=== PATIENT | female | born 1995 | race African-American/Black ===

== ENCOUNTER 2024-12-29 19:12 | Emergency (ER) | payer OTHER, SELFPAY ==
--- OUTSIDE RECORDS SUMMARY | 2024-12-29 19:20 | XMS_ITS ---
[place] ANESTHESIA PRE/POST-OP CONSULT [facility] Encounter Summary Created on: December 29, 2024 SYLVESTER DAVID : 1995 Sex: Female Author Name [facility] [place] Organization [facility] [place] Address [address] [place] [address] Care Team Providers Care Warp Spooler Name Role Phone ADELAIDE CERDA Primary Care Provider Unavailabl NAIMA Schaefer Primary Care Provider Unavailab SUKHJINDER Blas Primary Care Provider Unavailab mike Insurance Providers: All historical and current Section Date Range: From patient's date of to the date document was created. This section includes the names of all active insurance providers for the patient. Insurance Provider Type of Coverage Plan Name Start of Policy Coverage End of Policy Coverage Group Number Member ID Insurance Provider's Telephone Number Policy Sorenson's Name Patient's Relationship to Policy Sorenson [facility] Oct 20, 2020 [employer] [id number] DIONNA PHAN SPOUSE Selected Encounter This section includes the information on record at [place] for the Encounter. Date/Time Encounter Type Encounter Description Reason Provider Source Nov 06, 2024 12:06 PM Outpatient Encounter ANESTHESIA PRE/POST-OP CONSULT ICD-10-CM Z01.818 Encounter for other preprocedural examination BETY SAHU E Encounter Template Text not used by [place] Assessments - Encounter Diagnoses This section includes the primary and secondary diagnoses documented for the Encounter. 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 MAGDA SAHU [facility] Nov 06, 2024 12:18 PM SECONDARY Embolism and thrombosis of renal vein MAGDA SAHU [facility] Nov 06, 2024 12:18 PM SECONDARY Generalized anxiety disorder MAGDA SAHU [facility] Nov 06, 2024 12:18 PM SECONDARY Low back pain, unspecified MAGDA SAHU [facility] Nov 06, 2024 12:18 PM SECONDARY Unspecified hydronephrosis MAGDA SAHU [facility] Plan of Treatment: Future Appointments (+ 6 months) and Future Tests (+/- 45 days) The Plan of Treatment section includes future care activities for the patient from all [place] [facility] This section includes future appointments and future orders which are active, pending or scheduled. Future Appointments This section includes appointments that were scheduled to occur 6 months from the date of the Encounter, up to a maximum of 20 appointments. The data comes from all [place] treatment facilities. Appointment Date/Time Appointment Type Appointme nt Facility Name Nov 15, 2024 06:00 AM AMBULATORY - NONE [facility] Nov 22, 2024 01:30 PM AMBULATORY - NONE [facility] Nov 28, 2024 02:00 PM AMBULATORY - SURGERY [facility] Jan 10, 2025 09:20 AM AMBULATORY - SURGERY [facility] January 31, 2025 11:00 AM AMBULATORY - MEDICINE [facility] Active, Pending, and Scheduled Orders This section includes a listing of several types of active, pending, and scheduled orders, including clinic medications orders, diagnostic test orders, procedure orders and consult orders; where the start date of the order is 45 days before the date of the Encounter or 45 days after the date of theEncounter. The data comes from all [facility]. Test Date/Time Test Type Test Details Facility Name Nov 15, 2024 06:00 AM Laboratory - Chemi stry Order TEST URINE (MA-STL) URINE YELLOW STAT [facility] Nov 18, 2024 12:00 AM Laboratory - Chemi stry Order URINALYSIS (STL-PB) URINE [facility] Nov 18, 2024 12:00 AM Laboratory - Microbiology Order C&S URINE URINE,CLEAN CATCH [facility] Nov 18, 2024 12:00 AM Laboratory - Chemi stry Order TEST URINE (MA-STL) URINE YELLOW [facility] Lab Results: +/- 30 days of the encounter This section includes the Chemistry and Hematology Lab Results on record with [place] for the patient. Radiology Reports and Pathology Reports are provided separately, in subsequent sections. Lab Results This section contains the Chemistry/Hematology Results that were resulted 30 days before or 30 daysafter the date of the Encounter. Date/Time Source Result Type Result - Unit Interpretation Reference Range Specimen Type Comment Nov 22, 2024 01:16 PM [facility] I-STAT, CREAT (STL-MA) BLOOD Specimen Type: BLOOD Comment: Test Performed by: [id number] Meter #: [id number] Ordering Provider: SUKHJINDER GLEZ Report Released Date/Time: Nov 22, 2024 03:22 PM Reporting Lab: [facility] [address] [facility] [address] Performing Lab: [facility] [address] [facility] [id number] I-STAT, CREAT (STL-MA) 0.8 mg/dL 0.7-1.3 Nov 15, 2024 06:20 AM [facility] POC CLINITEST HCG URINE Specimen Type: URINE Comment: Test Performed by: [id number] Meter #: [id number] Ordering Provider: KWESI GONZALES Report Released Date/Time: Nov 15, 2024 06:26 AM Reporting Lab: [facility] [address] [facility] [id number] Performing Lab: [place] [address] [facility] [address] POC CLINITEST HCG Negative Negative Social History: Smoking Status (Most current) and Tobacco Use (All prior to encounter date) This section includes the most current, and the historical, smoking and tobacco- related health factors from the [place] facility where the Encounter took place. Current Smoking Status This section includes the most current smoking, or tobacco-related health factor, from the [place] facility where the Encounter took place. Date/Time Current Smoking Status Comment Facil ity Jul 31, 2023 02:36 AM ORYX ADMIT TOBACCO SCREEN YES [facility] Tobacco Use History This section includes a history of the smoking, or tobacco-related health factors, that were collected on or before the date of the Encounter. The data comes from the [place] facility where the Encounter took place. 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 For cases when an order for radiology services may have been completed after the date of the Encounter, the report list also includes the Radiology Reports that were completed up to30 days after date of the Encounter. The data comes from all [place] treatment facilities. Date/Time Radiology Report Provider Source Nov 22, 2024 01:[address] ABD PEL W/CONT & 3D: SYLVESTERDAVID [id number] -1995 F Exm Date: NOV 22, 2024@13:04 Req Phys: POLLY TAMAYO Loc: [facility]ASC[facility]G II (Req'g Loc Img Loc: [facility] Service: Unknown Screen: Patient answered no [facility], [facility] [address] [place] [address] (Case [id number] COMPLETE) CT ABDOMEN AND PELVIS W/CONTRAST (CT Detailed) CPT:35397 Contrast Media : Non-ionic Iodinated Reason for Study: please perform CT venogram Clinical History: Responsible Attending: Kwesi gonzales Attending Contact Number: vascular surgery II 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 CREATININE 0.59 mg/dL L (10/04/24 12:48) Wt: 162.1 lb [73.53 kg] (10/31/2024 15:16) History of: Renal failure, chronic or acute renal disease: NO Report Status: Verified Date Reported: NOV 25, 2024 Date Verified: NOV 25, 2024 Log Feeder E-Sig:/ES/SHEELA NOBLE MD Report: Spiral axial imaging through the abdomen and pelvis was performed with IV contrast in the venous phase Comparison: 07/30/2023 Liver: normal The spleen: normal Pancreas: normal Adrenal glands: No significant abnormality Kidneys: Left hydronephrosis again noted with dilated left renal pelvis, but no dilated ureter, possibly indicating UPJ obstruction . Left renal vein crosses anterior to the aorta Aorta and retroperitoneum: Calcified plaque, caliber does not exceed 3 cm. No retroperitoneal adenopathy. Peritoneal cavity: No ascites. Skeleton: Unremarkable. The term unremarkable may include mild to moderate arthritic changes that would not be considered unusual for the patient's age Pelvis: Enlarged myomatous uterus Impression: Left hydronephrosis. Normal left renal vein Primary Interpreting Staff: SHEELA NOBLE MD, Radiologist (Log Feeder) /SHEELA DOSHI [facility] Nov 15, 2024 06:38 AM FLUOROS(SEPARATE PROCEDURE),UP TO 1 HOUR: DAVID PHAN [id number] -1995 F Exm Date: NOV 15, 2024@06:38 Req Phys: KWESI GONZALES Pat Loc: OP Unknown/11-18-2024@12:32 Img Loc: [facility]Y SUITE Service: Unknown Screen: Patient answered no [facility], [facility] [address] [place] [address] (Case [id number] COMPLETE) FLUOROS(SEPARATE PROCEDURE),UP TO(RAD Detailed) CPT:28440 CPT Modifiers : TC TECHNICAL COMPONENT Reason for Study: venogram Clinical History: Report Status: Verified Date Reported: NOV 18, 2024 Date Verified: NOV 18, 2024 Log Feeder E-Sig: Report: Fluoroscopy was provided to another service. For detailed report on procedure, please see note entered in CPRS by performing physician. Impression: 1. Technical service only. 2. For detailed report of procedure, please see note in CPRS entered by the by physician who performed the procedure. 3. This is a non-medical report and was therefore completed administratively. Primary Interpreting Staff: SHERLYN TAYLOR, RADIOLOGIST Verified by human resources leader for SHERLYN TAYLOR /SHERLYN MORFIN [facility] Encounter Notes: All associated encounter notes This section contains the clinical notes associated to the Encounter. Date/Time Encounter Note(s) Provider Source Nov 06, 2024 12:06 PM CONSULT: LOCAL TITLE: E-CONSULT ANESTHESIA ST STANDARD TITLE: CONSULT DATE OF NOTE: NOV 06, 2024@12:06 ENTRY DATE: NOV 06, 2024@12:06:13 AUTHOR: KRISTINA SAHU COSIGNER: URGENCY: STATUS: COMPLETED DAVID PHAN is a 29 year old FEMALE The reason for eConsult: Pre-operative evaluation I have reviewed pertinent documentation in the electronic medical record for this patient. The recommendations/findings offered are the result of information from the requesting provider and a CHART REVIEW ONLY. The 's chart was reviewed. The patient is scheduled for left renal venogram 11/15/24. VITALS Age: 29 Weight: 162.1 lb [73.53 kg] (10/31/2024 15:16) Height: 66 in [167.6 cm] (10/31/2024 15:16) BMI: 26.2 Blood pressure: 121/82 (10/31/2024 15:16) Pulse: 78 (10/31/2024 15:16) Temperature: 98.2 F [36.8 C] (10/31/2024 15:16) Respiration: 16 (10/31/2024 15:16) SpO2: 99% (10/31/2024 15:16) Pain: 6 (10/31/2024 15:16) ALLERGIES CEPHALOSPORIN 1ST GENERATION MEDICATIONS RXAE - Active/Exp Opt Meds 1) DICLOFENAC NA 75MG EC TAB ACTIVE TAKE ONE TABLET BY MOUTH EVERY MORNING AND EVENING FOR PAIN - TAKE WITH FOOD 2) EE 0.035MG/NORGESTIMATE TRIPHASIC TAB,28 ACTIVE TAKE 1 TABLET BY MOUTH ONCE A DAY FOR CONTROL 3) LIDOCAINE 5% PATCH ACTIVE APPLY 1 PATCH TO SKIN SITE ONCE A DAY APPLY PATCH AND PRESS FIRMLY FOR 10-15 SECONDS. KEEP ON FOR 12 HOURS THEN REMOVE PATCH FOR 12 HOURS. 4) METHOCARBAMOL 500MG TAB ACTIVE TAKE 1 TABLET BY MOUTH FOUR TIMES A DAY NEEDED FOR MUSCLE SPASM 5) SERTRALINE HCL 50MG TAB ACTIVE TAKE ONE TABLET BY MOUTH EVERY MORNING FOR 30 DAYS, THEN TAKE ONE AND ONE-HALF TABLETS EVERY MORNING FOR 60 DAYS 6) ALPRAZOLAM 0.25MG TAB TAKE ONE TABLET BY MOUTH THREE TIMES A DAY NEEDED N O N - V A M E D I C A T I O N S O N F I L E 1) BENZONATATE 100MG CAP ACTIVE 100MG BY MOUTH THREE TIMES A DAY NEEDED 2) BENZONATATE 100MG CAP ACTIVE 100MG BY MOUTH THREE TIMES A DAY NEEDED 3) DOXYCYCLINE HYCLATE 100MG TAB ACTIVE 100MG BY MOUTH TWICE A DAY 4) DOXYCYCLINE HYCLATE 100MG TAB ACTIVE 100MG BY MOUTH TWICE A DAY 5) FLUCONAZOLE 150MG TAB ACTIVE 150MG BY MOUTH EVERY 72 HOURS NEEDED 6) MOMETASONE FUROATE 220MCG ORAL INHL 60 ACTIVE 1 PUFF BY ORAL INHALATION EVERY EVENING LABS WBC 8.4 10*3/uL 10/04/2024 12:48 RBC 4.41 10*6/uL 10/04/2024 12:48 HGB 12.8 g/dL 10/04/2024 12:48 HCT 38.7 % 10/04/2024 12:48 MCV 87.8 fL 10/04/2024 12:48 MCH 29.0 pg 10/04/2024 12:48 MCHC 33.1 g/dL 10/04/2024 12:48 RDW 13.0 % 10/04/2024 12:48 PLT 291 10*3/uL 10/04/2024 12:48 MPV 10.2 fL 10/04/2024 12:48 NEUTROPHILS, AUTO % 62 % 10/04/2024 12:48 LYMPHOCYTES, AUTO % 31 % 10/04/2024 12:48 MONOCYTES, AUTO % 5 % 10/04/2024 12:48 EOSINOPHILS, AUTO % 2 % 10/04/2024 12:48 BASOPHILS, AUTO % 1 % 10/04/2024 12:48 NEUTROPHILS, ABSOLUTE 5.16 10*3/uL 10/04/2024 12:48 LYMPHOCYTES, ABSOLUTE 2.57 10*3/uL 10/04/2024 12:48 MONOCYTES, ABSOLUTE 0.44 10*3/uL 10/04/2024 12:48 EOSINOPHILS, ABSOLUTE 0.14 10*3/uL 10/04/2024 12:48 BASOPHILS, ABSOLUTE 0.05 10*3/uL 10/04/2024 12:48 No INR EO data found No PTT EO data found SODIUM 137 mEq/L 10/04/2024 12:48 POTASSIUM 4.1 mEq/L 10/04/2024 12:48 CHLORIDE 105 mEq/L 10/04/2024 12:48 UREA NITROGEN 7.5 L mg/dL 10/04/2024 12:48 CREATININE 0.59 L mg/dL 10/04/2024 12:48 CALCIUM 9.0 mg/dL 10/04/2024 12:48 PROTEIN 7.6 g/dL 10/04/2024 12:48 ALBUMIN 3.9 g/dL 10/04/2024 12:48 ALKALINE PHOSPHATASE 73 U/L 10/04/2024 12:48 ALT/SGPT 9 U/L 10/04/2024 12:48 AST/SGOT 38 H U/L 10/04/2024 12:48 TOTAL BILIRUBIN 0.6 mg/dL 10/04/2024 12:48 CARBON DIOXIDE 23 mEq/L 10/04/2024 12:48 GLUCOSE 94 mg/dL 10/04/2024 12:48 EGFR (CKD-EPI 2020) 124.3 10/04/2024 12:48 HGA1C 5.4 % 10/04/2024 12:48 Collection time: Oct 04, 2024@12:48 Test Name Result Units Range --------- ------ ----- ----- TOTAL T3 (STL-PB) 118.11 ng/dL 58 - 159 TSH 0.351 L uIU/mL 0.47 - 5 FREE T4 (STL) 1.02 ng/mL 0.7 - 1.48 No URINE DRUG SCREEN EO data found No HIV SCREENING EO data found [facility] Hep C tests in last five years. HEP C Ab HCV Ab (STL) Nonreactive S/CO (12/22/22 14:00) DIAGNOSTICS EKG: none CXR: No Impressions found PROBLEM LIST 1) Tobacco use comment: 1/2 ppd 2) Liver enzymes level above reference range 3) LBP - Low back pain 4) Cervical pain 5) Thyroid goiter 6) Vitamin D Deficiency ([facility] [id number]) 7) UPJ - Ureteropelvic obstruction comment: hydronephrosis left side with re construction 8) Anxiety ([facility] [id number]) 9) Overweight 10) Hydronephrosis comment: left ureter w pyelonephritis. 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, left renal vein impingement REVIEW OF SYSTEMS/PAST MEDICAL HISTORY RESPIRATORY for: - Sleep apnea - Asthma - COPD CARDIAC for: - Hypertension - Hyperlipidemia - Myocardial infarction - Coronary artery disease - Heart failure - Valvular disease - Atrial fibrillation/flutter PSYCH/CENTRAL NERVOUS for: + Depression + Anxiety - Post-traumatic stress disorder - Cerebral vascular accident - Seizures ENDOCRINE for: - Diabetes - Hypothyroid + subclinical hyperthyroid (per PCP) RENAL for: - Chronic kidney disease - Nephrolithiasis + renal vein thrombosis + hx left hydronephrosis and UPJ obestucion, s/p pyeloplasty GI for: - GERD - Liver disease - GI bleed VASCULAR/HEMATOLOGY/ONCOLOG Y for: - Anemia - Thrombocytopenia - Bleeding disorders MUSCULOSKELETAL/SKIN/PERIPH ERAL NERVOUS for: - Obesity - Arthritis/Degenerative joint disease - Rheumatoid arthritis - Neuropathy + sciatica /REPRODUCTIVE for: - Prostate hypertrophy BETA BLOCKERS: NONE RECOMMENDATIONS/PLAN: 1. Additional labs/imaging/consults needed for anesthesia team: test AM of surgery 2. The patient may proceed as planned and will be reassessed by Anesthesia AM of surgery. 3. NPO after midnight except for small sips of water with meds. 4. Unless directed by procedural team, take morning medications with a sip of water. 5. If patient uses CPAP, they should bring machine with them. 16 minutes to 30 minutes spent reviewing patient's medical records. /astrid/ KRISTINA SAHU PA-C Physician [employer] Specialist, Anesthesiology Signed: 11/06/2024 12:18 Receipt Acknowledged By: 11/06/2024 15:08 /astrid/ TAYLA BRINK PA-C Physician [employer] Specialist, Surgery KRISTINA SAHU [facility]
--- OUTSIDE RECORDS SUMMARY | 2024-12-29 19:20 | XMS_ITS | Encounter Summary ---
Author Name [facility] [place] [facility] [place] Address [address] [place] [address] Care Team Providers Care Pegger Dobby Looms Name Role Phone PRASHANT ADELAIDE Primary Care Provider Unavailabl NAIMA Schaefer Primary [...] Sorenson's Name Patient's Relationship to Policy Sorenson [address] Oct 20, 2020 ACTIVE DUTY [phone] DIONNA PHAN SPOUSE Selected Encounter This section includes the information on record at [place] for the Encounter. Date/Time Encounter Type Encounter Description Reason Provider Source Nov 01, 2024 11:00 AM PSYTX W PT 30 MINUTES PCMHI INDIV ICD-10-CM F41.9 Anxiety disorder, unspecified LIDIA LEYVA IHDeepthi Encounter Template Text not used by [facility] Assessments - Encounter Diagnoses This section includes the primary and secondary diagnoses documented for the Encounter. Date/Time Primary/Secondary Diagnosis Diagnosis Name Provider Source Nov 07, 2024 04:37 PM PRIMARY Anxiety disorder, unspecified LIDIA LEYVA [facility] Plan of Treatment: Future Appointments (+ 6 months) and Future Tests (+/- 45 days) The Plan of Treatment section includes future care activities for the patient from all [place] [facility] This section includes future appointments and future orders which are active, pending or scheduled. Future Appointments This section includes appointments that were scheduled to occur 6 months from the date of the Encounter, up to a maximum of 20 appointments. The data comes from all [facility]. Appointment Date/Time Appointment Type Appointme nt Facility Name Nov 15, 2024 06:00 AM AMBULATORY - NONE [facility] Nov 22, 2024 01:30 PM AMBULATORY - NONE [facility] Nov 28, 2024 02:00 PM AMBULATORY - SURGERY . [facility] Jan 10, 2025 09:20 AM AMBULATORY - SURGERY [facility] January 31, 2025 11:00 AM AMBULATORY - MEDICINE [facility] Active, Pending, and Scheduled Orders This section includes a listing of several types of active, pending, and scheduled orders, including clinic medications orders, diagnostic test orders, procedure orders and consult orders; where the start date of the order is 45 days before the date of the Encounter or 45 days after the date of theEncounter. The data comes from all [facility]. Test Date/Time Test Type Test Details Facility Name Nov 15, 2024 06:00 AM Laboratory - Chemi stry Order TEST URINE (MA-STL) URINE YELLOW STAT [facility] Nov 18, 2024 12:00 AM Laboratory - Chemi stry Order URINALYSIS (STL-PB) URINE [facility] Nov 18, 2024 12:00 AM Laboratory - Microbiology Order C&S URINE URINE,CLEAN CATCH [facility] Nov 18, 2024 12:00 AM Laboratory - Chemi stry Order TEST URINE (MA-STL) URINE YELLOW [facility] Lab Results: +/- 30 days of the encounter This section includes the Chemistry and Hematology Lab Results on record with [facility] for the patient. Radiology Reports and Pathology Reports are provided separately, in subsequent sections. Lab Results This section contains the Chemistry/Hematology Results that were resulted 30 days before or 30 daysafter the date of the Encounter. Date/Time Source Result Type Result - Unit Interpretation Reference Range Specimen Type Comment Nov 22, 2024 01:16 PM [facility] I-STAT, CREAT (STL-MA) BLOOD Specimen Type: BLOOD Comment: Test Performed by: [id number] Meter #: [id number] Ordering Provider: SUKHJINDER GLEZ Report Released Date/Time: Nov 22, 2024 03:22 PM Reporting Lab: [address] [address] Performing Lab: [address] [address] I-STAT, CREAT (STL-MA) 0.8 mg/dL 0.7-1.3 Nov 15, 2024 06:20 AM [facility] POC CLINITEST HCG URINE Specimen Type: URINE Comment: Test Performed by: [id number] Meter #: [id number] Ordering Provider: KWESI GONZALES Report Released Date/Time: Nov 15, 2024 06:26 AM Reporting Lab: [address] [phone] Performing Lab: [address] [address] POC CLINITEST HCG Negative Negative Oct 04, 2024 12:48 PM [facility] LIPID PANEL (STL) PLASMA Specimen Ty pe: PLASMA Comment: No hemolysis noted. Ordering Provider: SUKHJINDER GLEZ Report Released Date/Time: Oct 04, 2024 10:09 AM Reporting Lab: [address] [address] Performing Lab: [address] [address] CHOLESTEROL 181 mg/dL 0-200 TRIGLYCERIDE 85 mg/dL 0-150 CALCULATED LDL 114 mg/dL HDL(New) 50 mg/dL >40 Oct 04, 2024 12:48 PM [facility] URINALYSIS (STL-PB) URINE Specimen Type: URIN E No comment entered. Ordering Provider: SUKHJINDER GLEZ Report Released Date/Time: Oct 04, 2024 10:09 AM Reporting Lab: [address] [address] Performing Lab: [address] [address] URINE COLOR Light-Yellow Yellow U.BILIRUBIN Negative mg/dL Negative U.PH 6.5 5.0-8.0 APPEARANCE Clear Clear U.NITRITE Negative mg/dL Negative URN.GLUCOSE Normal mg/dL Negative URN.PROTEIN Negative mg/dL URN.UROBILINOGEN Normal mg/dL Normal URN.BLOOD Negative mg/dL Negative-Trace URN.KETONES Negative mg/dL Negative-Trac e URN.LEUK.EST. Negative mg/dL Negative-Tr bernie URN.SPECIFIC GRAVITY 1.014 Oct 04, 2024 12:48 PM [facility] CBC BLOOD Specimen Type: BLOOD No comment entered. Ordering Provider: SUKHJINDER GLEZ Report Released Date/Time: Oct 04, 2024 10:09 AM Reporting Lab: [address] [address] Performing Lab: [address] [address] WBC 8.4 10*3/uL 3.6-11.2 RBC 4.41 10*6/uL 3.60-5.00 HGB 12.8 g/dL 11.0-14.9 HCT 38.7 32.6-43.4 MCV 87.8 fL 80.0-100.0 MCH 29.0 pg 27.0-34.0 MCHC 33.1 g/dL 33.0-36.0 PLT 291 10*3/uL 150-400 MPV 10.2 fL 7.5-11.2 RDW 13.0 11.8-15.1 LYMPHOCYTES, AUTO % 31 MONOCYTES, AUTO % 5 NEUTROPHILS, AUTO % 62 EOSINOPHILS, AUTO % 2 BASOPHILS, AUTO % 1 LYMPHOCYTES, ABSOLUTE 2.57 10*3/uL 0.77- 4.50 MONOCYTES, ABSOLUTE 0.44 10*3/uL 0.19-0. 80 NEUTROPHILS, ABSOLUTE 5.16 10*3/uL 2.10- 8.00 EOSINOPHILS, ABSOLUTE 0.14 10*3/uL 0.00- 0.60 BASOPHILS, ABSOLUTE 0.05 10*3/uL 0.00-0. 20 Oct 04, 2024 12:48 PM [facility] HGA1C BLOOD Specimen Type: BLOOD No comment entered. Ordering Provider: SUKHJINDER GLEZ Report Released Date/Time: Oct 04, 2024 10:09 AM Reporting Lab: [place] [id number] Performing Lab: [address] [address] HGA1C 5.4 4.0-6.0 Oct 04, 2024 12:48 PM [facility] TSH W/ REFLEX FT4 (STL) PLASMA Speci men Type: PLASMA No comment entered. Ordering Provider: SUKHJINDER GLEZ Report Released Date/Time: Oct 04, 2024 10:09 AM Reporting Lab: [facility] [address] [place] [phone] Performing Lab: [address] [address] TSH 0.351 u[IU]/mL L 0.47-5 Oct 04, 2024 12:48 PM [facility] FREE T4 (STL) PLASMA Specimen Type: PLASMA No comment entered. Ordering Provider: SUKHJINDER GLEZ Report Released Date/Time: Oct 04, 2024 10:09 AM Reporting Lab: [address] [address] Performing Lab: [address] [address] FREE T4 (STL) 1.02 ng/mL 0.7-1.48 Oct 04, 2024 12:48 PM [facility] TOTAL T3 (STL) PLASMA Specimen Type: PLASMA No comment entered. Ordering Provider: SUKHJINDER GLEZ Report Released Date/Time: Oct 04, 2024 10:09 AM Reporting Lab: [facility] [address] [facility] [address] Performing Lab: [facility] [address] [place] [phone] TOTAL T3 (STL) 118.11 ng/dL 58-159 Oct 04, 2024 12:48 PM [facility] VITAMIN D, 25-HYDROXY SERUM Specimen Type: SE RUM Comment: The listed sex of this patient may not be a typical indication for this test. Therefore, reference ranges or interpretive criteria listed may not be valid. Clinical correlation suggested. Ordering Provider: SUKHJINDER GLEZ Report Released Date/Time: Oct 04, 2024 10:09 AM Reporting Lab: [facility] [address] [place] [phone] Performing Lab: [address] [address] VITAMIN D, 25-HYDROXY 40.1 ng/mL 30-96 Oct 04, 2024 12:48 PM [facility] TEST URINE (MA-STL) URINE Specimen Type: URINE No comment entered. Ordering Provider: SUKHJINDER GLEZ Report Released Date/Time: Oct 04, 2024 10:11 AM Reporting Lab: [facility] [address] [facility] [address] Performing Lab: [address] [address] Qualitative Test NEG NEGAT BRIANNE Oct 04, 2024 12:48 PM [facility] HCG QUANT SERUM Specimen Type: SERUM Comment: The listed sex of this patient may not be a typical indication for this test. Therefore, reference ranges or interpretive criteria listed may not be valid. Clinical correlation suggested. Ordering Provider: SUKHJINDER GLEZ Report Released Date/Time: Oct 04, 2024 10:11 AM Reporting Lab: [facility] [address] [place] [phone] Performing Lab: [facility] [address] [place] [phone] HCG QUANT <1.20 m[IU]/mL 0-5 Oct 04, 2024 12:48 PM [facility] COMPREHENSIVE METABOLIC PANEL PLASMA Specimen Type: PLASMA Comment: No hemolysis noted. Ordering Provider: SUKHJINDER GLEZ Report Released Date/Time: Oct 04, 2024 10:09 AM Reporting Lab: [facility] [address] [facility] [address] Performing Lab: [facility] [address] [facility] [address] CREATININE 0.59 mg/dL L 0.6-1.1 UREA NITROGEN 7.5 mg/dL L 9.0-25.0 GLUCOSE 94 mg/dL 72-99 SODIUM 137 meq/L 136-145 POTASSIUM 4.1 meq/L 3.5-5 CHLORIDE 105 meq/L 98-107 CARBON DIOXIDE 23 meq/L 22-31 CALCIUM 9.0 mg/dL 8.4-10.4 PROTEIN 7.6 g/dL 6-8.6 ALBUMIN 3.9 g/dL 3.4-5 TOTAL BILIRUBIN 0.6 mg/dL 0.2-1.2 ALKALINE PHOSPHATASE 73 U/L 40-150 AST/SGOT 38 U/L H 5-34 ALT/SGPT 9 U/L 8-40 EGFR (CKD-EPI 2020) 124.3 >60 Social History: Smoking Status (Most current) and Tobacco Use (All prior to encounter date) This section includes the most current, and the historical, smoking and tobacco- related health factors from the [place] facility where the Encounter took place. Current Smoking Status This section includes the most current smoking, or tobacco-related health factor, from the [place] facility where the Encounter took place. Date/Time Current Smoking Status Comment Sophia pollock Oct 04, 2024 10:30 AM VA-TOBACCO NEVER USED OTHER TYPE [facility] Tobacco Use History This section includes a history of the smoking, or tobacco-related health factors, that were collected on or before the date of the Encounter. The data comes from the [place] facility where the Encounter took place. Date/Time Smoking Status/Tobacco Use Comment Pranay taylor Oct 04, 2024 10:30 AM VA-TOBACCO NEVER USED OTHER TYPE [facility] Dec 22, 2022 01:00 PM VA-TOBACCO DOESNT USE WI 30 MIN WAKEUP [facility] Dec 22, 2022 01:00 PM VA-TOBACCO USE 5 TO 15 YEARS [facility] Dec 22, 2022 01:00 PM VA-TOBACCO USE ADVICE [facility] Dec 22, 2022 01:00 PM VA-TOBACCO USE OUTDOOR ADVENTURE GUIDES NO [facility] Dec 22, 2022 01:00 PM VA-TOBACCO USE MED NO [facility] Dec 22, 2022 01:00 PM VA-TOBACCO USER EVERY DAY [facility] Radiology Reports: +/- 30 days of the [...] the Encounter. The data comes from all [place] treatment facilities. Date/Time Radiology Report Provider Source Nov 22, 2024 01:[address] ABD PEL W/CONT & 3D: DAVID PHAN [id number] -1995 F Exm Date: NOV 22, 2024@13:04 Req Phys: POLLY TAMAYO Pat Loc: [facility]-VASCULAR SURG II (Req'g Loc Img Loc: [place]-CT IMAGING [facility] Service: Unknown Screen: Patient answered no [facility] [address] [place] [address] (Case [id number] COMPLETE) CT ABDOMEN AND PELVIS W/CONTRAST (CT Detailed) CPT:34309 Contrast Media : Non-ionic Iodinated Reason for [...] 25, 2024 Date Verified: NOV 25, 2024 Animal Care Technician E-Sig:/ES/SHEELA NOBLE MD Report: Spiral axial imaging [...] Primary Interpreting Staff: SHEELA NOBLE MD, Radiologist (Animal Care Technician) /[facility] SHEELA NOBLE [facility] Nov 15, 2024 06:38 AM FLUOROS(SEPARATE PROCEDURE),UP TO 1 HOUR: SYLVESTERDAVID [id number] -1995 F Exm Date: NOV 15, 2024@06:38 Req Phys: KWESI GONZALES Pat Loc: OP Unknown/11-18-2024@12:32 Img Loc: -MAIN RADIOLOGY SUITE Service: Unknown Screen: Patient answered no [facility], [facility] [address] [place] [address] (Case [id number] COMPLETE) FLUOROS(SEPARATE PROCEDURE),UP TO(RAD Detailed) CPT:74408 CPT Modifiers : TC TECHNICAL COMPONENT Reason for Study: venogram Clinical History: Report Status: Verified Date Reported: NOV 18, 2024 Date Verified: NOV 18, 2024 Animal Care Technician E-Sig: Report: Fluoroscopy was provided to another [...] Interpreting Staff: SHERLYN TAYLOR, RADIOLOGIST Verified by grain oilseed or pasture farm manager for SHERLYN TAYLOR /ANDREW TAYLOR,SHERLYN [facility] Pathology Reports: +/- 30 days of the encounter Pathology Reports For cases when an order for pathology services may have been completed prior to the date of the Encounter, the report list includes the Pathology Reports that were completed up to 30 days before dateof the Encounter. For cases when an order for pathology services may have been completed after the date of the Encounter, the report list also includes the Pathology Reports that were completed up to30 days after date of the Encounter. The data comes from all [place] treatment facilities. Date/Time Pathology Report Provider Source Oct 04, 2024 12:48 PM LR MICROBIOLOGY RE PORT: Accession [UID]: [id number] [[id number]] Received: Oct 04, 2024@17:34 Collection sample: URINE,CLEAN CATCH Collection date: Oct 04, 2024 12:48 Site/Specimen: URINE Provider: SUKHJINDER GLEZ Test(s) ordered: C&S URINE..................... completed: Oct 06, 2024 13:33 * BACTERIOLOGY FINAL REPORT => Oct 06, 2024 14:23 TECH CODE: [id number] Bacteriology Remark(s): 10/06/24 CULTURE SHOWS NO GROWTH IN 1 DAY. =--=--=--=--=--=--=--=--=--=--=-- =--=--=--=--=--=--=--=--=--=--=-- =--=--=--=-- Performing Laboratory: Bacteriology Report Performed By: [facility] [address] [place] [address] CLIA# [id number] [address] [facility] [address] [place] [address] PAMELA HICKS [facility] Encounter Notes: All associated encounter notes This section contains the clinical notes associated to the Encounter. Date/Time Encounter Note(s) Provider Source Nov 01, 2024 12:16 PM PSYCHOLOGY OUTPATI ENT NOTE: LOCAL TITLE: PRIMARY CARE PSYCHOLOGY NOTE [facility] STANDARD TITLE: PSYCHOLOGY OUTPATIENT NOTE DATE OF NOTE: NOV 01, 2024@12:16 ENTRY DATE: NOV 01, 2024@12:16:35 AUTHOR: LIDIA LEYVA COSIGNER: URGENCY: STATUS: COMPLETED Follow-up Template NAME: DAVID PHAN DATE OF : Mar TIME SPENT WITH PATIENT: 30 minutes DIAGNOSIS BEING TREATED: AGAPITO CPT Code: 41356 NATURE OF ENCOUNTER: follow up visit SESSION FORMAT: [X] [id number] [ ] Video Telehealth [ ]Phone Confirmed [place]'s location and phone number for virtual appointment. [ ]Yes [X]N/A NOTE: Use separate CVT template, if appropriate SESSION NUMBER: 3 INTERVENTION/TREATMENT PROVIDED [X] Rapport Building [X] Shared decision-making regarding goals of care [X] Supportive Psychotherapy [X] Solution-Focused Psychotherapy [ ] Insight Oriented Psychotherapy [ ] Cognitive Behavioral Therapy Skills [ ] Acceptance and Commitment Therapy Skills [ ] Interpersonal Therapy Skills [ ] Motivational Interviewing [ ] Culture-based Interventions [ ] Health Psychology Interventions [ ] Evidence Based Psychotherapy: [ ] Psychosocial Interventions [ ] Other: Description of Interventions Provided by Therapist: RELEVANT HISTORICAL DEVELOPMENTS SINCE LAST CONTACT: NOTE: Describe relevant historical developments below reported undergoing a disturbing workplace event. Discussed ways of addressing trauma and additional coping skills which she can use in addition to PMR and DB. Worked with vet on grounding techniques. Vet receptive to psychoeducation and was able to practice in-vivo without complications. ASSESSMENT MEASURES USED: [ ] Measure in Mental Health Sewing Machine Mechanic. See accompanying Mental Health Diagnostic Study for details. [ x] Measure(s) sent via [facility], electronically following visit. [place] agrees to asynchronous electronic administration; when returned, measure results will be included in a note or addendum in CPRS [ ] Other Measures: Measure: Score: Measure: Score: [ ] N/A: Not administered this session Date/Score of last administration: [ ]Functional/Symptom Assessment: Symptom(s)/Function(s) tracked by Changes in frequency, intensity or duration since last visit: Collaboratively discussed outcomes related to assessment and treatment progress and measures will continue to be monitored. MEASURABLE TREATMENT GOALS FOR THIS EPISODE OF CARE: 1. GOAL/OBJECTIVES: Improve mood by decreasing anxiety and increasing use of coping skills. PROGRESS TOWARDS GOAL: progress noted today, in the context of recent traumatic experience. 2. GOAL/OBJECTIVES: PROGRESS TOWARDS GOAL: 3. GOAL/OBJECTIVES: PROGRESS TOWARDS GOAL: RESPONSE TO INTERVENTIONS: Veterans participation/engagement: [ x ]The participated actively in the current interventions. [ ]Other: The continues to consent to the current plan of care: Yes Comments: RISK ASSESSMENT: [x ] NO CHANGE IN RISK FACTORS Related to Suicide or Homicide. [place] did not report any current suicidal/homicidal ideation, plan, or intent. did not appear to be at imminent risk for suicide or homicide at this time and is considered sustainable at the current level of care. [ ] NEW/UPDATED RISK ASSESSMENT: -RELEVANT RISK AND PROTECTIVE FACTORS: -IDEATION: [ ] denied current suicidal or homicidal ideation, plan, or intent. [ ] Suicidal or homicidal ideation/behavior WAS identified: -CLINICAL JUDGMENT AND DISPOSITION: [ ] In consideration of relevant risk and protective factors, the [place] did NOT appear to be at imminent risk for suicide or homicide at this time and IS sustainable at the current level of care. [ ] IS considered to be at INCREASED RISK for suicide or homicide based upon: -Actions/interventions taken to address risk and prevent harm include: -Emergency protocols initiated were: ASSIGNED WORK: RTC submitted for follow-up appointment. to practice grounding homework. Notations taken to consider 's request for additional privacy. COLLABORATIVE RECOMMENDATIONS/PLAN: Collaboratively discussed outcomes related to assessment and treatment progress. Based on this discussion: [ x] No changes to plan of care. expressed agreement with therapy tasks and [id number] plan. [ ] Using shared decision making, [place] and provider agreed to the following change in plan: Educated [place] on the risks, benefits, and possible complications related to changes to treatment plan. [place] agreed to proceed with the change. [ ]YES [ ]NO It should be noted, this note was typed using a dictation software and there may be misspellings by mistake, as a result. /astrid/ iLdia Leyva Psy.D. Staff Psychologist Signed: 11/07/2024 16:[address] [facility]
--- OUTSIDE RECORDS SUMMARY | 2024-12-29 19:20 | XMS_ITS ---
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 Date/Time Encounter Type Encounter Description Reason Provider Source Oct 18, 2024 09:20 AM OFFICE O/P EST LOW 20 MIN UROLOGY CLINIC ICD-10-CM N13.30 Unspecified hydronephrosis CAIO NARAYANAN IHDeepthi Encounter Template Text not used by [facility] Assessments - Encounter Diagnoses This section includes the primary and secondary diagnoses documented for the Encounter. Date/Time Primary/Secondary Diagnosis Diagnosis Name Provider Source Oct 18, 2024 10:11 AM PRIMARY Unspecified hydronephrosis EDEN SANCHEZ [facility] Plan of Treatment: Future Appointments (+ 6 months) and Future Tests (+/- 45 days) The Plan of Treatment section includes future care activities for the patient from all [place] [facility]. This section includes future appointments and future orders which are active, pending or scheduled. Future Appointments This section includes appointments that were scheduled to occur 6 months from the date of the Encounter, up to a maximum of 20 appointments. The data comes from all [place] treatment [facility]. Appointment Date/Time Appointment Type Appointme nt Facility Name Oct 24, 2024 09:00 AM AMBULATORY - NONE . [facility] Oct 31, 2024 03:00 PM AMBULATORY - SURGERY . [facility] Nov 01, 2024 11:00 AM AMBULATORY - MEDICINE [facility] Nov 15, 2024 06:00 AM AMBULATORY - NONE [facility] Nov 22, 2024 01:30 PM AMBULATORY - NONE [facility] Nov 28, 2024 02:00 PM AMBULATORY - SURGERY [facility] Jan 10, 2025 09:20 AM AMBULATORY - SURGERY [facility] January 31, 2025 11:00 AM AMBULATORY - MEDICINE [facility] Active, Pending, and Scheduled Orders This section includes a listing of several types of active, pending, and scheduled orders, including clinic medications orders, diagnostic test orders, procedure orders and consult orders; where the start date of the order is 45 days before the date of the Encounter or 45 days after the date of theEncounter. The data comes from all [facility]. Test Date/Time Test Type Test Details Facility Name Nov 15, 2024 06:00 AM Laboratory - Chemi stry Order TEST URINE (MA-STL) URINE YELLOW STAT [facility] Nov 18, 2024 12:00 AM Laboratory - Microbiology Order C&S URINE URINE,CLEAN CATCH [facility] Nov 18, 2024 12:00 AM Laboratory - Chemi stry Order URINALYSIS (STL-PB) URINE [facility] Nov 18, 2024 12:00 AM Laboratory - Chemi stry Order TEST URINE (MA-STL) URINE YELLOW [facility] Lab Results: +/- 30 days of the encounter This section includes the Chemistry and Hematology Lab Results on record with [place] for the patient. Radiology Reports and Pathology Reports are provided separately, in subsequent sections. Lab Results This section contains the Chemistry/Hematology Results that were resulted 30 days before or 30 daysafter the date of the Encounter. Date/Time Source Result Type Result - Unit Interpretation Reference Range Specimen Type Comment Nov 15, 2024 06:20 AM [facility] POC CLINITEST HCG URINE Specimen Type: URINE Comment: Test Performed by: [id number] Meter #: [id number] Ordering Provider: CHARITY ARDON Report Released Date/Time: Nov 15, 2024 06:26 AM Reporting Lab: [facility] [address] [facility] [phone] Performing Lab: [place] [address] [facility] [address] POC CLINITEST HCG Negative Negative Oct 04, 2024 12:48 PM [facility] LIPID PANEL (STL) PLASMA Specimen Ty pe: PLASMA Comment: No hemolysis noted. Ordering Provider: SUKHJINDER GLEZ Report Released Date/Time: Oct 04, 2024 10:09 AM Reporting Lab: [facility] [address] [facility] [phone] Performing Lab: [place] [address] [facility] [phone] CHOLESTEROL 181 mg/dL 0-200 TRIGLYCERIDE 85 mg/dL 0-150 CALCULATED LDL 114 mg/dL HDL(New) 50 mg/dL >40 Oct 04, 2024 12:48 PM [facility] URINALYSIS (L-PB) URINE Specimen Type: URIN E No comment entered. Ordering Provider: SUKHJINDER GLEZ Report Released Date/Time: Oct 04, 2024 10:09 AM Reporting Lab: [address] [phone] Performing Lab: [address] [phone] URINE COLOR Light-Yellow Yellow U.BILIRUBIN Negative mg/dL Negative U.PH 6.5 5.0-8.0 APPEARANCE Clear Clear U.NITRITE Negative mg/dL Negative URN.GLUCOSE Normal mg/dL Negative URN.PROTEIN Negative mg/dL URN.UROBILINOGEN Normal mg/dL Normal URN.BLOOD Negative mg/dL Negative-Trace URN.KETONES Negative mg/dL Negative-Trac e URN.LEUK.EST. Negative mg/dL Negative-Tr bernie URN.SPECIFIC GRAVITY 1.014 Oct 04, 2024 12:48 PM [facility] CBC BLOOD Specimen Type: BLOOD No comment entered. Ordering Provider: SUKHJINDER GLEZ Report Released Date/Time: Oct 04, 2024 10:09 AM Reporting Lab: [place] [phone] Performing Lab: [address] [address] WBC 8.4 10*3/uL 3.6-11.2 RBC 4.41 10*6/uL [...] 0.00-0. 20 Oct 04, 2024 12:48 PM [facility] HGA1C BLOOD Specimen Type: BLOOD No comment entered. Ordering Provider: SUKHJINDER GLEZ Report Released Date/Time: Oct 04, 2024 10:09 AM Reporting Lab: [address] [phone] Performing Lab: [address] [address] HGA1C 5.4 4.0-6.0 Oct 04, 2024 12:48 PM [facility] TSH W/ REFLEX FT4 (STL) PLASMA Speci men Type: PLASMA No comment entered. Ordering Provider: SUKHJINDER GLEZ Report Released Date/Time: Oct 04, 2024 10:09 AM Reporting Lab: [address] [phone] Performing Lab: [address] [address] TSH 0.351 u[IU]/mL L 0.47-5 Oct 04, 2024 12:48 PM [facility] FREE T4 (STL) PLASMA Specimen Type: PLASMA No comment entered. Ordering Provider: SUKHJINDER GLEZ Report Released Date/Time: Oct 04, 2024 10:09 AM Reporting Lab: [address] [phone] Performing Lab: [address] [address] FREE T4 (STL) 1.02 ng/mL 0.7-1.48 Oct 04, 2024 12:48 PM [facility] TOTAL T3 (STL) PLASMA Specimen Type: PLASMA No comment entered. Ordering Provider: SUKHJINDER GLEZ Report Released Date/Time: Oct 04, 2024 10:09 AM Reporting Lab: [address] [address] Performing Lab: [address] [address] TOTAL T3 (STL) 118.11 ng/dL 58-159 Oct 04, 2024 12:48 PM [facility] VITAMIN D, 25-HYDROXY SERUM Specimen Type: SE RUM Comment: The listed sex of this patient may not be a typical indication for this test. Therefore, reference ranges or interpretive criteria listed may not be valid. Clinical correlation suggested. Ordering Provider: SUKHJINDER GLEZ Report Released Date/Time: Oct 04, 2024 10:09 AM Reporting Lab: [facility] [address] [facility] [phone] Performing Lab: [facility] [address] [facility] [phone] VITAMIN D, 25-HYDROXY 40.1 ng/mL 30-96 Oct 04, 2024 12:48 PM [facility] TEST URINE (MA-STL) URINE Specimen Type: URINE No comment entered. Ordering Provider: SUKHJINDER GLEZ Report Released Date/Time: Oct 04, 2024 10:11 AM Reporting Lab: [facility] [address] [facility] [phone] Performing Lab: [facility] [address] [facility] [phone] Qualitative Test NEG NEGAT BRIANNE Oct 04, 2024 12:48 PM [facility] HCG QUANT SERUM Specimen Type: SERUM Comment: The listed sex of this patient may not be a typical indication for this test. Therefore, reference ranges or interpretive criteria listed may not be valid. Clinical correlation suggested. Ordering Provider: SUKHJINDER GLEZ Report Released Date/Time: Oct 04, 2024 10:11 AM Reporting Lab: [facility] [address] [facility] [facility] [address] Performing Lab: [facility] [address] [facility] [phone] HCG QUANT <1.20 m[IU]/mL 0-5 Oct 04, 2024 12:48 PM [facility] COMPREHENSIVE METABOLIC PANEL PLASMA Specimen Type: PLASMA Comment: No hemolysis noted. Ordering Provider: SUKHJINDER GLEZ Report Released Date/Time: Oct 04, 2024 10:09 AM Reporting Lab: [facility] [address] [facility] [address] Performing Lab: [facility] [address] [facility] [facility] [phone] CREATININE 0.59 mg/dL L 0.6-1.1 UREA NITROGEN [...] U/L 8-40 EGFR (CKD-EPI 2020) 124.3 >60 Vital Signs: All taken on the encounter date This section contains inpatient and outpatient Vital Signs collected on the date of the Encounter. Date/Time Temperature Pulse Blood Pressure Respiratory Rate SP02 Pain Height Weight Body Mass Index Source Oct 18, 2024 09:03 AM 97.5 83 121/85 18 98 0 66 158.8 26 [facility] Social History: Smoking Status (Most current) and Tobacco Use (All prior to encounter date) This section includes the most current, and the historical, smoking and tobacco- related health factors from the [place] facility where the Encounter took place. Current Smoking Status This section includes the most current smoking, or tobacco-related health factor, from the [place] facility where the Encounter took place. Date/Time Current Smoking Status Comment Facil ity Jul 31, 2023 02:36 AM ORYX ADMIT TOBACCO SCREEN YES [facility] Tobacco Use History This section includes a history of the smoking, or tobacco-related health factors, that were collected on or before the date of the Encounter. The data comes from the [place] facility where the Encounter took place. Date/Time Smoking Status/Tobacco Use Comment F acility Jul 31, 2023 02:36 AM ORYX ADMIT TOBACCO USE CIGS GR 5D [facility] Jul 31, 2023 02:36 AM ORYX DAILY TOBACCO [facility] CONSULTANT REFUSED [facility] Jul 31, 2023 02:36 AM ORYX DAILY TOBACCO MEDS REFUSED [facility] Radiology Reports: +/- 30 days of the [...] the Encounter. The data comes from all [place] treatment facilities. Date/Time Radiology Report Provider Source Nov 15, 2024 06:38 AM FLUOROS(SEPARATE PROCEDURE),UP TO 1 HOUR: DAVID PHAN [id number] -[id number] F Exm Date: NOV 15, 2024@06:38 Req Phys: CHARITY ARDON Pat Loc: OP Unknown/11-18-2024@12:32 Img Loc: -MAIN RADIOLOGY SUITE Service: Unknown Screen: Patient answered no [facility] [address] [place] [address] (Case [id number] COMPLETE) FLUOROS(SEPARATE PROCEDURE),UP TO(RAD Detailed) CPT:08039 CPT Modifiers : TC TECHNICAL COMPONENT Reason for Study: venogram Clinical History: Report Status: Verified Date Reported: NOV 18, 2024 Date Verified: NOV 18, 2024 Gas [employer] Checker E-Sig: Report: Fluoroscopy was provided to another [...] Interpreting Staff: SHERLYN TAYLOR, RADIOLOGIST Verified by cable installation manager for SHERLYN TAYLOR /SHERLYN MORFIN [facility] Pathology Reports: +/- 30 days of the [...] the Encounter. The data comes from all [place] treatment facilities. Date/Time Pathology Report Provider Source Oct 04, 2024 12:48 PM LR MICROBIOLOGY RE PORT: Accession [UID]: [id number] [[id number]] Received: Oct 04, 2024@17:34 Collection sample: URINE,CLEAN CATCH Collection date: Oct 04, 2024 12:48 Site/Specimen: URINE Provider: SUKHJINDER GLEZ Test(s) ordered: C&S URINE..................... completed: Oct 06, 2024 13:33 * BACTERIOLOGY FINAL REPORT => Oct 06, 2024 14:23 TECH CODE: [id number] Bacteriology Remark(s): 10/06/24 CULTURE SHOWS NO GROWTH IN 1 DAY. =--=--=--=--=--=--=--=--=--=--=-- =--=--=--=--=--=--=--=--=--=--=-- =--=--=--=-- Performing Laboratory: Bacteriology Report Performed By: [facility] [address] CLIA# [id number] [address] [place] [phone] PAMELA HICKS [facility] Encounter Notes: All associated encounter notes This section contains the clinical notes associated to the Encounter. 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 2020 Per [facility], in 2020, CT scan showed severe dilation of the left renal calyce and pelvis to UPJ. 04/2021 [place] renal lasix scan with no obstruction, L kidney 54%, R 46%. She presented to ED in Jul 2024 with flank pain, nausea, decreased UOP.CT showed moderate left hydro with mild left renal atrophy. Subsequent [place] lasix scan without obstruction and split 50/50 function. Oct 04 UA and UCx negative. 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 Cr 0.6 most recently (from 0.8 at ED visit). She reports that she has continued to have intermittent pain that sometimes is 7/10 and prevents her from going about her day. ROS/PMH Denies F/C/N/V/CP/SOB Remainder of PMH listed below and reviewed? Yes TARGETED PHYSICAL EXAM: Gen: NAD HEENT: NC/AT Resp: NLB Abd: s/nt/nd, no rebound or guarding Back: mild left CVA tenderness Ext: WWP MSK: BIANKA Neuro: non-focal Skin: warm and dry PVR (by scan): deferred CREATININE:CREATININE 0.59 L mg/dL 10/04/2024 12:48 PSA: No PSA EO data found IMAGING: as per above ASSESS MENT AND PLAN ---- 29 yo M with hx of L UPJO s/p pyeloplasty with continued flank pain. Lasix renal scan shows split 50/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 Discussed that given reassuring lasix renal scan, urinary obstruction does not seem to be causing pain. Given CT findings, will further assess nutcracker syndrom with renal doppler for renal vv assessment and referral to vascular surgery. FOLLOW-UP: - Doppler renal US - vascular surgery referral - RTC 3 month for safety visit (MORE INFORMATION) --- * LABS----- PSA Trend: No PSA (LAST 10 5Y) EO data found BMP: SODIUM 137 mEq/L 10/04/2024 12:48 POTASSIUM 4.1 mEq/L 10/04/2024 12:48 CHLORIDE 105 mEq/L 10/04/2024 12:48 UREA NITROGEN 7.5 L mg/dL 10/04/2024 12:48 CREATININE 0.59 L mg/dL 10/04/2024 12:48 CALCIUM 9.0 mg/dL 10/04/2024 12:48 CARBON DIOXIDE 23 mEq/L 10/04/2024 12:48 GLUCOSE 94 mg/dL 10/04/2024 12:48 EGFR (CKD-EPI 2020) 124.3 10/04/2024 12:48 CBC: WBC 8.4 10*3/uL 10/04/2024 12:48 RBC 4.41 [...] 12:48 BASOPHILS, ABSOLUTE 0.05 10*3/uL 10/04/2024 12:48 UA: URINE COLOR Light-Yellow 10/04/2024 12:48 APPEARANCE Clear 10/04/2024 12:48 U.PH 6.5 10/04/2024 12:48 U.BILIRUBIN Negative mg/dL 10/04/2024 12:48 U.NITRITE Negative mg/dL 10/04/2024 12:48 URINE RBC/HPF 1 /HPF 12/11/2023 10:30 URINE WBC/HPF 1 /HPF 12/11/2023 10:30 BACTERIA RARE /HPF 07/30/2023 17:45 SQUAMOUS EPITH. 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 KEEP ON FOR 12 HOURS THEN REMOVE PATCH FOR 12 HOURS. Indication: FOR LOCAL ANESTHESIA 4) METHOCARBAMOL 500MG TAB TAKE 1 TABLET BY MOUTH FOUR TIMES A ACTIVE DAY NEEDED Indication: FOR MUSCLE SPASM 5) SERTRALINE HCL 50MG TAB TAKE ONE TABLET BY MOUTH EVERY ACTIVE MORNING FOR 30 DAYS, THEN TAKE ONE AND ONE-HALF TABLETS EVERY MORNING FOR 60 DAYS Indication: FOR PANIC DISORDER Active Non-VA Medications Status 1) Non-VA BENZONATATE 100MG CAP 100MG BY MOUTH THREE TIMES A ACTIVE DAY NEEDED Indication: FOR COUGH 2) Non-VA DOXYCYCLINE HYCLATE 100MG TAB 100MG BY MOUTH TWICE A ACTIVE DAY Indication: FOR BRONCHITIS 3) Non-VA MOMETASONE FUROATE 220MCG ORAL INHL 60 1 PUFF BY ORAL ACTIVE INHALATION EVERY EVENING Indication: FOR ASTHMA 8 Total Medications Allergies: CEPHALOSPORIN 1ST GENERATION /es/ AMINATA SANCHEZ MD UROLOGY RESIDENT Signed: 10/18/2024 10:12 /es/ CAIO NARAYANAN MD Staff Physician, Urology Cosigned: 10/18/2024 16:09 11/18/2024 ADDENDUM STATUS: COMPLETED Has subsequently had left renal venogram and cavogram by 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 Called PCP reporting new onset incontience over last several days. They are appropriately ordering UA to check for UTI. They asked her to call our team. Attempted to return patient call several times and unable to get through. We have follow up with her in late December. Vasc surg has follow up appt on November 28. /astrid/ AMINATA SANCHEZ MD UROLOGY RESIDENT Signed: 11/18/2024 17:08 /astrid/ CAIO NARAYANAN MD Staff Physician, Urology Cosigned: 11/20/2024 17:04 AMINATA SANCHEZ [facility]
--- OUTSIDE RECORDS SUMMARY | 2024-12-29 19:20 | XMS_ITS | Encounter Summary ---
Author Name [facility] [place] [facility] [place] [facility] [place] Address [address] [place] [address] Care Team Providers Care Mold Swabber Name Role Phone ADELAIDE CERDA Primary Care [...] Sorenson's Name Patient's Relationship to Policy Sorenson [address] Oct 20, 2020 ACTIVE DUTY [id number] [phone] DIONNA PHAN SPOUSE Selected Encounter This section includes the information on record at [place] for the Encounter. Date/Time Encounter Type Encounter Description Reason Provider Source Oct 04, 2024 10:30 AM OFFICE O/P EST HI 40 MIN PRIMARY CARE/MEDICINE ICD-10-CM Z72.0 Tobacco use SHEY GLEZ IHDeepthi Encounter Template Text not used by [facility] Assessments - Encounter Diagnoses This section includes the primary and secondary diagnoses documented for the Encounter. 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[facility]onephrosis [facility] Oct 04, 2024 10:24 AM SECONDARY Embolism and thrombosis of renal vein SHEY GLEZ [facility] Oct 04, 2024 10:24 AM SECONDARY Low back pain, unspecified [facility] Oct 04, 2024 10:24 AM SECONDARY Overweight SHEY GLEZ [facility] Oct 04, 2024 10:24 AM SECONDARY Unspecified [facility]onephrosis [facility] Oct 04, 2024 10:24 AM SECONDARY Vitamin D deficiency, unspecified SHEY GLEZ [facility] Plan of Treatment: Future Appointments (+ 6 months) and Future Tests (+/- 45 days) The Plan of Treatment section includes future care activities for the patient from all [place] treatmentfacilities. This section includes future appointments and future orders which are active, pending or scheduled. Future Appointments This section includes appointments that were scheduled to occur 6 months from the date of the Encounter, up to a maximum of 20 appointments. The data comes from all [place] treatment facilities. Appointment Date/Time Appointment Type Appointme nt Facility Name Oct 18, 2024 09:20 AM AMBULATORY - SURGERY . [facility] Oct 24, 2024 09:00 AM AMBULATORY - NONE [facility] Oct 31, 2024 03:00 PM AMBULATORY - SURGERY [facility] Nov 01, 2024 11:00 AM AMBULATORY - MEDICINE [facility] Nov 15, 2024 06:00 AM AMBULATORY - NONE [facility] Nov 22, 2024 01:30 PM AMBULATORY - NONE . SAAD Neely [facility] Nov 28, 2024 02:00 PM AMBULATORY - SURGERY . Jeanne STRICKLAND [facility] Jan 10, 2025 09:20 AM AMBULATORY - SURGERY . Jeanne STRICKLAND [facility] January 31, 2025 11:00 AM AMBULATORY - MEDICINE [facility] Active, Pending, and Scheduled Orders This section includes a listing of several types of active, pending, and scheduled orders, including clinic medications orders, diagnostic test orders, procedure orders and consult orders; where the start date of the order is 45 days before the date of the Encounter or 45 days after the date of theEncounter. The data comes from all [facility] facilities. Test Date/Time Test Type Test Details Facility Name Nov 15, 2024 06:00 AM Laboratory - Chemi stry Order TEST URINE (MA-STL) URINE YELLOW STAT [facility] Nov 18, 2024 12:00 AM Laboratory - Microbiology Order C&S URINE URINE,CLEAN CATCH [facility] Nov 18, 2024 12:00 AM Laboratory - Chemi stry Order URINALYSIS (STL-PB) URINE [facility] Nov 18, 2024 12:00 AM Laboratory - Chemi stry Order TEST URINE (MA-STL) URINE YELLOW [facility] Lab Results: +/- 30 days of the encounter This section includes the Chemistry and Hematology Lab Results on record with [place] for the patient. Radiology Reports and Pathology Reports are provided separately, in subsequent sections. Lab Results This section contains the Chemistry/Hematology Results that were resulted 30 days before or 30 daysafter the date of the Encounter. Date/Time Source Result Type Result - Unit Interpretation Reference Range Specimen Type Comment Oct 04, 2024 12:48 PM [facility] LIPID PANEL (STL) PLASMA Specimen Type: PLASMA Comment: No hemolysis noted. Ordering Provider: SUKHJINDER GLEZ Report Released Date/Time: Oct 04, 2024 10:09 AM Reporting Lab: [facility] [address] [facility] [phone] Performing Lab: [facility] [address] [address] CHOLESTEROL 181 mg/dL 0-200 TRIGLYCERIDE 85 mg/dL 0-150 CALCULATED LDL 114 mg/dL HDL(New) 50 mg/dL >40 Oct 04, 2024 12:48 PM [facility] URINALYSIS (STL-PB) URINE Specimen Type: URIN E No comment entered. Ordering Provider: SUKHJINDER GLEZ Report Released Date/Time: Oct 04, 2024 10:09 AM Reporting Lab: [place] [phone] Performing Lab: [address] [phone] URINE COLOR Light-Yellow Yellow U.BILIRUBIN Negative mg/dL Negative U.PH 6.5 5.0-8.0 APPEARANCE Clear Clear U.NITRITE Negative mg/dL Negative URN.GLUCOSE Normal mg/dL Negative URN.PROTEIN Negative mg/dL URN.UROBILINOGEN Normal mg/dL Normal URN.BLOOD Negative mg/dL Negative-Trace URN.KETONES Negative mg/dL Negative-Trac e URN.LEUK.EST. Negative mg/dL Negative-Tr bernie URN.SPECIFIC GRAVITY 1.014 Oct 04, 2024 12:48 PM [facility] CBC BLOOD Specimen Type: BLOOD No comment entered. Ordering Provider: SUKHJINDER GLEZ Report Released Date/Time: Oct 04, 2024 10:09 AM Reporting Lab: [address] [address] Performing Lab: [place] [phone] WBC 8.4 10*3/uL 3.6-11.2 RBC 4.41 10*6/uL [...] 0.00-0. 20 Oct 04, 2024 12:48 PM [facility] HGA1C BLOOD Specimen Type: BLOOD No comment entered. Ordering Provider: SUKHJINDER GLEZ Report Released Date/Time: Oct 04, 2024 10:09 AM Reporting Lab: [address] [phone] Performing Lab: [address] [phone] HGA1C 5.4 4.0-6.0 Oct 04, 2024 12:48 PM [facility] TSH W/ REFLEX FT4 (STL) PLASMA Speci men Type: PLASMA No comment entered. Ordering Provider: SUKHJINDER GLEZ Report Released Date/Time: Oct 04, 2024 10:09 AM Reporting Lab: [address] [address] Performing Lab: [address] [phone] TSH 0.351 u[IU]/mL L 0.47-5 Oct 04, 2024 12:48 PM [facility] FREE T4 (STL) PLASMA Specimen Type: PLASMA No comment entered. Ordering Provider: SUKHJINDER GLEZ Report Released Date/Time: Oct 04, 2024 10:09 AM Reporting Lab: [address] [phone] Performing Lab: [address] [phone] FREE T4 (STL) 1.02 ng/mL 0.7-1.48 Oct 04, 2024 12:48 PM [facility] VITAMIN D, 25-HYDROXY SERUM Specimen Type: SE RUM Comment: The listed sex of this patient may not be a typical indication for this test. Therefore, reference ranges or interpretive criteria listed may not be valid. Clinical correlation suggested. Ordering Provider: SUKHJINDER GLEZ Report Released Date/Time: Oct 04, 2024 10:09 AM Reporting Lab: [address] [phone] Performing Lab: [address] [phone] VITAMIN D, 25-HYDROXY 40.1 ng/mL 30-96 Oct 04, 2024 12:48 PM [facility] TOTAL T3 (STL) PLASMA Specimen Type: PLASMA No comment entered. Ordering Provider: SUKHJINDER GLEZ Report Released Date/Time: Oct 04, 2024 10:09 AM Reporting Lab: [address] [phone] Performing Lab: [address] [address] TOTAL T3 (STL) 118.11 ng/dL 58-159 Oct 04, 2024 12:48 PM [facility] TEST URINE (MA-STL) URINE Specimen Type: URINE No comment entered. Ordering Provider: SUKHJINDER GLEZ Report Released Date/Time: Oct 04, 2024 10:11 AM Reporting Lab: [address] [phone] Performing Lab: [address] [phone] Qualitative Test NEG NEGAT BRIANNE Oct 04, 2024 12:48 PM [facility] HCG QUANT SERUM Specimen Type: SERUM Comment: The listed sex of this patient may not be a typical indication for this test. Therefore, reference ranges or interpretive criteria listed may not be valid. Clinical correlation suggested. Ordering Provider: SUKHJINDER GLEZ Report Released Date/Time: Oct 04, 2024 10:11 AM Reporting Lab: [address] [phone] Performing Lab: [facility] [address] [facility] [phone] HCG QUANT <1.20 m[IU]/mL 0-5 Oct 04, 2024 12:48 PM [facility] COMPREHENSIVE METABOLIC PANEL PLASMA Specimen Type: PLASMA Comment: No hemolysis noted. Ordering Provider: SUKHJINDER GLEZ Report Released Date/Time: Oct 04, 2024 10:09 AM Reporting Lab: [facility] [address] [facility] [phone] Performing Lab: [facility] [address] [facility] [phone] CREATININE 0.59 mg/dL L 0.6-1.1 UREA NITROGEN [...] Height Weight Body Mass Index Source Oct 04, 2024 09:43 AM 98.3 74 137/65 20 99 4 158 26 [facility] Social History: Smoking Status (Most current) and Tobacco Use (All prior to encounter date) This section includes the most current, and the historical, smoking and tobacco- related health factors from the [place] facility where the Encounter took place. Current Smoking Status This section includes the most current smoking, or tobacco-related health factor, from the [place] facility where the Encounter took place. Date/Time Current Smoking Status Comment Sophia pollock Oct 04, 2024 10:30 AM [place]-TOBACCO NEVER USED CIGARETTES [facility] Tobacco Use History This section includes a history of the smoking, or tobacco-related health factors, that were collected on or before the date of the Encounter. The data comes from the [place] facility where the Encounter took place. Date/Time Smoking Status/Tobacco Use Comment F acility Oct 04, 2024 10:30 AM [facility]-TOBACCO NEVER USED OTHER TYPE [facility] Dec 22, 2022 01:00 PM VA-TOBACCO DOESNT USE WI 30 MIN WAKEUP [facility] Dec 22, 2022 01:00 PM VA-TOBACCO USE 5 TO 15 YEARS [facility] Dec 22, 2022 01:00 PM VA-TOBACCO USE ADVICE [facility] Dec 22, 2022 01:00 PM VA-TOBACCO USE POST DOCTORAL RESEARCHER NO [facility] Dec 22, 2022 01:00 PM VA-TOBACCO USE MED NO [facility] Dec 22, 2022 01:00 PM VA-TOBACCO USER EVERY DAY [facility] Pathology Reports: +/- 30 days of [...] the Encounter. The data comes from all [place] treatment facilities. Date/Time Pathology Report Provider Source Oct 04, 2024 12:48 PM LR MICROBIOLOGY RE PORT: Accession [UID]: [id number] [[id number]] Received: Oct 04, 2024@17:34 Collection sample: URINE,CLEAN CATCH Collection date: Oct 04, 2024 12:48 Site/Specimen: URINE Provider: SUKHJINDER GLEZ Test(s) ordered: C&S URINE..................... completed: Oct 06, 2024 13:33 * BACTERIOLOGY FINAL REPORT => Oct 06, 2024 14:23 TECH CODE: [id number] Bacteriology Remark(s): PW 10/06/24 CULTURE SHOWS NO GROWTH IN 1 DAY. =--=--=--=--=--=--=--=--=--=--=-- =--=--=--=--=--=--=--=--=--=--=-- =--=--=--=-- Performing Laboratory: Bacteriology Report Performed By: [facility] [address] [facility] CLIA# [id number] [address] [facility] [address] [place] [address] PAMELA HICKS [facility] Encounter Notes: All associated encounter notes This section contains the clinical notes associated to the Encounter. Date/Time Encounter Note(s) Provider Source Oct 07, 2024 10:45 PM PHYSICIAN LETTERS: LOCAL TITLE: TEST RESULT GENERAL LETTER STL STANDARD TITLE: PHYSICIAN LETTERS DATE OF NOTE: OCT 07, 2024@22:45 ENTRY DATE: OCT 07, 2024@22:45:55 AUTHOR: SUKHJINDER GLEZER: URGENCY: STATUS: COMPLETED [address] [address] OCT 07, 2024 LASHELL PHAN [address] [place] [address] Dear Lashell Phan, I would like to update you on your recent test results. LIPID PROFILE - High cholesterol and triglycerides (lipids) are risk factors for heart disease. Your cholesterol should fall between 140 and 200, and your triglycerides levels should be less than or equal to 150. HDL is the good cholesterol and should ideally be greater than 40. LDL is the bad cholesterol and optimal levels should be less than 100 (near optimal is between 100 and 129). TRIGLYCERIDE 85 mg/dL 10/04/2024 12:48 CHOLESTEROL 181 mg/dL 10/04/2024 12:48 HDL(New) 50 mg/dL 10/04/2024 12:48 CALCULATED LDL 114 mg/dL 10/04/2024 12:48 No DIRECT LDL EO data found These readings are within normal limits. GLUCOSE - Your blood sugar or glucose level result GLUCOSE GLUCOSE 94 mg/dL 10/04/2024 12:48 These readings are within normal limits. HEMOGLOBIN A1C - Gives us information about your diabetes (sugar or glucose) control over the past 3 months. Your target is to keep your A1C below 7 %. HGA1C 5.4 % 10/04/2024 12:48 These readings are within normal limits. CBC - A complete blood count (CBC) gives important information about the kinds and numbers of cells in the blood, especially red blood cells, white blood cells, and platelets. HGB 12.8 g/dL 10/04/2024 12:48 HEMATOCRIT 38.7 % (10/04/24 12:48) PLT 291 10*3/uL 10/04/2024 12:48 WHITE BLOOD COUNT 8.4 10*3/uL (10/04/24 12:48) These readings are within normal limits. CHEM 7 - This is important information about the current status of your kidneys, liver, and electrolyte and acid/base balance as well as of your blood sugar and blood proteins. SODIUM 137 mEq/L 10/04/2024 12:48 POTASSIUM 4.1 mEq/L 10/04/2024 12:48 CHLORIDE 105 mEq/L 10/04/2024 12:48 UREA NITROGEN 7.5 L mg/dL 10/04/2024 12:48 CREATININE 0.59 L mg/dL 10/04/2024 12:48 CALCIUM 9.0 mg/dL 10/04/2024 12:48 CARBON DIOXIDE 23 mEq/L 10/04/2024 12:48 GLUCOSE 94 mg/dL 10/04/2024 12:48 EGFR (CKD-EPI 2020) 124.3 10/04/2024 12:48 The results are similar to previous values and not a clinical concern. LIVER FUNCTION PANEL - These are tests for liver function: PROTEIN 7.6 g/dL 10/04/2024 12:48 ALBUMIN 3.9 g/dL 10/04/2024 12:48 TOTAL BILIRUBIN 0.6 mg/dL 10/04/2024 12:48 ALKALINE PHOSPHATASE 73 U/L 10/04/2024 12:48 AST/SGOT 38 H U/L 10/04/2024 12:48 ALT/SGPT 9 U/L 10/04/2024 12:48 The results are similar to previous values and not a clinical concern. TSH - Thyroid-stimulating hormone (also known as TSH or thyrotropin) is a peptide hormone synthesized and secreted by thyrotrope cells in the anterior pituitary gland, which regulates the endocrine function of the thyroid gland. TSH TSH 0.351 L uIU/mL 10/04/2024 12:48 The results are similar to previous values and not a clinical concern. VITAMIN D - Helps promote the proper utilization of calcium and phosphorus, thereby producing proper bone maintenance. VITAMIN D, 25-HYDROXY 40.1 ng/mL 10/04/2024 12:48 These readings are within normal limits. URINALYSIS - A urinalysis (or UA ) is an array of tests performed on urine and one of the most common methods of medical diagnosis. URINALYSIS URINE COLOR Light-Yellow 10/04/2024 12:48 APPEARANCE Clear [...] CA OXYLATE CRYSTALS OCC /HPF 07/30/2023 17:45 These readings are within normal limits. OTHER TEST RESULTS RADIOLOGY (NON-INVASIVE TEST RESULTS): your test was negative. PLAN Please continue your treatment as we discussed during your visit. If you have any questions please call your case operator. I look forward to seeing you at your next clinic appointment. Thank you for choosing the [facility] for your healthcare. FUTURE APPOINTMENTS: 11/01/2024 11:00 [facility] IND 11/22/2024 11:20 [facility] Sincerely, SUKHJINDER GLEZ MD STAFF PHYSICIAN LASHELL PHAN JAMES [facility] Oct 04, 2024 10:04 AM PRIMARY CARE NOTE: LOCAL TITLE: PRIMARY CARE PROVIDER ESTABLISHED VISIT [facility] STANDARD TITLE: PRIMARY CARE NOTE DATE OF NOTE: OCT 04, 2024@10:04 ENTRY DATE: OCT 04, 2024@10:04:35 AUTHOR: SUKHJINDER GLEZ EXP COSIGNER: URGENCY: STATUS: COMPLETED ESTABLISHED PATIENT [id number]: REASON FOR VISIT/CHIEF COMPLAINT: HPI: pt states issues with urinary incontinence. status post vag delivery x 2. no issues w child . had to be induced due to nephrostmy tube. last pap smear was last year. WHAT IS YOUR GOAL FOR TODAY? SOURCE(S) OF HISTORY: Patient PAST MEDICAL HISTORY: 1) Tobacco use comment: 1/2 ppd 2) Liver enzymes level above reference range 3) LBP - Low back pain 4) Cervical pain 5) Thyroid goiter 6) Vitamin D Deficiency (SCT 5297566) 7) UPJ - Ureteropelvic obstruction comment: hydronephrosis left side with re construction 8) Anxiety (SCT [id number]) 9) Overweight 10) Hydronephrosis comment: left ureter w pyelonephritis. 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 SOCIAL HISTORY: NICOTINE:quit 2022 ILLICIT DRUGS:none ALCOHOL:none ALLERGIES: CEPHALOSPORIN 1ST GENERATION ALLERGY REVIEW: Allergy list reviewed and remains current. MEDICATIONS: Active and Recently Outpatient Medications (excluding Supplies): Active Outpatient Medications Status 1) ALPRAZOLAM 0.25MG TAB TAKE ONE TABLET BY MOUTH THREE TIMES A ACTIVE DAY NEEDED Indication: FOR ANXIETY 2) DICLOFENAC NA 75MG EC TAB TAKE ONE TABLET BY MOUTH EVERY ACTIVE MORNING AND EVENING - TAKE WITH FOOD Indication: FOR PAIN 3) EE 0.035MG/NORGESTIMATE TRIPHASIC TAB,28 TAKE 1 TABLET BY ACTIVE MOUTH ONCE A DAY Indication: FOR CONTROL 4) LIDOCAINE 5% PATCH APPLY 1 PATCH TO SKIN SITE ONCE A DAY ACTIVE APPLY PATCH AND PRESS FIRMLY FOR 10-15 SECONDS. KEEP ON FOR 12 HOURS THEN REMOVE PATCH FOR 12 HOURS. Indication: FOR LOCAL ANESTHESIA 5) METHOCARBAMOL 500MG TAB TAKE 1 TABLET BY MOUTH FOUR TIMES A ACTIVE DAY NEEDED Indication: FOR MUSCLE SPASM 6) SERTRALINE HCL 50MG TAB TAKE ONE TABLET [...] ACTIVE INHALATION EVERY EVENING Indication: FOR ASTHMA 9 Total Medications MEDICATION RECONCILIATION: I have reviewed the patient's medication list with the patient and/or his/her care-miller head. Handwritten corrections, additions and/or deletions were made to the list. Corrected Outpatient Medication List was provided to the patient/caregiver. REVIEW OF SYSTEMS: General: Normal Ears, Nose, Mouth, Throat: Normal Eye: Normal Cardiovascular: Normal Respiratory: Normal ABD/GI: Normal Musculoskeletal/Extremities: Normal /SOFTWARE SECURITY ARCHITECT: Normal Hematology & Lymph: Normal Endocrine: Normal Skin: Normal PHYSICAL EXAMINATION: General appearance:nad. thin VITALS (most recent, as listed in the electronic record): Temperature: 98.3 F [36.8 C] (10/04/2024 09:43) BP: 137/65 (10/04/2024 09:43) Pulse: 74 (10/04/2024 09:43) Resp: 20 (10/04/2024 09:43) PulsOx: 99% (10/04/2024 09:43) Pain: 4 (10/04/2024 09:43) Weight: Measurement DT WEIGHT LB(KG)[BMI] 10/04/2024 09:43 158(71.67)[26] 11/10/2023 13:13 159(72.12)[26] Ears, Nose, Mouth, Throat: Normal. Eye: Normal sclera Normal PERRLA Cardiovascular: S1 S2 Nl. Respiratory: Clear ABD/GI: Normal. Extremities: Normal /SOFTWARE SECURITY ARCHITECT: Deferred Hematology & Lymph: Normal Endocrine: Normal Psych: Normal Neuro: Normal. CN 2-12 WNL. Strength 4/4 all ext Reflexes 2+ x 4. Skin: Normal. DATA REVIEW: HGA1C 5.6 % 12/22/2022 14:00 Lipid Panel: TRIGLYCERIDE 66 mg/dL 12/22/2022 14:00 CHOLESTEROL 117 mg/dL 12/22/2022 14:00 HDL(New) 39 L mg/dL 12/22/2022 14:00 CALCULATED LDL 65 mg/dL 12/22/2022 14:00 CMP: SODIUM 138 mEq/L 07/31/2023 06:00 POTASSIUM 3.9 mEq/L 07/31/2023 06:00 CHLORIDE 105 mEq/L 07/31/2023 06:00 UREA NITROGEN 9.7 mg/dL 07/31/2023 06:00 CREATININE 0.82 mg/dL 07/31/2023 06:00 CALCIUM 9.0 mg/dL 07/31/2023 06:00 PROTEIN 7.8 g/dL 07/30/2023 17:45 ALBUMIN 4.5 g/dL 07/30/2023 17:45 ALKALINE PHOSPHATASE 82 U/L 07/30/2023 17:45 ALT/SGPT 15 U/L 07/30/2023 17:45 AST/SGOT 17 U/L 07/30/2023 17:45 TOTAL BILIRUBIN 0.5 mg/dL 07/30/2023 17:45 CARBON DIOXIDE 25 mEq/L 07/31/2023 06:00 GLUCOSE 95 mg/dL 07/31/2023 06:00 EGFR (CKD-EPI 2020) 99.2 07/31/2023 06:00 CBC: WBC 6.4 10*3/uL 07/31/2023 06:00 RBC 4.34 10*6/uL 07/31/2023 06:00 HGB 12.8 g/dL 07/31/2023 06:00 HCT 38.8 % 07/31/2023 06:00 MCV 89.4 fL 07/31/2023 06:00 MCH 29.5 pg 07/31/2023 06:00 MCHC 33.0 g/dL 07/31/2023 06:00 RDW 12.8 % 07/31/2023 06:00 PLT 238 10*3/uL 07/31/2023 06:00 MPV 10.3 fL 07/31/2023 06:00 NEUTROPHILS, AUTO % 43 % 07/31/2023 06:00 LYMPHOCYTES, AUTO % 48 % 07/31/2023 06:00 MONOCYTES, AUTO % 6 % 07/31/2023 06:00 EOSINOPHILS, AUTO % 3 % 07/31/2023 06:00 BASOPHILS, AUTO % 1 % 07/31/2023 06:00 NEUTROPHILS, ABSOLUTE 2.71 10*3/uL 07/31/2023 06:00 LYMPHOCYTES, ABSOLUTE 3.02 10*3/uL 07/31/2023 06:00 MONOCYTES, ABSOLUTE 0.38 10*3/uL 07/31/2023 06:00 EOSINOPHILS, ABSOLUTE 0.18 10*3/uL 07/31/2023 06:00 BASOPHILS, ABSOLUTE 0.04 10*3/uL 07/31/2023 06:00 No PSA (LAST 10 5Y) EO data found TSH: No TSH (1YR) EO data found VITAMIN D, 25-HYDROXY 18.9 L ng/mL 12/22/2022 14:00 INR: No INR EO data found UA: URINE COLOR Light-Yellow 12/11/2023 10:30 APPEARANCE Clear 12/11/2023 10:30 U.PH 6.5 12/11/2023 10:30 U.BILIRUBIN Negative mg/dL 12/11/2023 10:30 U.NITRITE Negative mg/dL 12/11/2023 10:30 URINE RBC/HPF 1 /HPF 12/11/2023 10:30 URINE WBC/HPF 1 /HPF 12/11/2023 10:30 BACTERIA RARE /HPF 07/30/2023 17:45 SQUAMOUS EPITH. <1 /HPF 12/11/2023 10:30 MUCUS RARE /LPF 12/11/2023 10:30 HYALINE CASTS 1 /LPF 07/30/2023 17:45 CA OXYLATE CRYSTALS OCC /HPF 07/30/2023 17:45 IM - IMMUNIZATIONS ADMINISTERED Immunization Series Date Facility Reaction Info INFLUENZA, UNSPECIFIED FORMULATI* 08/17/2023 Home CONTRAINDICATED No data available REFUSED ======= Immunization Date Facility Info PNEUMOCOCCAL CONJUGATE, UNSPECIF* 11/10/2023 [facility] <I> PNEUMOCOCCAL CONJUGATE, UNSPECIF* 12/22/2022 [facility] <I> TDAP 11/10/2023 [facility]* <I> TDAP 08/17/2023 [facility]* <I> TDAP 12/22/2022 [facility]* <I> <I> See the Detailed Immunizations Health Summary Component[DIM] for Additional Information * Value is truncated; see the Detailed Immunizations Health Summary Component[DIM] for complete text ST - SKIN TESTS No data available Result: Acceptable Follow-up Action: Re check prior to next visit. Data results reviewed with patient and/or caregiver. ASSESSMENT/PLAN: 1. urinary incontinence. refer to urology and gynecology. 2. sciatica reviewed films w pt. 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 pt declines to gain wt. 4. low back pain: etiology of back pain, treatment options and shared decision making were discussed with patient. Continue current therapy. Notify us for any changes, fever, weight loss, saddle anesthesia or loss of bowel or bladder. 5. vit d def re check 6. tobacco use quit congratulated. 7. anxiety cct 8. Depression: patient counseled regarding depression. Patient denies any suicidal or homicical ideations. Medication use, risks, side effects were discussed. Shared decision making occurred. RETURN TO CLINIC: SUMMARY STATEMENT: Plan of care has been discussed with including expected therapeutic benefits and potential side effects of prescribed medication and treatments. verbalizes understanding and is in agreement with the plan of care. Patient was instructed to keep all scheduled appointments and contact stainless steel finisher for any additional problems. PREVENTION & SCREENING: ALCOHOL: Clinical Reminder not due now or within a month COLORECTAL CANCER: Clinical Reminder not due now or within a month BLOOD PRESSURE: Clinical Reminder not due now or within a month HEMOGLOBIN A1C: Clinical Reminder not due now or within a month Sexual Orientation - CP,L,N,P,PH,PS,S,U: The patient thinks of their sexual orientation as: Straight or Heterosexual Screen for Embedded Fragments - L,N,P,S,U: SCREEN FOR EMBEDDED FRAGMENTS The patient reports no embedded fragments. COVID-19 Immunization - L,N,P,PH,U: Refused Moderna Monovalent COVID-19 vaccine Immunization: COVID-19 (MODERNA), MRNA, LNP-S, PF, 50 MCG/0.5 ML (AGES 12+ YEARS) Refusal Reason: PATIENT DECISION Patient refuses all immunization(s) in the COVID-19 group Date Documented: 10/04/24 10:22 Influenza Immunization - L,N,P,PH,U: Deferral / Refusal The patient declines to receive the recommended dose of seasonal influenza vaccine. Immunization: INFLUENZA, UNSPECIFIED FORMULATION Refusal Reason: PATIENT DECISION Patient refuses all immunization(s) in the FLU group Date Documented: 10/04/24 10:22 Tobacco Use Screening - AT,DE,L,M,N,P,PH,PS,RT,S,U: The patient has never smoked cigarettes. The patient has never used other types of tobacco. Pneumococcal Conjugate Vaccine (PCV15/PCV20) - L,N,P,PH,U: Refuses PCV vaccine Immunization: PNEUMOCOCCAL CONJUGATE, UNSPECIFIED FORMULATION Refusal Reason: PATIENT DECISION Patient refuses all immunization(s) in the PneumoPCV group Date Documented: 10/04/24 10:22 /Intentions/Contrac eption - DI,L,N,P,PH,S,U: The patient is medically able to conceive. The patient states that they are not . Action following medication review: Patient's provider notified of medications that are known/potential teratogens. Name of Provider notified: selina The patient does not desire within the next year. The patient is using either a contraceptive pill, ring or patch to prevent . /astrid/ SUKHJINDER GLEZ MD STAFF PHYSICIAN Signed: 10/04/2024 10:24 SUKHJINDER GLEZ [facility] Oct 04, 2024 09:47 AM NURSING NOTE: LOCAL TITLE: V15 PACT FACE TO FACE NOTE STL STANDARD TITLE: NURSING NOTE DATE OF NOTE: OCT 04, 2024@09:47 ENTRY DATE: OCT 04, 2024@09:47:26 AUTHOR: ANABEL NAVARRO COSIGNER: URGENCY: STATUS: COMPLETED Provider Visit: Patient Identifiers : Full Name Date of Reason for visit: Established Follow-Up Mode of Arrival: Ambulatory Allergy Review: CEPHALOSPORIN 1ST GENERATION Allergy list reviewed and remains current. Recent Vital Signs: Temperature: 98.3 F [36.8 C] (10/04/2024 09:43) Pulse: 74 (10/04/2024 09:43) Respiration: 20 (10/04/2024 09:43) B/P: 137/65 (10/04/2024 09:43) Pain: 4 (10/04/2024 09:43) Wt: 158 lb [71.67 kg] (10/04/2024 09:43) Ht: 66 in [167.6 cm] (11/10/2023 13:13) BMI: 25.6 POX: 99% (10/04/2024 09:43) PERSONAL HEALTH INVENTORY Notes: No data available for PHI note titles PERSONAL HEALTH INVENTORY - MAP: 07/11/2023 Personal Health Plan Whitman, Aspiration, Purpose (MAP) family 12/22/2022 Personal Health Plan Whitman, Aspiration, Purpose (MAP) family What matters most to you in your life right now? - 's Response: my family Would you like to discuss any personal problem, family problem, alcohol use, drug use, or a mental or emotional illness? No [facility] ([facility]), please select appointment type: Face to face: Yes- Done Contact provided Primary Care phone number and encouraged to call if any questions or concerns. Review that after hours nurse line [phone] and emergency room are available 10/04 for patient use. Contact verbalized good understanding. No notification required for this note. Alcohol Use Screen (AUDIT-C) - V: Alcohol Screen: SCREEN FOR ALCOHOL (AUDIT-C) An alcohol screening test (AUDIT-C) was negative (score=0). 1. How often did you have a drink containing alcohol in the past year? Consider a drink to be a 12 ounce can or bottle of regular beer, 8 ounces of malt liquor, a 5 ounce glass of table wine, or a 1.5 ounce shot of liquor (like scotch, gin, or vodka). Never 2. How many drinks containing alcohol did you have on a typical day when you were drinking in the past year? Response not required due to responses to other questions. 3. How often did you have 4 or more drinks on one occasion in the past year? Response not required due to responses to other questions. Depression Screening - V: Perform PHQ-2 A PHQ-2 screen was performed. The score was 0 which is a negative screen for depression. Over the past two weeks, how often have you been bothered by the following problems? 1. Little interest or pleasure in doing things Not at all 2. Feeling down, depressed, or hopeless Not at all Homelessness/Food Insecurity Screen - DI,L,N,P,PH,PS,S,U: In the past 2 months, have you been living in stable housing that you own, rent, or stay in as part of a household? Yes - Living in stable housing. Are you worried or concerned that in the next 2 months you may NOT have stable housing that you own, rent, or stay in as part of a household? No - Not worried about housing near future [facility] [place] reports the following: Within the past 12 months, you worried whether your food would run out before you got money to buy more. Never true Within the past 12 months, the food you bought just didn't last and you didn't have money to get more. Never true Learning Assessment: - * This patient's learning ABILITIES, BARRIERS to learning, CULTURAL and MANDAEN beliefs, and learning PREFERENCES were assessed. Following are findings of note: Patient reads well. 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 LANGUAGE Patient reports that Japanese is preferred language for healthcare. Patient has the following vision barrier(s) to consider when teaching: No vision barrier has been identified. Patient reports learning preference is to refer to handouts. Patient reports learning preference is attending one-to-one or group demonstrations. Patient reports learning preference is looking at pictures or viewing videos. /astrid/ ANABEL NAVARRO Licensed Practical Nurse Signed: 10/04/2024 09:50 ANABEL NAVARRO [facility]
--- OUTSIDE RECORDS SUMMARY | 2024-12-29 19:20 | XMS_ITS | Encounter Summary ---
Author Name [facility] [place] [facility] [place] Address [address] [place] [address] Care Team Providers Care Pharmaceutical Service Representative Name Role Phone ADELAIDE CERDA Primary Care [...] Sorenson's Name Patient's Relationship to Policy Sorenson [address] Oct 20, 2020 ACT[employer]UTY [id number] [phone] DIONNA PHAN SPOUSE Selected Encounter This section includes the information on record at [place] for the Encounter. Date/Time Encounter Type Encounter Description Reason Pro vider Source Sep 06, 2024 03:15 PM Outpatient Encounter [facility] Encounter Template Text not used by [facility] Plan of Treatment: Future Appointments (+ 6 months) and Future Tests (+/- 45 days) The Plan of Treatment section includes future care activities for the patient from all [place] [facility]. This section includes future appointments and future orders which are active, pending or scheduled. Future Appointments This section includes appointments that were scheduled to occur 6 months from the date of the Encounter, up to a maximum of 20 appointments. The data comes from all [facility]. Appointment Date/Time Appointment Type Appointme nt Facility Name Sep 25, 2024 05:00 PM AMBULATORY - NONE [facility] Oct 04, 2024 10:30 AM AMBULATORY - MEDICINE [facility] Oct 18, 2024 09:20 AM AMBULATORY - SURGERY [facility] Oct 24, 2024 09:00 AM AMBULATORY - NONE [facility] Oct 31, 2024 03:00 PM AMBULATORY - SURGERY . [facility] Nov 01, 2024 11:00 AM AMBULATORY - MEDICINE [facility] Nov 15, 2024 06:00 AM AMBULATORY - NONE . [facility] Nov 22, 2024 01:30 PM AMBULATORY - NONE [facility] Nov 28, 2024 02:00 PM AMBULATORY - SURGERY [facility] Jan 10, 2025 09:20 AM AMBULATORY - SURGERY [facility] January 31, 2025 11:00 AM AMBULATORY - MEDICINE [facility] Active, Pending, and Scheduled Orders This section includes a listing of several types of active, pending, and scheduled orders, including clinic medications orders, diagnostic test orders, procedure orders and consult orders; where the start date of the order is 45 days before the date of the Encounter or 45 days after the date of theEncounter. The data comes from all [facility]. Test Date/Time Test Type Test Details Facility Name Aug 19, 2024 12:00 AM Laboratory - Chemi stry Order HCG QUANT GOLD/RED SST SERUM [facility] Aug 19, 2024 12:00 AM Laboratory - Chemi stry Order TEST URINE (MA-STL) URINE YELLOW [facility] Lab Results: +/- 30 days of the encounter This section includes the Chemistry and Hematology Lab Results on record with [place] for the patient. Radiology Reports and Pathology Reports are provided separately, in subsequent sections. Lab Results This section contains the Chemistry/Hematology Results that were resulted 30 days before or 30 daysafter the date of the Encounter. Date/Time Source Result Type Result - Unit Interpretation Reference Range Specimen Type Comment Oct 04, 2024 12:48 PM [facility] LIPID PANEL (STL) PLASMA Specimen Type: PLASMA Comment: No hemolysis noted. Ordering Provider: SUKHJINDER ZAMORA Report Released Date/Time: Oct 04, 2024 10:09 AM Reporting Lab: [facility] [address] [place] [phone] Performing Lab: [address] [phone] CHOLESTEROL 181 mg/dL 0-200 TRIGLYCERIDE 85 mg/dL 0-150 CALCULATED LDL 114 mg/dL HDL(New) 50 mg/dL >40 Oct 04, 2024 12:48 PM [facility] URINALYSIS (STL-PB) URINE Specimen Type: URIN E No comment entered. Ordering Provider: SUKHJINDER ZAMORA Report Released Date/Time: Oct 04, 2024 10:09 AM Reporting Lab: [facility] [address] [place] [phone] Performing Lab: [address] [address] URINE COLOR Light-Yellow Yellow U.BILIRUBIN Negative mg/dL Negative U.PH 6.5 5.0-8.0 APPEARANCE Clear Clear U.NITRITE Negative mg/dL Negative URN.GLUCOSE Normal mg/dL Negative URN.PROTEIN Negative mg/dL URN.UROBILINOGEN Normal mg/dL Normal URN.BLOOD Negative mg/dL Negative-Trace URN.KETONES Negative mg/dL Negative-Trac e URN.LEUK.EST. Negative mg/dL Negative-Tr bernie URN.SPECIFIC GRAVITY 1.014 Oct 04, 2024 12:48 PM [facility] CBC BLOOD Specimen Type: BLOOD No comment entered. Ordering Provider: SUKHJINDER ZAMORA Report Released Date/Time: Oct 04, 2024 10:09 AM Reporting Lab: [facility] [address] [place] [phone] Performing Lab: [address] [address] WBC 8.4 10*3/uL 3.6-11.2 RBC 4.41 10*6/uL [...] 0.00-0. 20 Oct 04, 2024 12:48 PM [facility] HGA1C BLOOD Specimen Type: BLOOD No comment entered. Ordering Provider: SUKHJINDER ZAMORA Report Released Date/Time: Oct 04, 2024 10:09 AM Reporting Lab: [address] [phone] Performing Lab: [address] [address] HGA1C 5.4 4.0-6.0 Oct 04, 2024 12:48 PM [facility] FREE T4 (STL) PLASMA Specimen Type: PLASMA No comment entered. Ordering Provider: SUKHJINDER ZAMORA Report Released Date/Time: Oct 04, 2024 10:09 AM Reporting Lab: [address] [phone] Performing Lab: [address] [address] FREE T4 (STL) 1.02 ng/mL 0.7-1.48 Oct 04, 2024 12:48 PM [facility] TSH W/ REFLEX FT4 (STL) PLASMA Speci men Type: PLASMA No comment entered. Ordering Provider: SUKHJINDER ZAMORA Report Released Date/Time: Oct 04, 2024 10:09 AM Reporting Lab: [facility] [address] [place] [address] Performing Lab: [facility] [address] [place] [address] TSH 0.351 u[IU]/mL L 0.47-5 Oct 04, 2024 12:48 PM [facility] TOTAL T3 (STL) PLASMA Specimen Type: PLASMA No comment entered. Ordering Provider: SUKHJINDER ZAMORA Report Released Date/Time: Oct 04, 2024 10:09 AM Reporting Lab: [place] [address] [place] [address] Performing Lab: [place] [address] [address] TOTAL T3 (STL) 118.11 ng/dL 58-159 Oct 04, 2024 12:48 PM [facility] VITAMIN D, 25-HYDROXY SERUM Specimen Type: SE RUM Comment: The listed sex of this patient may not be a typical indication for this test. Therefore, reference ranges or interpretive criteria listed may not be valid. Clinical correlation suggested. Ordering Provider: SUKHJINDER ZAMORA Report Released Date/Time: Oct 04, 2024 10:09 AM Reporting Lab: [facility] [address] [place] [address] Performing Lab: [address] [address] VITAMIN D, 25-HYDROXY 40.1 ng/mL 30-96 Oct 04, 2024 12:48 PM [facility] TEST URINE (MA-STL) URINE Specimen Type: URINE No comment entered. Ordering Provider: SUKHJINDER ZAMORA Report Released Date/Time: Oct 04, 2024 10:11 AM Reporting Lab: [facility] [place] [address] [address] Performing Lab: [address] [address] Qualitative Test NEG NEGAT BRIANNE Oct 04, 2024 12:48 PM [facility] HCG QUANT SERUM Specimen Type: SERUM Comment: The listed sex of this patient may not be a typical indication for this test. Therefore, reference ranges or interpretive criteria listed may not be valid. Clinical correlation suggested. Ordering Provider: SUKHJINDER ZAMORA Report Released Date/Time: Oct 04, 2024 10:11 AM Reporting Lab: [address] [phone] Performing Lab: [address] [address] HCG QUANT <1.20 m[IU]/mL 0-5 Oct 04, 2024 12:48 PM [facility] COMPREHENSIVE METABOLIC PANEL PLASMA Specimen Type: PLASMA Comment: No hemolysis noted. Ordering Provider: SUKHJINDER ZAMORA Report Released Date/Time: Oct 04, 2024 10:09 AM Reporting Lab: [address] [address] Performing Lab: [address] [address] CREATININE 0.59 mg/dL L 0.6-1.1 UREA NITROGEN [...] and tobacco- related health factors from the [place] facility where the Encounter took place. Current Smoking Status This section includes the most current smoking, or tobacco-related health factor, from the [place] facility where the Encounter took place. Date/Time Current Smoking Status Comment Facil ity Dec 22, 2022 01:00 PM VA-TOBACCO USE ADVICE [facility] Tobacco Use History This section includes a history of the smoking, or tobacco-related health factors, that were collected on or before the date of the Encounter. The data comes from the [place] facility where the Encounter took place. Date/Time Smoking Status/Tobacco Use Comment F acility Dec 22, 2022 01:00 PM VA-TOBACCO USE 5 TO 15 YEARS [facility] Dec 22, 2022 01:00 PM VA-TOBACCO USE ADVICE [facility] Dec 22, 2022 01:00 PM VA-TOBACCO USE HEAD OF TRANSPORT LOGISTICS NO [facility] Dec 22, 2022 01:00 PM VA-TOBACCO USE MED NO [facility] Dec 22, 2022 01:00 PM VA-TOBACCO USER EVERY DAY [facility] Pathology Reports: +/- 30 days of the [...] the Encounter. The data comes from all [place] treatment facilities. Date/Time Pathology Report Provider Source Oct 04, 2024 12:48 PM LR MICROBIOLOGY RE PORT: Accession [UID]: [id number] [[id number]] Received: Oct 04, 2024@17:34 Collection sample: URINE,CLEAN CATCH Collection date: Oct 04, 2024 12:48 Site/Specimen: URINE Provider: SUKHJINDER ZAMORA Test(s) ordered: C&S URINE..................... completed: Oct 06, 2024 13:33 * BACTERIOLOGY FINAL REPORT => Oct 06, 2024 14:23 TECH CODE: [id number] Bacteriology Remark(s): PW 10/06/24 CULTURE SHOWS NO GROWTH IN 1 DAY. =--=--=--=--=--=--=--=--=--=--=-- =--=--=--=--=--=--=--=--=--=--=-- =--=--=--=-- Performing Laboratory: Bacteriology Report Performed By: [facility] CLIA# [id number] [facility] [address] [place] [address] PAMELA HICKS [facility] Encounter Notes: All associated encounter notes This section contains the clinical notes associated to the Encounter. Date/Time Encounter Note(s) Provider Source Sep 06, 2024 03:40 PM ACCOUNTING OF DISC LOSURES NOTE: LOCAL TITLE: STATE PRESCRIPTION DRUG MONITORING PROGRAM STANDARD TITLE: ACCOUNTING OF DISCLOSURES NOTE DATE OF NOTE: SEP 06, 2024@15:40:08 ENTRY DATE: SEP 06, 2024@15:40:08 AUTHOR: SUKHJINDER ZAMORA EXP COSIGNER: URGENCY: STATUS: COMPLETED This PDMP query was submitted by Sukhjinder Zamora MD. The clinical justification for this PDMP query is to review controlled substances prescribed outside of the [facility], and any additional information that may become available, as an important component of standard clinical care, and in accordance with [facility] policy. Patient information was shared with the PDMP [employer] [place]. No prescription(s) for controlled substances outside the [facility] were found in the last 90 days. /astrid/ SUKHJINDER ZAMORA MD STAFF PHYSICIAN Signed: 09/06/2024 15:40 SUKHJINDER ZAMORA [facility]
--- OUTSIDE RECORDS SUMMARY | 2024-12-29 19:20 | XMS_ITS | Encounter Summary ---
Author Name [facility] [place] Address [address] [place] [address] Care Team Providers Care Senior Windows Systems Administrator Name Role Phone ADELAIDE CERDA Primary Care Provider Unavailabl NAIMA Schaefer Primary Care Provider Unavailab SUKHJINDER Blas Primary Care Provider Unavailab le Insurance Providers: All historical and current Section Date Range: From patient's date of to the date document was created. This section includes the names of all active insurance providers for the patient. Insurance Provider Type of Coverage Plan Name Start of Policy Coverage End of Policy Coverage Group Number Member ID Insurance Provider's Telephone Number Policy Sorenson's Name Patient's Relationship to Policy Sorenson [facility] 2018 [facility] Oct 20, 2020 ACTIVE DUTY [id number] [phone] DIONNA PHAN SPOUSE Selected Encounter This section includes the information on record at [place] for the Encounter. Date/Time Encounter Type Encounter Description Reason Provider Source Nov 15, 2024 09:37 AM Outpatient Encounter ADMIN PAT ACTIVTIES (MASNONCT) DON ANNE E Encounter Template Text not used by [place] Plan of Treatment: Future Appointments (+ 6 months) and Future Tests (+/- 45 days) The Plan of Treatment section includes future care activities for the patient from [facility] [place] [facility] This section includes future appointments and future orders which are active, pending or scheduled. Future Appointments This section includes appointments that were scheduled to occur 6 months from the date of the Encounter, up to a maximum of 20 appointments. The data comes from all [facility]. Appointment Date/Time Appointment Type Appointme nt Facility Name Nov 22, 2024 01:30 PM AMBULATORY - NONE [facility] Nov 28, 2024 02:00 PM AMBULATORY - SURGERY [facility] Jan 10, 2025 09:20 AM AMBULATORY - SURGERY [facility] January 31, 2025 11:00 AM AMBULATORY - MEDICINE [facility] Active, Pending, and Scheduled Orders This section includes a listing of several types of active, pending, and scheduled orders, including clinic medications orders, diagnostic test orders, procedure orders and consult orders; where the start date of the order is 45 days before the date of the Encounter or 45 days after the date of theEncounter. The data comes from all [facility]. Test Date/Time Test Type Test Details Facility Name Nov 15, 2024 06:00 AM Laboratory - Chemi stry Order TEST URINE (MA-STL) URINE YELLOW STAT [facility] Nov 18, 2024 12:00 AM Laboratory - Microbiology Order C&S URINE URINE,CLEAN CATCH [facility] Nov 18, 2024 12:00 AM Laboratory - Chemi stry Order URINALYSIS (STL-PB) URINE [facility] Nov 18, 2024 12:00 AM Laboratory - Chemi stry Order TEST URINE (MA-STL) URINE YELLOW [facility] Lab Results: +/- 30 days of the encounter This section includes the Chemistry and Hematology Lab Results on record with [place] for the patient. Radiology Reports and Pathology Reports are provided separately, in subsequent sections. Lab Results This section contains the Chemistry/Hematology Results that were resulted 30 days before or 30 daysafter the date of the Encounter. Date/Time Source Result Type Result - Unit Interpretation Reference Range Specimen Type Comment Nov 22, 2024 01:16 PM [facility] I-STAT, CREAT (STL-MA) BLOOD Specimen Type: BLOOD Comment: Test Performed by: [id number] Meter #: [id number] Ordering Provider: SUKHJINDER GLEZ Report Released Date/Time: Nov 22, 2024 03:22 PM Reporting Lab: [facility] [address] [facility] [address] Performing Lab: [facility] [address] [facility] [address] I-STAT, CREAT (STL-MA) 0.8 mg/dL 0.7-1.3 Nov 15, 2024 06:20 AM [facility] POC CLINITEST HCG URINE Specimen Type: URINE Comment: Test Performed by: [id number] Meter #: [id number] Ordering Provider: KWESI GONZALES Report Released Date/Time: Nov 15, 2024 06:26 AM Reporting Lab: [place] [id number] [facility] [address] Performing Lab: [place] [address] [facility] [address] POC CLINITEST HCG Negative Negative Vital Signs: All taken on the encounter date This section contains inpatient and outpatient Vital Signs collected on the date of the Encounter. Date/Time Temperature Pulse Blood Pressure Respiratory Rate SP02 Pain Height Weight Body Mass Index Source Nov 15, 2024 10:00 AM 98 82 114/81 19 100 0 [facility] Nov 15, 2024 07:00 AM 98.1 60 111/74 16 100 6 66 157.2 25 [facility] Social History: Smoking Status (Most current) and Tobacco Use (All prior to encounter date) This section includes the most current, and the historical, smoking and tobacco- related health factors from the [place] facility where the Encounter took place. Current Smoking Status This section includes the most current smoking, or tobacco-related health factor, from the [place] facility where the Encounter took place. Date/Time Current Smoking Status Comment Sophia pollock Jul 31, 2023 02:36 AM ORYX ADMIT TOBACCO SCREEN YES [facility] Tobacco Use History This section includes a history of the smoking, or tobacco-related health factors, that were collected on or before the date of the Encounter. The data comes from the [place] facility where the Encounter took place. Date/Time Smoking Status/Tobacco Use Comment F acility Jul 31, 2023 02:36 AM ORYX ADMIT TOBACCO USE CIGS GR 5D [facility] Jul 31, 2023 02:36 AM ORYX DAILY TOBACCO FURNACE PUNCHER REFUSED [facility] Jul 31, 2023 02:36 AM ORYX DAILY TOBACCO MEDS REFUSED [facility] Radiology Reports: +/- 30 days of the [...] the Encounter. The data comes from all [place] treatment facilities. Date/Time Radiology Report Provider Source Nov 22, 2024 01:[address] ABD PEL W/CONT & 3D: DAVID PHAN [id number] -1995 F Exm Date: NOV 22, 2024@13:04 Req Phys: POLLY TAMAYO Loc: [place]-VASCULAR SURG II (Req'g Loc Img Loc: [place]-CT IMAGING [place] Service: Unknown Screen: Patient answered no [facility] [address] [place] [address] (Case [id number] COMPLETE) CT ABDOMEN AND PELVIS W/CONTRAST (CT Detailed) CPT:68709 Contrast Media : Non-ionic Iodinated Reason for Study: please perform CT venogram Clinical History: Responsible Attending: Kwesi gonzales Attending Contact Number: vascular surgery II 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 CREATININE 0.59 mg/dL L (01/17/25 12:48) Wt: 162.1 lb [73.53 kg] (10/31/2024 15:16) History of: Renal failure, chronic or acute renal disease: NO Report Status: Verified Date Reported: NOV 25, 2024 Date Verified: NOV 25, 2024 Diplomatic Officer E-Sig:/ES/SHEELA NOBLE MD Report: Spiral axial imaging [...] Primary Interpreting Staff: SHEELA NOBLE MD, Radiologist (Diplomatic Officer) /[facility] SHEELA NOBLE [facility] Nov 15, 2024 06:38 AM FLUOROS(SEPARATE PROCEDURE),UP TO 1 HOUR: SYLVESTERDAVID [id number] -[id number] F Exm Date: NOV 15, 2024@06:38 Req Phys: KWESI GONZALES Pat Loc: OP Unknown/11-18-2024@12:32 Img Loc: [place]-MAIN RADIOLOGY SUITE Service: Unknown Screen: Patient answered no [facility] [address] [place] [address] (Case [id number] COMPLETE) FLUOROS(SEPARATE PROCEDURE),UP TO(RAD Detailed) CPT:74841 CPT Modifiers : TC TECHNICAL COMPONENT Reason for Study: venogram Clinical History: Report Status: Verified Date Reported: NOV 18, 2024 Date Verified: NOV 18, 2024 Diplomatic Officer E-Sig: Report: Fluoroscopy was provided to another [...] Interpreting Staff: SHERLYN TAYLOR, RADIOLOGIST Verified by accounts administrator for SHERLYN TAYLOR /ANDREW TAYLOR,[facility]N [facility] Encounter Notes: All associated encounter notes This section contains the clinical notes associated to the Encounter. Date/Time Encounter Note(s) Provider Source Nov 15, 2024 09:37 AM ANESTHESIOLOGY CANDIDA WSHEET: LOCAL TITLE: ANES INTRA-OP FLOWSHEET STL STANDARD TITLE: ANESTHESIOLOGY FLOWSHEET DATE OF NOTE: NOV 15, 2024@09:37 ENTRY DATE: NOV 15, 2024@09:37:15 AUTHOR: DON ANNE COSIGNER: URGENCY: STATUS: COMPLETED Patient: DAVID PHAN SSN: [id number] Date of Operation: 11/15/2024 Surgery Start Time: 11/15/2024 8:01 Surgery End Time: 11/15/2024 9:21 Anesthesia Care Start: 11/15/2024 7:23 Anesthesia Care End: 11/15/2024 9:35 Anesthesia Method: Monitored 11/15/2024 7:49 (Primary), Level Of Consciousness: Sedated, Monitors Applied, Oxygen Therapy: Mask, EtCO2 Verified: Waveform Positioning: Head Neutral, Head And Neck In Alignment With Spine, Pressure Points Padded & Checked, Eyes, Ears And Nose Free Of Pressure ASA Number: 1 Procedure: left renal venogram Diagnosis: left flank pain Holding, Anesthesia, PACU Drugs: -------- Midazolam: 2 mg FentaNYL: 100 mcg Lidocaine: 100 mg Propofol: 90 mg Propofol gtt: 118.449 mg Clindamycin: 900 mg Dexamethasone: 8 mg Ondansetron: 4 mg Glycopyrrolate: 0.3 mg Holding, Anesthesia, PACU Fluids: --------- Ringers Lactated Solution: 500 ml Resources: Aquacel foam placed on adolph prominence to protect skin during surgery Safety Belt Staff: --------- KWESI GONZALES, SURGEON KWESI GONZALES, ATT. SURGEON RINKU SOMMER, Holding Nurse RINKU SOMMER, Holding Nurse SHAZIA MOORE ANES. SUPER. DON ANNE PRIN. ANES. Procedure Date: 11/15/2024 Procedure Start Time: Procedure End Time: /astrid/ Dno Anne CRNA LINE DEPARTMENT SUPERVISOR Signed: 11/15/2024 09:37 DON ANNE [facility]
--- OUTSIDE RECORDS SUMMARY | 2024-12-29 19:21 | XMS_ITS | Encounter Summary ---
Author Name [facility] [place] Organization [facility] [place] Address [address] [place] [id number] Care Team Providers Care Coin Purse Framer Name Role Phone ADELAIDE CERDA Primary Care [...] Sorenson's Name Patient's Relationship to Policy Sorenson [facility] 2017 [facility] Oct 20, 2020 ACTIVE DUTY [id number] [phone] DIONNA PHAN SPOUSE Selected Encounter This section includes the information on record at [place] for the Encounter. Date/Time Encounter Type Encounter Description Reason Provider Source Sep 25, 2024 05:00 PM SYNCH AUDIO-VIDEO EST SF 10 GENERAL INTERNAL MEDICINE ICD-10-CM N39.498 Other specified urinary incontinence VOLODYMYR RITTER IHDeepthi Encounter Template Text not used by [place] Assessments - Encounter Diagnoses This section includes the primary and secondary diagnoses documented for the Encounter. Date/Time Primary/Secondary Diagnosis Diagnosis Name Provider Source Sep 25, 2024 05:31 PM PRIMARY Other specified urinary incontinence VOLODYMYR RITTER [facility] Plan of Treatment: Future Appointments (+ 6 months) and Future Tests (+/- 45 days) The Plan of Treatment section includes future care activities for the patient from all [place] treatmentfacilities. This section includes future appointments and future orders which are active, pending or scheduled. Future Appointments This section includes appointments that were scheduled to occur 6 months from the date of the Encounter, up to a maximum of 20 appointments. The data comes from all [facility]. Appointment Date/Time Appointment Type Appointme nt Facility Name Oct 04, 2024 10:30 AM AMBULATORY - MEDICINE [facility] Oct 18, 2024 09:20 AM AMBULATORY - SURGERY [facility] Oct 24, 2024 09:00 AM AMBULATORY - NONE [facility] Oct 31, 2024 03:00 PM AMBULATORY - SURGERY [facility] Nov 01, 2024 11:00 AM AMBULATORY - MEDICINE [facility] Nov 15, 2024 06:00 AM AMBULATORY - NONE [facility] Nov 22, 2024 01:30 PM AMBULATORY - NONE [facility] Nov 28, 2024 02:00 PM AMBULATORY - SURGERY [facility] Jan 10, 2025 09:20 AM AMBULATORY - SURGERY [facility] January 31, 2025 11:00 AM AMBULATORY - MEDICINE [facility] Active, Pending, and Scheduled Orders This section includes a listing of several types of active, pending, and scheduled orders, including clinic medications orders, diagnostic test orders, procedure orders and consult orders; where the start date of the order is 45 days before the date of the Encounter or 45 days after the date of theEncounter. The data comes from all [facility]. Test Date/Time Test Type Test Details Facility Name Aug 19, 2024 12:00 AM Laboratory - Chemi stry Order HCG QUANT GOLD/RED SST SERUM SP [facility] Aug 19, 2024 12:00 AM Laboratory - Chemi stry Order TEST URINE (MA-STL) URINE YELLOW SP [facility] Lab Results: +/- 30 days of the encounter This section includes the Chemistry and Hematology Lab Results on record with [place] for the patient. Radiology Reports and Pathology Reports are provided separately, in subsequent sections. Lab Results This section contains the Chemistry/Hematology Results that were resulted 30 days before or 30 daysafter the date of the Encounter. Date/Time Source Result Type Result - Unit Interpretation Reference Range Specimen Type Comment Oct 04, 2024 12:48 PM [facility] LIPID PANEL (STL) PLASMA Specimen Type: PLASMA Comment: No hemolysis noted. Ordering Provider: SUKHJINDER GLEZ Report Released Date/Time: Oct 04, 2024 10:09 AM Reporting Lab: [address] [address] Performing Lab: [address] [address] CHOLESTEROL 181 mg/dL 0-200 TRIGLYCERIDE 85 mg/dL 0-150 CALCULATED LDL 114 mg/dL HDL(New) 50 mg/dL >40 Oct 04, 2024 12:48 PM [facility] URINALYSIS (L-PB) URINE Specimen Type: URIN E No comment entered. Ordering Provider: SUKHJINDER GLEZ Report Released Date/Time: Oct 04, 2024 10:09 AM Reporting Lab: [address] [address] Performing Lab: [address] [address] URINE COLOR Light-Yellow Yellow U.BILIRUBIN Negative mg/dL Negative U.PH 6.5 5.0-8.0 APPEARANCE Clear Clear U.NITRITE Negative mg/dL Negative URN.GLUCOSE Normal mg/dL Negative URN.PROTEIN Negative mg/dL URN.UROBILINOGEN Normal mg/dL Normal URN.BLOOD Negative mg/dL Negative-Trace URN.KETONES Negative mg/dL Negative-Trac e URN.LEUK.EST. Negative mg/dL Negative-Tr bernie URN.SPECIFIC GRAVITY 1.014 Oct 04, 2024 12:48 PM [facility] CBC BLOOD Specimen Type: BLOOD No comment entered. Ordering Provider: SUKHJINDER GLEZ Report Released Date/Time: Oct 04, 2024 10:09 AM Reporting Lab: [facility] [address] [address] Performing Lab: [facility] [address] [address] WBC 8.4 10*3/uL 3.6-11.2 RBC 4.41 10*6/uL [...] 20 Oct 04, 2024 12:48 PM [facility] HGA1C BLOOD Specimen Type: BLOOD No comment entered. Ordering Provider: SUKHJINDER GLEZ Report Released Date/Time: Oct 04, 2024 10:09 AM Reporting Lab: [facility] [address] [facility] [facility] [address] Performing Lab: [place] [address] [facility] [address] HGA1C 5.4 4.0-6.0 Oct 04, 2024 12:48 PM [facility] TSH W/ REFLEX FT4 (STL) PLASMA Speci men Type: PLASMA No comment entered. Ordering Provider: SUKHJINDER GLEZ Report Released Date/Time: Oct 04, 2024 10:09 AM Reporting Lab: [facility] [address] [facility] [address] Performing Lab: [address] [address] TSH 0.351 u[IU]/mL L 0.47-5 Oct 04, 2024 12:48 PM [facility] FREE T4 (STL) PLASMA Specimen Type: PLASMA No comment entered. Ordering Provider: SUKHJINDER GLEZ Report Released Date/Time: Oct 04, 2024 10:09 AM Reporting Lab: [address] [address] Performing Lab: [address] [address] FREE T4 (STL) 1.02 ng/mL 0.7-1.48 Oct 04, 2024 12:48 PM [facility] VITAMIN D, 25-HYDROXY SERUM Specimen Type: SE RUM Comment: The listed sex of this patient may not be a typical indication for this test. Therefore, reference ranges or interpretive criteria listed may not be valid. Clinical correlation suggested. Ordering Provider: SUKHJINDER GLEZ Report Released Date/Time: Oct 04, 2024 10:09 AM Reporting Lab: [facility] [address] [place] [phone] Performing Lab: [address] [address] VITAMIN D, 25-HYDROXY 40.1 ng/mL 30-96 Oct 04, 2024 12:48 PM [facility] TOTAL T3 (STL) PLASMA Specimen Type: PLASMA No comment entered. Ordering Provider: SUKHJINDER GLEZ Report Released Date/Time: Oct 04, 2024 10:09 AM Reporting Lab: [facility] [address] [place] [phone] Performing Lab: [address] [address] TOTAL T3 (STL) 118.11 ng/dL 58-159 Oct 04, 2024 12:48 PM [facility] TEST URINE (MA-STL) URINE Specimen Type: URINE No comment entered. Ordering Provider: SUKHJINDER GLEZ Report Released Date/Time: Oct 04, 2024 10:11 AM Reporting Lab: [facility] [address] [facility] [address] Performing Lab: [address] [address] Qualitative Test NEG NEGAT BRIANNE Oct 04, 2024 12:48 PM [facility] HCG QUANT SERUM Specimen Type: SERUM Comment: The listed sex of this patient may not be a typical indication for this test. Therefore, reference ranges or interpretive criteria listed may not be valid. Clinical correlation suggested. Ordering Provider: SUKHJINDER GLEZ Report Released Date/Time: Oct 04, 2024 10:11 AM Reporting Lab: [address] [address] Performing Lab: [address] [address] HCG QUANT <1.20 m[IU]/mL 0-5 Oct 04, 2024 12:48 PM [facility] COMPREHENSIVE METABOLIC PANEL PLASMA Specimen Type: PLASMA Comment: No hemolysis noted. Ordering Provider: SUKHJINDER GLEZ Report Released Date/Time: Oct 04, 2024 10:09 AM Reporting Lab: [address] [address] Performing Lab: [address] [address] CREATININE 0.59 mg/dL L 0.6-1.1 UREA NITROGEN [...] and tobacco- related health factors from the [place] facility where the Encounter took place. Current Smoking Status This section includes the most current smoking, or tobacco-related health factor, from the [place] facility where the Encounter took place. Date/Time Current Smoking Status Comment Facil ity Jul 31, 2023 02:36 AM ORYX ADMIT TOBACCO SCREEN YES [facility] Tobacco Use History This section includes a history of the smoking, or tobacco-related health factors, that were collected on or before the date of the Encounter. The data comes from the [place] facility where the Encounter took place. Date/Time Smoking Status/Tobacco Use Comment F acility Jul 31, 2023 02:36 AM ORYX ADMIT TOBACCO USE CIGS GR 5D [facility] Jul 31, 2023 02:36 AM ORYX DAILY TOBACCO BEZEL CUTTER REFUSED [facility] Jul 31, 2023 02:36 AM ORYX DAILY TOBACCO MEDS REFUSED [facility] Pathology Reports: +/- 30 days of the [...] the Encounter. The data comes from all [place] treatment facilities. Date/Time Pathology Report Provider Source Oct 04, 2024 12:48 PM LR MICROBIOLOGY RE PORT: Accession [UID]: [id number] [[id number]] Received: Oct 04, 2024@17:34 Collection sample: URINE,CLEAN CATCH Collection date: Oct 04, 2024 12:48 Site/Specimen: URINE Provider: SUKHJINDER GLEZ Test(s) ordered: C&S URINE..................... completed: Oct 06, 2024 13:33 * BACTERIOLOGY FINAL REPORT => Oct 06, 2024 14:23 TECH CODE: [id number] Bacteriology Remark(s): PW 10/06/24 CULTURE SHOWS NO GROWTH IN 1 DAY. =--=--=--=--=--=--=--=--=--=--=-- =--=--=--=--=--=--=--=--=--=--=-- =--=--=--=-- Performing Laboratory: Bacteriology Report Performed By: [facility] [address] [place] [address]# [id number] [address] [place] [phone] PAMELA HICKS [facility] Encounter Notes: All associated encounter notes This section contains the clinical notes associated to the Encounter. Date/Time Encounter Note(s) Provider Source Sep 25, 2024 05:01 PM URGENT CARE NOTE: [facility] STANDARD TITLE: URGENT CARE NOTE DATE OF NOTE: SEP 25, 2024@17:01 ENTRY DATE: SEP 25, 2024@17:01:39 AUTHOR: VOLODYMYR RITTER EXP COSIGNER: URGENCY: STATUS: COMPLETED PRIMARY CARE TEMPLATE Patient is a 29 year old (Mar) RACE UNKNOWN FEMALE. Patient's identity was verified with at least 2 personal identifiers. *Appointment type: Type of Visit: Video Visit: Telehealth Disclosure: Visit conducted by synchronous telehealth. Patient verbal consent obtained. Location/emergency number confirmed. Environment surveyed and all participants identified. Virtual conference room locked. Emergency contact information was obtained as follows: Confirmed [facility]'s Non-VA location for this appointment: Alternate Address:car Chief Complaint: urinary leakage reviewed nurses note History of Present Illness: urinary incontience when moves bladder is not full when tries to get out of truck etc has been having leakage and more frequency yesterday could not stop urine from leaking while she was trying to shovel snow this issue has been going on for about a month had pap last year normal she has had 4 pregnancies 2 births has some pain with urination when trying to squeeze and has abn smelling urine went to [facility] couple weeks [facility] but not sure what that lab showed she has hx of hydronephrosis with urogram in 08/10 PMH/Active Problem List 1) Tobacco use 2) Liver enzymes level above reference range 3) LBP - Low back pain 4) Cervical pain 5) Thyroid goiter 6) Vitamin D Deficiency ([facility] [id number]) 7) UPJ - Ureteropelvic obstruction 8) Anxiety ([facility] [id number]) 9) Overweight 10) Hydronephrosis Problem list was reviewed. SOCIAL HISTORY Family History: MEDICATIONS: Active and Recently Outpatient Medications (including Supplies): Active Outpatient Medications Status 1) ALPRAZOLAM [...] EVENING Indication: FOR ASTHMA 9 Total Medications Compared newly ordered medications and medication changes to active medications and non-VA medications, and then reviewed medications with patient and/or caregiver. All discrepancies noted and reconciled. Patient, or caregiver, was provided with reconciled medications list and advised to provide to all non VA providers. Potential adverse reactions of new medications were discussed with the patient. REVIEW OF SYSTEMS As per HPI, otherwise unremarkable. PHYSICAL EXAMINATION General:alert VITALS Most recent vital signs: No data available BMI: 25.7 ASSESSMENT/PLAN 1. urinary incontience will get labs she has issues with yeast with abx so will need diflucan if antibiotics are indicated if labs are normal will ask for urology eval due to hx of hydronephrosis Shared medical decision making occurred during this visit with the [facility]. Questions answered and [facility] is agreeable with treatment plan. DISPOSITION: Issue resolved with Clinical Contact Center appointment FOLLOW UP: Advised to keep all scheduled medical and follow-up appointments. was advised to seek medical treatment if symptoms do not improve and/or worsens. Total time spent on visit: 18 minutes /astrid/ VOLODYMYR RITTER BRASS PLATER-C NURSE PRACTITIONER Signed: 09/25/2024 17:31 Receipt Acknowledged By: 09/26/2024 10:52 /es/ OMARI WOMACK,RN REGISTERED NURSE 09/26/2024 15:51 /astrid/ SUKHJINDER GLEZ MD STAFF PHYSICIAN VOLODYMYR RITTER [facility]
--- OUTSIDE RECORDS SUMMARY | 2024-12-29 19:21 | XMS_ITS | Encounter Summary ---
Author Name [facility] [place] Address [address] [place] [id number] Care Team Providers Care Wire Frame Maker Name Role Phone ADELAIDE CERDA Primary Care [...] Sorenson's Name Patient's Relationship to Policy Sorenson [facility] [address] [facility] Oct 20, 2020 ACTIVE DUTY [id number] [phone] DIONNA PHAN SPOUSE Selected Encounter This section includes the information on record at [place] for the Encounter. 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 Date/Time Primary/Secondary Diagnosis Diagnosis Name Provider Source Nov 15, 2024 09:54 AM PRIMARY Embolism and thrombosis of renal vein TAYLA BRINK [facility] Plan of Treatment: Future Appointments (+ 6 months) and Future Tests (+/- 45 days) The Plan of Treatment section includes future care activities for the patient from all [place] [facility]. This section includes future appointments and future orders which are active, pending or scheduled. Future Appointments This section includes appointments that were scheduled to occur 6 months from the date of the Encounter, up to a maximum of 20 appointments. The data comes from all [facility]. Appointment Date/Time Appointment Type Appointme nt Facility Name Nov 22, 2024 01:30 PM AMBULATORY - NONE [facility] Nov 28, 2024 02:00 PM AMBULATORY - SURGERY [facility] Jan 10, 2025 09:20 AM AMBULATORY - SURGERY [facility] January 31, 2025 11:00 AM AMBULATORY - MEDICINE [facility] Active, Pending, and Scheduled Orders This section includes a listing of several types of active, pending, and scheduled orders, including clinic medications orders, diagnostic test orders, procedure orders and consult orders; where the start date of the order is 45 days before the date of the Encounter or 45 days after the date of theEncounter. The data comes from all [facility]. Test Date/Time Test Type Test Details Facility Name Nov 15, 2024 06:00 AM Laboratory - Chemi stry Order TEST URINE (MA-STL) URINE YELLOW STAT [facility] Nov 18, 2024 12:00 AM Laboratory - Microbiology Order C&S URINE URINE,CLEAN CATCH [facility] Nov 18, 2024 12:00 AM Laboratory - Chemi stry Order URINALYSIS (STL-PB) URINE [facility] Nov 18, 2024 12:00 AM Laboratory - Chemi stry Order TEST URINE (MA-STL) URINE YELLOW [facility] Lab Results: +/- 30 days of the encounter This section includes the Chemistry and Hematology Lab Results on record with [place] for the patient. Radiology Reports and Pathology Reports are provided separately, in subsequent sections. Lab Results This section contains the Chemistry/Hematology Results that were resulted 30 days before or 30 daysafter the date of the Encounter. Date/Time Source Result Type Result - Unit Interpretation Reference Range Specimen Type Comment Nov 22, 2024 01:16 PM [facility] I-STAT, CREAT (STL-MA) BLOOD Specimen Type: BLOOD Comment: Test Performed by: [id number] Meter #: [id number] Ordering Provider: SUKHJINDER GLEZ Report Released Date/Time: Nov 22, 2024 03:22 PM Reporting Lab: [facility] [address] [facility] [address] Performing Lab: [place] [id number] [facility] [id number] I-STAT, CREAT (STL-MA) 0.8 mg/dL 0.7-1.3 Nov 15, 2024 06:20 AM [facility] POC CLINITEST HCG URINE Specimen Type: URINE Comment: Test Performed by: [id number] Meter #: [id number] Ordering Provider: KWESI GONZALES Report Released Date/Time: Nov 15, 2024 06:26 AM Reporting Lab: [facility] [address] [facility] [address] Performing Lab: [place] [address] [facility] [address] POC CLINITEST HCG Negative Negative Vital Signs: All taken on the encounter date This section contains inpatient and outpatient Vital Signs collected on the date of the Encounter. Date/Time Temperature Pulse Blood Pressure Respiratory Rate SP02 Pain Height Weight Body Mass Index Source Nov 15, 2024 10:00 AM 98 82 114/81 19 100 0 [facility] Nov 15, 2024 07:00 AM 98.1 60 111/74 16 100 6 66 157.2 25 [facility] Social History: Smoking Status (Most current) and Tobacco Use (All prior to encounter date) This section includes the most current, and the historical, smoking and tobacco- related health factors from the [place] facility where the Encounter took place. Current Smoking Status This section includes the most current smoking, or tobacco-related health factor, from the [place] facility where the Encounter took place. Date/Time Current Smoking Status Comment Facil ity Jul 31, 2023 02:36 AM ORYX ADMIT TOBACCO SCREEN YES [facility] Tobacco Use History This section includes a history of the smoking, or tobacco-related health factors, that were collected on or before the date of the Encounter. The data comes from the [place] facility where the Encounter took place. 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 The data comes from all [place] treatment facilities. Date/Time Radiology Report Provider Source Nov 22, 2024 01:[address] ABD PEL W/CONT & 3D: SYLVESTERDAVID [id number] -[id number] F Exm Date: NOV 22, 2024@13:04 Req Phys: POLLY TAMAYO Loc: [facility]-VASCULAR SURG II (Req'g Loc Img Loc: [facility]-CT IMAGING [facility] Service: Unknown Screen: Patient answered no [facility], VIS [address] [place] [address] (Case [id number] COMPLETE) CT ABDOMEN AND PELVIS W/CONTRAST (CT Detailed) CPT:89167 Contrast Media : Non-ionic Iodinated Reason for [...] 25, 2024 Date Verified: NOV 25, 2024 Movie Producer E-Sig:/ES/SHEELA NOBLE MD Report: Spiral axial imaging [...] Primary Interpreting Staff: SHEELA NOBLE MD, Radiologist (Movie Producer) /[facility]ELA NOBLE [facility] Nov 15, 2024 06:38 AM FLUOROS(SEPARATE PROCEDURE),UP TO 1 HOUR: DAVID PHAN [id number] -[id number] F Exm Date: NOV 15, 2024@06:38 Req Phys: KWESI GONZALES Pat Loc: OP Unknown/11-18-2024@12:32 Img Loc: -MAIN RADIOLOGY SUITE Service: Unknown Screen: Patient answered no [facility], [facility] [address] [place] [address] (Case [id number] COMPLETE) FLUOROS(SEPARATE PROCEDURE),UP TO(RAD Detailed) CPT:39011 CPT Modifiers : TC TECHNICAL COMPONENT Reason for Study: venogram Clinical History: Report Status: Verified Date Reported: NOV 18, 2024 Date Verified: NOV 18, 2024 Movie Producer E-Sig: Report: Fluoroscopy was provided to another [...] Interpreting Staff: SHERLYN TAYLOR, RADIOLOGIST Verified by strapper for SHERLYN TAYLOR /ANDREW TAYLOR,SHERLYN [facility] Encounter Notes: All associated encounter notes This section contains the clinical notes associated to the Encounter. Date/Time Encounter Note(s) Provider Source Nov 15, 2024 09:41 AM PHYSICIAN EDUCATIO N DISCHARGE NOTE: LOCAL TITLE: DISCHARGE INSTRUCTIONS ST STANDARD TITLE: PHYSICIAN EDUCATION DISCHARGE NOTE DATE OF NOTE: NOV 15, 2024@09:41 ENTRY DATE: NOV 15, 2024@09:42:21 AUTHOR: TAYLA BRINK COSIGNER: KWESI GONZALES URGENCY: STATUS: COMPLETED 1. DIAGNOSES: Other: Left renal venogram 2. FUTURE APPOINTMENT(S): *To reschedule [facility] appointments call and use extension below. date/time clinic phone number 11/22/24 1:30 pm [facility] FL[facility] [phone] 12/20/24 11:00 am [facility] [phone] 01/10/25 9:20 am [facility]-UROLOGY MD RES [phone] *This listing may be incomplete. Please refer to Appointment Mgmt.listing for any additional patient appointments 3. DISCHARGE MEDICATIONS: TO HELP YOU UNDERSTAND YOUR DRUG LIST ACTIVE ...means that you are presently taking these meds. SUSPENDED means that your prescription is active and in the mail order process. PENDING ..means that the medication has just been renewed, or, just ordered. HOLD .....means that the medication is active on your list, but will not be processed until pharmacy receives further instructions from you or your doctor to proceed with filling the prescription for delivery. NON-VA ...means you are getting the medication from somewhere besides the [facility]. Active Outpatient Medications (including Supplies): Active Outpatient [...] DAY NEEDED Indication: FOR COUGH 2) Non-VA BENZONATATE 100MG CAP 100MG BY MOUTH THREE TIMES A ACTIVE DAY NEEDED Indication: FOR COUGH 3) Non-VA DOXYCYCLINE HYCLATE 100MG TAB 100MG BY MOUTH TWICE A ACTIVE DAY Indication: FOR BRONCHITIS 4) Non-VA DOXYCYCLINE HYCLATE 100MG TAB 100MG BY MOUTH TWICE A ACTIVE DAY Indication: sinusitis 5) Non-VA FLUCONAZOLE 150MG TAB 150MG BY MOUTH EVERY 72 HOURS ACTIVE NEEDED Indication: FOR FUNGAL INFECTION 6) Non-VA MOMETASONE FUROATE 220MCG ORAL INHL 60 1 PUFF BY ORAL ACTIVE INHALATION EVERY EVENING Indication: FOR ASTHMA 11 Total Medications NEW MEDICATIONS (and indicatons): None The following changes were made to the medications you were taking prior to this hospitalization: None These medications have been stopped during your hospitalization (and reason why): None At your next appointment, please remember to bring all of your medication bottles with you Medication Reconciliation: I have discussed active and pending medications with the patient and/or childcare worker. I have made changes as appropriate................ .YES 4. DISCHARGE INTRUCTIONAL MATERIALS *To be printed by Nurse and provided to patient Other (specify below) Left renal venogram 5. WOUND MANAGEMENT: Other (specify below) Keep puncture site covered for at least 24 hours You may shower tomorrow, but do not soak in bathtub or go swimming until puncture site is fully healed 6. DISCHARGE DIETARY INSTRUCTIONS: No Dietary Instructions If you have questions, contact the dietitians at [phone]. 7. DISCHARGE PHYSICAL ACTIVITY INSTRUCTIONS: Activity as tolerated 8. OTHER (Include employment status): 9. WORSENING and/or DANGEROUS SYMPTOMS TO REPORT (Phys. entry required): Other (specify below) Fever of 100.4 F ( 38 C) or higher, or as directed by your healthcare provider Chills Signs of infection, such as redness, swelling, or warmth at the incision site Bleeding, bruising, or lots of swelling where the catheter was inserted Blood in your urine Black or tarry stools Any unusual bleeding Having more or less urine than normal (a change in urine output) Specialist Information: Vascular surgery II [id number] Return to clinic on 11/28/2024 Follow-up with your Primary Care Physician or Specialist or call [facility] Helpline: [phone] NOTE: If you are having feelings of Depression or Emotional Distress, or feel you just need to talk with someone, please call 0 PRESS 1. Copy Provided to Patient /es/ TAYLA BIRNK PA-C Physician Service Vehicle Operator, Surgery Signed: 11/15/2024 09:54 /astrid/ KWESI GONZALES Staff Physician, Vascular Surgery Cosigned: 11/15/2024 10:44 TAYLA BRINK [facility]
--- OUTSIDE RECORDS SUMMARY | 2024-12-29 19:21 | XMS_ITS | Encounter Summary ---
Author Name [facility] [place] [facility] [place] Address [address] [place] [address] Care Team Providers Care Rabble Furnace Tender Name Role Phone ADELAIDE CERDA Primary Care [...] Sorenson's Name Patient's Relationship to Policy Sorenson [address] Oct 20, 2020 ACTIVE DUTY [id number] [phone] DIONNA PHAN SPOUSE Selected Encounter This section includes the information on record at [place] for the Encounter. Date/Time Encounter Type Encounter Description Reason Provider Source Jul 12, 2024 11:00 AM Outpatient Encounter [facility] LIDIA ALVARADO Encounter Template Text not used by VA Plan of Treatment: Future Appointments (+ 6 months) and Future Tests (+/- 45 days) The Plan of Treatment section includes future care activities for the patient from all [place] [facility] This section includes future appointments and future orders which are active, pending or scheduled. Future Appointments This section includes appointments that were scheduled to occur 6 months from the date of the Encounter, up to a maximum of 20 appointments. The data comes from all [facility]. Appointment Date/Time Appointment Type Appointme nt Facility Name Aug 16, 2024 11:00 AM AMBULATORY - MEDICINE [facility] Sep 06, 2024 03:00 PM AMBULATORY - MEDICINE [facility] Sep 25, 2024 05:00 PM AMBULATORY - NONE . [facility] Oct 04, 2024 10:30 AM AMBULATORY - MEDICINE [facility] Oct 18, 2024 09:20 AM AMBULATORY - SURGERY [facility] Oct 24, 2024 09:00 AM AMBULATORY - NONE [facility] Oct 31, 2024 03:00 PM AMBULATORY - SURGERY . [facility] Nov 01, 2024 11:00 AM AMBULATORY - MEDICINE [facility] Nov 15, 2024 06:00 AM AMBULATORY - NONE . [facility] Nov 22, 2024 01:30 PM AMBULATORY - NONE [facility] Nov 28, 2024 02:00 PM AMBULATORY - SURGERY [facility] Jan 10, 2025 09:20 AM AMBULATORY - SURGERY [facility] Active, Pending, and Scheduled Orders This section includes a listing of several types of active, pending, and scheduled orders, including clinic medications orders, diagnostic test orders, procedure orders and consult orders; where the start date of the order is 45 days before the date of the Encounter or 45 days after the date of theEncounter. The data comes from all [facility]. Test Date/Time Test Type Test Details Facility Name Aug 19, 2024 12:00 AM Laboratory - Chemi stry Order HCG QUANT GOLD/RED SST SERUM SP [facility] Aug 19, 2024 12:00 AM Laboratory - Chemi stry Order TEST URINE (MA-STL) URINE YELLOW SP [facility] Social History: Smoking Status (Most current) and Tobacco Use (All prior to encounter date) This section includes the most current, and the historical, smoking and tobacco- related health factors from the [place] facility where the Encounter took place. Current Smoking Status This section includes the most current smoking, or tobacco-related health factor, from the [place] facility where the Encounter took place. Date/Time Current Smoking Status Comment Facil ity Dec 22, 2022 01:00 PM VA-TOBACCO USE ADVICE [facility] Tobacco Use History This section includes a history of the smoking, or tobacco-related health factors, that were collected on or before the date of the Encounter. The data comes from the [place] facility where the Encounter took place. Date/Time Smoking Status/Tobacco Use Comment F acility Dec 22, 2022 01:00 PM VA-TOBACCO USE 5 TO 15 YEARS [facility] Dec 22, 2022 01:00 PM VA-TOBACCO USE ADVICE [facility] Dec 22, 2022 01:00 PM VA-TOBACCO USE BUSINESS DEVELOPER NO [facility] Dec 22, 2022 01:00 PM VA-TOBACCO USE MED NO [facility] Dec 22, 2022 01:00 PM VA-TOBACCO USER EVERY DAY [facility] Encounter Notes: All associated encounter notes This section contains the clinical notes associated to the Encounter. Date/Time Encounter Note(s) Provider Source Jul 12, 2024 11:39 AM MENTAL HEALTH ADMI NISTRATIVE NOTE: LOCAL TITLE: [facility] NO SHOW STL STANDARD TITLE: MENTAL HEALTH ADMINISTRATIVE NOTE DATE OF NOTE: JUL 12, 2024@11:39 ENTRY DATE: JUL 12, 2024@11:39:56 AUTHOR: LIDIA CARRILLO EXP COSIGNER: URGENCY: STATUS: COMPLETED did not attend scheduled appointment. [facility] DOES NOT have a high risk flag for suicide assigned to his/her chart. Attempted to contact by phone due to failure to appear for scheduled appointment. missed scheduled appointment. First unsuccessful attempt at phone contact made. Further attempts at contact will be made on separate days. - Superintendent [employer] (added as signer) is hereby requested to send letter with clinic contact information, encouraging the [facility] to call to discuss further services if so desired. Further attempts at phone contact will be made. - Left message for [facility] [place] with direct contact information for clinic. /astrid/ Lidia Carrillo Psy.D. Staff Psychologist Signed: 07/12/2024 11:40 [facility]
--- OUTSIDE RECORDS SUMMARY | 2024-12-29 19:21 | XMS_ITS | Clinical Summary ---
Author Organization [facility] Address [address] [place] [address] Care Team Providers Care Learning Services Coordinator Name Role Phone No, Physician Primary Care Provider [phone] Allergies Active Allergy Reactions Criticality Noted Date Comments Spectro-Sporin Shortness of breath High 09/06/2023 Medications benzonatate (TESSALON) 200 mg capsuleIndicati ons:Viral URI with cough Take 1 capsule (200 mg total) by mouth 3 (three) times a day as needed for cough 42 capsule 3 Active Additional Information Patient not taking.Reported on 10/19/2023 fluconazole (DIFLUCAN) 150 mg tabletIndicatio ns:Antibiotic-i nduced yeast infection Take one tab now. Repeat in 7 days if symptoms persist. 2 tablet 4 Active Active Problems No known active problems Social History Tobacco Use Types Packs/Day Years Used Date Smoking Tobacco: Never Assessed Comments Unknown Sex and Gender Information Value Date Recorded Sex Assigned at Not on file Legal Sex Female 8:49 PM CDT Gender Identity Not on file Sexual Orientation Not on file Obstetrics History Last Filed Vital Signs Vital Sign Reading Time Taken Comments Blood Pressure 100/52 10/19/2023 3:07 PM [facility] Pulse 86 10/19/2023 3:07 PM [facility] Temperature 36.4 C (97.5 F) 10/19/2023 3:07 PM [facility] Respiratory Rate 16 10/19/2023 3:07 PM [facility] Oxygen Saturation 98% 10/19/2023 3:07 PM [facility] Inhaled Oxygen Concentration - - Weight 71.7 kg (158 lb) 10/19/2023 3:07 PM [facility] Height 167.6 cm (5' 6 ) 10/19/2023 3:07 PM [facility] Body Mass Index 25.5 10/19/2023 3:07 PM [facility] Plan of Treatment Health Maintenance Due Date Last Done Comments Cervical Cancer Screening 1994 Depression Screening 1994 Hepatitis C Screening 1994 DTaP/Tdap/Td Vaccine (1 - Tdap) 2005 Varicella Vaccines (1 of 2 - 13+ 2-dose series) 2007 Hepatitis B Screening 2012 Regular Well Visit/Exam 18-64 2012 Influenza Vaccine (#1) 2024 HPV Vaccines Aged Out No longer eligi ble based on patient's age to complete this topic Pneumococcal vaccine <65 Aged Out No longer eligible based on patient's age to complete this topic Insurance [facility] CLAIMS Care Teams Learning Services Coordinator Relationship Specialty Start Date End Date No, Physician PCP - General 09/06/23
--- OUTSIDE RECORDS SUMMARY | 2024-12-29 19:21 | XMS_ITS | Encounter Summary ---
Author Name [place] Address [address] [place] [id number] Care Team Providers Care Certified Histologic Technician Name Role Phone ADELAIDE CERDA Primary Care [...] Sorenson's Name Patient's Relationship to Policy Sorenson [facility] 2017 [facility] Oct 20, 2020 ACTIVE DUTY [id number] [phone] DIONNA PHAN SPOUSE Selected Encounter This section includes the information on record at [place] for the Encounter. Date/Time Encounter Type Encounter Description Reason Provider Source Nov 15, 2024 06:42 AM OFFICE O/P EST MOD 30 MIN ANESTHESIA PRE/POST-OP CONSULT ICD-10-CM Z01.818 Encounter for other preprocedural examination DON STEVEE Encounter Template Text not used by [place] Assessments - Encounter Diagnoses This section includes the primary and secondary diagnoses documented for the Encounter. Date/Time Primary/Secondary Diagnosis Diagnosis Name Provider Source Nov 15, 2024 06:51 AM PRIMARY Encounter for other preprocedural examination SHAZIA MOORE [facility] Nov 15, 2024 06:51 AM SECONDARY Encounter for other specified surgical aftercare SHAZIA MOORE [facility] Plan of Treatment: Future Appointments (+ 6 months) and Future Tests (+/- 45 days) The Plan of Treatment section includes future care activities for the patient from all [place] [facility]. This section includes future appointments and future orders which are active, pending or scheduled. Future Appointments This section includes appointments that were scheduled to occur 6 months from the date of the Encounter, up to a maximum of 20 appointments. The data comes from all [facility]. Appointment Date/Time Appointment Type Appointme nt Facility Name Nov 22, 2024 01:30 PM AMBULATORY - NONE [facility] Nov 28, 2024 02:00 PM AMBULATORY - [facility] Jan 10, 2025 09:20 AM AMBULATORY - SURGERY [facility] January 31, 2025 11:00 AM AMBULATORY - MEDICINE [facility] Active, Pending, and Scheduled Orders This section includes a listing of several types of active, pending, and scheduled orders, including clinic medications orders, diagnostic test orders, procedure orders and consult orders; where the start date of the order is 45 days before the date of the Encounter or 45 days after the date of theEncounter. The data comes from all [facility]. Test Date/Time Test Type Test Details Facility Name Nov 15, 2024 06:00 AM Laboratory - Chemi stry Order TEST URINE (MA-STL) URINE YELLOW STAT [facility] Nov 18, 2024 12:00 AM Laboratory - Chemi stry Order URINALYSIS (STL-PB) URINE [facility] Nov 18, 2024 12:00 AM Laboratory - Microbiology Order C&S URINE URINE,CLEAN CATCH [facility] Nov 18, 2024 12:00 AM Laboratory - Chemi stry Order TEST URINE (MA-STL) URINE YELLOW SP [facility] Lab Results: +/- 30 days of the encounter This section includes the Chemistry and Hematology Lab Results on record with [place] for the patient. Radiology Reports and Pathology Reports are provided separately, in subsequent sections. Lab Results This section contains the Chemistry/Hematology Results that were resulted 30 days before or 30 daysafter the date of the Encounter. Date/Time Source Result Type Result - Unit Interpretation Reference Range Specimen Type Comment Nov 22, 2024 01:16 PM [facility] I-STAT, CREAT (STL-MA) BLOOD Specimen Type: BLOOD Comment: Test Performed by: [id number] Meter #: [id number] Ordering Provider: SUKHJINDER GLEZ Report Released Date/Time: Nov 22, 2024 03:22 PM Reporting Lab: [place] [address] [facility] [address] Performing Lab: [place] [address] [facility] [address] I-STAT, CREAT (STL-MA) 0.8 mg/dL 0.7-1.3 Nov 15, 2024 06:20 AM [facility] POC CLIN[facility] HCG URINE Specimen Type: URINE Comment: Test Performed by: [id number] Meter #: [id number] Ordering Provider: KWESI GONZALES Report Released Date/Time: Nov 15, 2024 06:26 AM Reporting Lab: [place] [address] [facility] [address] Performing Lab: [address] [address] [facility] HCG Negative Negative Vital Signs: All taken on the encounter date This section contains inpatient and outpatient Vital Signs collected on the date of the Encounter. Date/Time Temperature Pulse Blood Pressure Respiratory Rate SP02 Pain Height Weight Body Mass Index Source Nov 15, 2024 10:00 AM 98 82 114/81 19 100 0 [facility] Nov 15, 2024 07:00 AM 98.1 60 111/74 16 100 6 66 157.2 25 [facility] Social History: Smoking Status (Most current) and Tobacco Use (All prior to encounter date) This section includes the most current, and the historical, smoking and tobacco- related health factors from the [place] facility where the Encounter took place. Current Smoking Status This section includes the most current smoking, or tobacco-related health factor, from the [place] facility where the Encounter took place. Date/Time Current Smoking Status Comment Facil ity Jul 31, 2023 02:36 AM ORYX ADMIT TOBACCO SCREEN YES [facility] Tobacco Use History This section includes a history of the smoking, or tobacco-related health factors, that were collected on or before the date of the Encounter. The data comes from the [place] facility where the Encounter took place. 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 The data comes from all [place] treatment facilities. Date/Time Radiology Report Provider Source Nov 22, 2024 01:[address] ABD PEL W/CONT & 3D: DAVID PHAN [id number] -1995 F Exm Date: NOV 22, 2024@13:04 Req Phys: POLLY TAMAYO Loc: [facility]-VASCULAR SURG II (Req'g Loc Img Loc: [facility]-CT IMAGING [place] Service: Unknown Screen: Patient answered no [facility] [address] [place] [address] (Case [id number] COMPLETE) CT ABDOMEN AND PELVIS W/CONTRAST (CT Detailed) CPT:66209 Contrast Media : Non-ionic Iodinated Reason for [...] 25, 2024 Date Verified: NOV 25, 2024 Building Services Coordinator E-Sig:/ES/SHEELA NOBLE MD Report: Spiral axial imaging [...] Primary Interpreting Staff: SHEELA NOBLE MD, Radiologist (Building Services Coordinator) /[facility] SHEELA NOBLE [facility] Nov 15, 2024 06:38 AM FLUOROS(SEPARATE PROCEDURE),UP TO 1 HOUR: DAVID PHAN [id number] -1995 F Exm Date: NOV 15, 2024@06:38 Req Phys: KWESI GONZALES Loc: OP Unknown/11-18-2024@12:32 Img Loc: [facility]-MAIN RADIOLOGY SUITE Service: Unknown Screen: Patient answered no [facility], [facility] [address] [place] [address] (Case [id number] COMPLETE) FLUOROS(SEPARATE PROCEDURE),UP TO(RAD Detailed) CPT:92267 CPT Modifiers : TC TECHNICAL COMPONENT Reason for Study: venogram Clinical History: Report Status: Verified Date Reported: NOV 18, 2024 Date Verified: NOV 18, 2024 Building Services Coordinator E-Sig: Report: Fluoroscopy was provided to another [...] Interpreting Staff: SHERLYN TAYLOR, RADIOLOGIST Verified by family service caseworker for SHERLYN TAYLOR /SHERLYN MORFIN [facility] Encounter Notes: All associated encounter notes This section contains the clinical notes associated to the Encounter. Date/Time Encounter Note(s) Provider Source Nov 18, 2024 07:33 AM ANESTHESIOLOGY POS T OPERATIVE E & M NOTE: LOCAL TITLE: ANESTHESIA POST-OP STL STANDARD TITLE: ANESTHESIOLOGY POST OPERATIVE E & M NOTE DATE OF NOTE: NOV 18, 2024@07:33 ENTRY DATE: NOV 18, 2024@07:33:46 AUTHOR: SHAZIA MOORE EXP COSIGNER: URGENCY: STATUS: COMPLETED No apparent anesthesia related complications noted. /astrid/ SHAZIA MOORE MD Staff Anesthesiolgist Signed: 11/18/2024 07:34 SHAZIA MOORE [facility] Nov 15, 2024 06:43 AM ANESTHESIOLOGY PRE OPERATIVE E & M NOTE: LOCAL TITLE: ANESTHESIA PRE-OP STL STANDARD TITLE: ANESTHESIOLOGY PRE OPERATIVE E & M NOTE DATE OF NOTE: NOV 15, 2024@06:43 ENTRY DATE: NOV 15, 2024@06:43:14 AUTHOR: SHAZIA MOORE EXP COSIGNER: URGENCY: STATUS: COMPLETED Pre-operative diagnosis: Left flank pain Planned procedure: Left renal venogram No significant health chngessince most recent pre-anesthesia evaluation completed on 06 Nov 2024. VITALS Age: 29 Weight: 162.1 lb [73.53 [...] found PROBLEM LIST 1) Tobacco use comment: 09/19 ppd 2) Liver enzymes level above reference range 3) LBP - Low back pain 4) Cervical pain 5) Thyroid goiter 6) Vitamin D Deficiency ([facility] [id number]) 7) UPJ - Ureteropelvic obstruction comment: hydronephrosis left side with re construction 8) Anxiety ([facility] [id number]) 9) Overweight 10) Hydronephrosis comment: left ureter w pyelonephritis. 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 for: - Sleep apnea - Asthma - COPD CARDIAC ? for: - Hypertension - Hyperlipidemia - Myocardial infarction - Coronary artery disease - Heart failure - Valvular disease - Atrial fibrillation/flutter PSYCH/CENTRAL NERVOUS ? for: + Depression + Anxiety - Post-traumatic stress disorder - Cerebral vascular accident - Seizures ENDOCRINE ? for: - Diabetes - Hypothyroid + subclinical hyperthyroid (per PCP) RENAL ? for: - Chronic kidney disease - Nephrolithiasis + renal vein thrombosis + hx left hydronephrosis and UPJ obestucion, s/p pyeloplasty ' GI ? for: - GERD - Liver disease - GI bleed VASCULAR/HEMATOLOGY/ONCOLOGY ? for: - Anemia - Thrombocytopenia - Bleeding disorders MUSCULOSKELETAL/SKIN/PERIPHE RAL NERVOUS ? for: - Obesity - Arthritis/Degenerative joint disease - Rheumatoid arthritis - Neuropathy + sciatica /REPRODUCTIVE ? for: - Negative test this AM HABITS: Alcohol: None Tobacco: Quit 2 yr aago Illiciit drugs: None BETA BLOCKERS: NONE PHYSICAL EXAM: Heart: RRR Lungs: CTA Airway: CClass 1 with normal dentician RECOMMENDATIONS/PLAN: ASA 1 Plan for MAC anesthesia /es/ SHAZIA MOORE MD Staff Anesthesiolgist Signed: 11/15/2024 06:51 Receipt Acknowledged By: 11/15/2024 07:03 /astrid/ SHAZIA Bailey CRNA, CRNA [facility]
--- OUTSIDE RECORDS SUMMARY | 2024-12-29 19:21 | XMS_ITS ---
Author Name [place] Address [address] [place] [address] Care Team Providers Care Wash House Worker Name Role Phone ADELAIDE CERDA Primary Care [...] Sorenson's Name Patient's Relationship to Policy Sorenson [facility] 2018 [facility] Oct 20, 2020 ACTIVE DUTY [id number] [phone] DIONNA PHAN SPOUSE Selected Encounter This section includes the information on record at [place] for the Encounter. Date/Time Encounter Type Encounter Description Reason Provider Source Nov 15, 2024 09:57 AM Outpatient Encounter ADMIN PAT ACTIVTIES (MASNONCT) JORGE FRANKS Deepthi Encounter Template Text not used by [place] Plan of Treatment: Future Appointments (+ 6 months) and Future Tests (+/- 45 days) The Plan of Treatment section includes future care activities for the patient from all [place] [facility] This section includes future appointments and future orders which are active, pending or scheduled. Future Appointments This section includes appointments that were scheduled to occur 6 months from the date of the Encounter, up to a maximum of 20 appointments. The data comes from all [facility]. Appointment Date/Time Appointment Type Appointme nt Facility Name Nov 22, 2024 01:30 PM AMBULATORY - NONE [facility] Nov 28, 2024 02:00 PM AMBULATORY - SURGERY [facility] Jan 10, 2025 09:20 AM AMBULATORY - SURGERY [facility] January 31, 2025 11:00 AM AMBULATORY - MEDICINE [facility] Active, Pending, and Scheduled Orders This section includes a listing of several types of active, pending, and scheduled orders, including clinic medications orders, diagnostic test orders, procedure orders and consult orders; where the start date of the order is 45 days before the date of the Encounter or 45 days after the date of theEncounter. The data comes from all [facility]. Test Date/Time Test Type Test Details Facility Name Nov 15, 2024 06:00 AM Laboratory - Chemi stry Order TEST URINE (MA-STL) URINE YELLOW STAT [facility] Nov 18, 2024 12:00 AM Laboratory - Microbiology Order C&S URINE URINE,CLEAN CATCH [facility] Nov 18, 2024 12:00 AM Laboratory - Chemi stry Order URINALYSIS (STL-PB) URINE [facility] Nov 18, 2024 12:00 AM Laboratory - Chemi stry Order TEST URINE (MA-STL) URINE YELLOW [facility] Lab Results: +/- 30 days of [...] Type Comment Nov 22, 2024 01:16 PM [facility] I-STAT, CREAT (STL-MA) BLOOD Specimen Type: BLOOD Comment: Test Performed by: [id number] Meter #: [id number] Ordering Provider: SUKHJINDER GLEZ Report Released Date/Time: Nov 22, 2024 03:22 PM Reporting Lab: [facility] [address] [facility] [address] Performing Lab: [facility] [address] [address] I-STAT, CREAT (STL-MA) 0.8 mg/dL 0.7-1.3 Nov 15, 2024 06:20 AM [facility] POC CLINITEST HCG URINE Specimen Type: URINE Comment: Test Performed by: [id number] Meter #: [id number] Ordering Provider: KWESI GONZALES Report Released Date/Time: Nov 15, 2024 06:26 AM Reporting Lab: [place] [id number] [facility] [facility] [address] Performing Lab: [place] [address] [address] [facility] [facility] [address] POC CLINITEST HCG Negative Negative Vital Signs: All taken on the encounter date This section contains inpatient and outpatient Vital Signs collected on the date of the Encounter. Date/Time Temperature Pulse Blood Pressure Respiratory Rate SP02 Pain Height Weight Body Mass Index Source Nov 15, 2024 10:00 AM 98 82 114/81 19 100 0 [facility] Nov 15, 2024 07:00 AM 98.1 60 111/74 16 100 6 66 157.2 25 [facility] Social History: Smoking Status (Most [...] 02:36 AM ORYX ADMIT TOBACCO SCREEN YES [facility] Tobacco Use History This section includes a history of the smoking, or tobacco-related health factors, that were collected on or before the date of the Encounter. The data comes from the [place] facility where the Encounter took place. 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 REFUSED [facility] Jul 31, 2023 02:36 AM ORYX DAILY TOBACCO MEDS REFUSED [facility] Radiology Reports: +/- 30 [...] ABD PEL W/CONT & 3D: DAVID PHAN [id number] -1995 F Exm Date: NOV 22, 2024@13:04 Req Phys: POLLY TAMAYO Loc: [facility]-VASCULAR SURG II (Req'g Loc Img Loc: [facility]CT IMAGING [place] Service: Unknown Screen: Patient answered no [facility], [facility] [address] [place] [address] (Case [id number] COMPLETE) CT ABDOMEN AND PELVIS W/CONTRAST (CT Detailed) CPT:47543 Contrast Media : Non-ionic Iodinated Reason for [...] 25, 2024 Date Verified: NOV 25, 2024 Hat Measurer E-Sig:/ES/SHEELA NOBLE MD Report: Spiral axial imaging [...] Primary Interpreting Staff: SHEELA NOBLE MD, Radiologist (Hat Measurer) /[facility] SHEELA NOBLE [facility] Nov 15, 2024 06:38 AM FLUOROS(SEPARATE PROCEDURE),UP TO 1 HOUR: SYLVESTERDAVID [id number] -1995 F Exm Date: NOV 15, 2024@06:38 Req Phys: KWESI GONZALES Pat Loc: OP Unknown/11-18-2024@12:32 Img Loc: [facility] SUITE Service: Unknown Screen: Patient answered no [facility], [facility] [address] [place] [address] (Case [id number] COMPLETE) FLUOROS(SEPARATE PROCEDURE),UP TO(RAD Detailed) CPT:76896 CPT Modifiers : TC TECHNICAL COMPONENT Reason for Study: venogram Clinical History: Report Status: Verified Date Reported: NOV 18, 2024 Date Verified: NOV 18, 2024 Hat Measurer E-Sig: Report: Fluoroscopy was provided to another [...] Interpreting Staff: SHERLYN TAYLOR, RADIOLOGIST Verified by charger operator helper for SHERLYN TAYLOR /ANDREW TAYLOR,SHERLYN [facility] Encounter Notes: All associated encounter notes This section contains the clinical notes associated to the Encounter. Date/Time Encounter Note(s) Provider Source Nov 15, 2024 09:57 AM ANESTHESIOLOGY CANDIDA WSHEET: LOCAL TITLE: PACU POST-OP FLOWSHEET ST STANDARD TITLE: ANESTHESIOLOGY FLOWSHEET DATE OF NOTE: NOV 15, 2024@09:57 ENTRY DATE: NOV 15, 2024@09:57:24 AUTHOR: JORGE FRANKS EXP COSIGNER: URGENCY: STATUS: COMPLETED Patient: DAVID PHAN SSN: [id number] Anesthesia Method: Monitored 11/15/2024 7:49 (Primary), Level Of Consciousness: Sedated, Monitors Applied, Oxygen Therapy: Mask, EtCO2 Verified: Waveform Positioning: Head Neutral, Head And Neck In Alignment With Spine, Pressure Points Padded & Checked, Eyes, Ears And Nose Free Of Pressure ASA Number: 1 Procedure: left renal venogram Diagnosis: left flank pain PACU Drugs: PACU Fluids: Date of Operation: 11/15/2024 Anesthesia Care End: 11/15/2024 9:35 Resources: Aquacel foam placed on adolph prominence to protect skin during surgery Safety Belt Staff: --------- KWESI GONZALES, SURGEON KWESI GONZALES, ATT. SURGEON RINKU SOMMER, Holding Nurse RINKU SOMMER, Holding Nurse SHAZIA MOORE ANES. GENO. DON STEVE PRIN. ANES. YUNGLING, [place], Post-Op Nurse Surgery Start Time: 11/15/2024 8:01 Procedure End Time: Moderate Sedation Care End: /astrid/ OMARI ESQUIVEL, RN Signed: 11/15/2024 09:57 JORGE FRANKS [facility]
--- OUTSIDE RECORDS SUMMARY | 2024-12-29 19:21 | XMS_ITS | Encounter Summary ---
Author Name [facility] [place] [facility] [place] Address [address] [place] [address] Care Team Providers Care Paint Spray Inspector Name Role Phone ADELAIDE CERDA Primary Care [...] Sorenson's Name Patient's Relationship to Policy Sorenson [facility] [address] [facility] Oct 20, 2020 ACTIVE DUTY [id number] [phone] DIONNA KERR SPOUSE Selected Encounter This section includes the information on record at [place] for the Encounter. 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 This section includes future appointments and future orders which are active, pending or scheduled. Future Appointments This section includes appointments that were scheduled to occur 6 months from the date of the Encounter, up to a maximum of 20 appointments. The data comes from all [facility] facilities. Appointment Date/Time Appointment Type Appointme nt Facility Name Nov 01, 2024 11:00 AM AMBULATORY - MEDICINE [facility] Nov 15, 2024 06:00 AM AMBULATORY - NONE [facility] Nov 22, 2024 01:30 PM AMBULATORY - NONE [facility] Nov 28, 2024 02:00 PM AMBULATORY - SURGERY [facility] Jan 10, 2025 09:20 AM AMBULATORY - SURGERY [facility] January 31, 2025 11:00 AM AMBULATORY - MEDICINE [facility] Active, Pending, and Scheduled Orders This section includes a listing of several types of active, pending, and scheduled orders, including clinic medications orders, diagnostic test orders, procedure orders and consult orders; where the start date of the order is 45 days before the date of the Encounter or 45 days after the date of theEncounter. The data comes from all [facility]. Test Date/Time Test Type Test Details Facility Name Nov 15, 2024 06:00 AM Laboratory - Chemi stry Order TEST URINE (MA-STL) URINE YELLOW STAT [facility] Nov 18, 2024 12:00 AM Laboratory - Chemi stry Order URINALYSIS (STL-PB) URINE [facility] Nov 18, 2024 12:00 AM Laboratory - Microbiology Order C&S URINE URINE,CLEAN CATCH [facility] Nov 18, 2024 12:00 AM Laboratory - Chemi stry Order TEST URINE (MA-STL) URINE YELLOW [facility] Lab Results: +/- 30 days of the encounter This section includes the Chemistry and Hematology Lab Results on record with [place] for the patient. Radiology Reports and Pathology Reports are provided separately, in subsequent sections. Lab Results This section contains the Chemistry/Hematology Results that were resulted 30 days before or 30 daysafter the date of the Encounter. Date/Time Source Result Type Result - Unit Interpretation Reference Range Specimen Type Comment Nov 22, 2024 01:16 PM [facility] I-STAT, CREAT (STL-MA) BLOOD Specimen Type: BLOOD Comment: Test Performed by: [id number] Meter #: [id number] Ordering Provider: SUKHJINDER GLEZ Report Released Date/Time: Nov 22, 2024 03:22 PM Reporting Lab: [facility] [address] [facility] [address] Performing Lab: [place] [id number] [facility] [address] I-STAT, CREAT (L-DE) 0.8 mg/dL 0.7-1.3 Nov 15, 2024 06:20 AM [facility] POC CLINITEST HCG URINE Specimen Type: URINE Comment: Test Performed by: [id number] Meter #: [id number] Ordering Provider: KWESI GONZALES Report Released Date/Time: Nov 15, 2024 06:26 AM Reporting Lab: [facility] [address] [address] Performing Lab: [address] [address] POC CLINITEST HCG Negative Negative Oct 04, 2024 12:48 PM [facility] LIPID PANEL (STL) PLASMA Specimen Ty pe: PLASMA Comment: No hemolysis noted. Ordering Provider: SUKHJINDER GLEZ Report Released Date/Time: Oct 04, 2024 10:09 AM Reporting Lab: [address] [address] Performing Lab: [address] [address] CHOLESTEROL 181 mg/dL 0-200 TRIGLYCERIDE 85 mg/dL 0-150 CALCULATED LDL 114 mg/dL HDL(New) 50 mg/dL >40 Oct 04, 2024 12:48 PM [facility] URINALYSIS (L-PB) URINE Specimen Type: URIN E No comment entered. Ordering Provider: SUKHJINDER GLEZ Report Released Date/Time: Oct 04, 2024 10:09 AM Reporting Lab: [address] [address] Performing Lab: [address] [address] URINE COLOR Light-Yellow Yellow U.BILIRUBIN Negative mg/dL Negative U.PH 6.5 5.0-8.0 APPEARANCE Clear Clear U.NITRITE Negative mg/dL Negative URN.GLUCOSE Normal mg/dL Negative URN.PROTEIN Negative mg/dL URN.UROBILINOGEN Normal mg/dL Normal URN.BLOOD Negative mg/dL Negative-Trace URN.KETONES Negative mg/dL Negative-Trac e URN.LEUK.EST. Negative mg/dL Negative-Tr bernie URN.SPECIFIC GRAVITY 1.014 Oct 04, 2024 12:48 PM [facility] CBC BLOOD Specimen Type: BLOOD No comment entered. Ordering Provider: SUKHJINDER GLEZ Report Released Date/Time: Oct 04, 2024 10:09 AM Reporting Lab: [address] [address] Performing Lab: [facility] [address] [address] WBC 8.4 10*3/uL 3.6-11.2 RBC 4.41 10*6/uL [...] 0.00-0. 20 Oct 04, 2024 12:48 PM [facility] HGA1C BLOOD Specimen Type: BLOOD No comment entered. Ordering Provider: SUKHJINDER GLEZ Report Released Date/Time: Oct 04, 2024 10:09 AM Reporting Lab: [address] [address] Performing Lab: [address] [address] HGA1C 5.4 4.0-6.0 Oct 04, 2024 12:48 PM [facility] FREE T4 (STL) PLASMA Specimen Type: PLASMA No comment entered. Ordering Provider: SUKHJINDER GLEZ Report Released Date/Time: Oct 04, 2024 10:09 AM Reporting Lab: [address] [address] Performing Lab: [address] [address] FREE T4 (STL) 1.02 ng/mL 0.7-1.48 Oct 04, 2024 12:48 PM [facility] TSH W/ REFLEX FT4 (STL) PLASMA Speci men Type: PLASMA No comment entered. Ordering Provider: SUKHJINDER GLEZ Report Released Date/Time: Oct 04, 2024 10:09 AM Reporting Lab: [facility] [address] [facility] [address] Performing Lab: [address] [address] TSH 0.351 u[IU]/mL L 0.47-5 Oct 04, 2024 12:48 PM [facility] TOTAL T3 (STL) PLASMA Specimen Type: PLASMA No comment entered. Ordering Provider: SUKHJINDER GLEZ Report Released Date/Time: Oct 04, 2024 10:09 AM Reporting Lab: [address] [address] Performing Lab: [address] [address] TOTAL T3 (STL) 118.11 ng/dL 58-159 Oct 04, 2024 12:48 PM [facility] VITAMIN D, 25-HYDROXY SERUM Specimen Type: SE RUM Comment: The listed sex of this patient may not be a typical indication for this test. Therefore, reference ranges or interpretive criteria listed may not be valid. Clinical correlation suggested. Ordering Provider: SUKHJINDER GLEZ Report Released Date/Time: Oct 04, 2024 10:09 AM Reporting Lab: [address] [address] Performing Lab: [address] [address] VITAMIN D, 25-HYDROXY 40.1 ng/mL 30-96 Oct 04, 2024 12:48 PM [facility] TEST URINE (MA-STL) URINE Specimen Type: URINE No comment entered. Ordering Provider: SUKHJINDER GLEZ Report Released Date/Time: Oct 04, 2024 10:11 AM Reporting Lab: [address] [address] Performing Lab: [facility] [address] [facility] [address] Qualitative Test NEG NEGAT BRIANNE Oct 04, 2024 12:48 PM [facility] HCG QUANT SERUM Specimen Type: SERUM Comment: The listed sex of this patient may not be a typical indication for this test. Therefore, reference ranges or interpretive criteria listed may not be valid. Clinical correlation suggested. Ordering Provider: SUKHJINDER GLEZ Report Released Date/Time: Oct 04, 2024 10:11 AM Reporting Lab: [facility] [address] [facility] [address] Performing Lab: [address] [address] HCG QUANT <1.20 m[IU]/mL 0-5 Oct 04, 2024 12:48 PM [facility] COMPREHENSIVE METABOLIC PANEL PLASMA Specimen Type: PLASMA Comment: No hemolysis noted. Ordering Provider: SUKHJINDER GLEZ Report Released Date/Time: Oct 04, 2024 10:09 AM Reporting Lab: [facility] [address] [facility] [address] Performing Lab: [facility] [address] [facility] [address] CREATININE 0.59 mg/dL L 0.6-1.1 UREA NITROGEN [...] Height Weight Body Mass Index Source Oct 31, 2024 03:16 PM 98.2 78 121/82 16 99 6 66 162.1 26 [facility] Social History: Smoking Status (Most current) and Tobacco Use (All prior to encounter date) This section includes the most current, and the historical, smoking and tobacco- related health factors from the [place] facility where the Encounter took place. Current Smoking Status This section includes the most current smoking, or tobacco-related health factor, from the [place] facility where the Encounter took place. Date/Time Current Smoking Status Comment Facil ity Jul 31, 2023 02:36 AM ORYX ADMIT TOBACCO SCREEN YES [facility] Tobacco Use History This section includes a history of the smoking, or tobacco-related health factors, that were collected on or before the date of the Encounter. The data comes from the [place] facility where the Encounter took place. Date/Time Smoking Status/Tobacco Use Comment F acility Jul 31, 2023 02:36 AM ORYX ADMIT TOBACCO USE CIGS GR 5D [facility] Jul 31, 2023 02:36 AM ORYX DAILY TOBACCO PROFESSOR IN FAMILY STUDIES REFUSED [facility] Jul 31, 2023 02:36 AM ORYX DAILY TOBACCO MEDS REFUSED [facility] Radiology Reports: +/- 30 days [...] the Encounter. The data comes from all [place] treatment facilities. Date/Time Radiology Report Provider Source Nov 22, 2024 01:[address] ABD PEL W/CONT & 3D: LASHELL KERR [id number] -[id number] F Exm Date: NOV 22, 2024@13:04 Req Phys: POLLY TAMAYO Loc: [facility]-VASCULAR SURG II (Req'g Loc Img Loc: [facility]CT IMAGING [facility] Service: Unknown Screen: Patient answered no [facility] [address] [place] [address] (Case [id number] COMPLETE) CT ABDOMEN AND PELVIS W/CONTRAST (CT Detailed) CPT:29381 Contrast Media : Non-ionic Iodinated Reason for [...] 25, 2024 Date Verified: NOV 25, 2024 Service Bar Cashier E-Sig:/ES/SHEELA NOBLE MD Report: Spiral axial imaging [...] Primary Interpreting Staff: SHEELA NOBLE MD, Radiologist (Service Bar Cashier) /SHEELA DOSHI [facility] Nov 15, 2024 06:38 AM FLUOROS(SEPARATE PROCEDURE),UP TO 1 HOUR: LASHELL KERR [id number] -1995 F Exm Date: NOV 15, 2024@06:38 Req Phys: KWESI GONZALES Pat Loc: OP Unknown/11-18-2024@12:32 Img Loc: [facility]-MAIN RADIOLOGY SUITE Service: Unknown Screen: Patient answered no [facility], [facility] [address] [place] [address] (Case [id number] COMPLETE) FLUOROS(SEPARATE PROCEDURE),UP TO(RAD Detailed) CPT:62560 CPT Modifiers : TC TECHNICAL COMPONENT Reason for Study: venogram Clinical History: Report Status: Verified Date Reported: NOV 18, 2024 Date Verified: NOV 18, 2024 Service Bar Cashier E-Sig: Report: Fluoroscopy was provided to another [...] Interpreting Staff: SHERLYN TAYLOR, RADIOLOGIST Verified by inserting machine operator for SHERLYN TAYLOR /ANDREW TAYLORSHERLYN [facility] Pathology Reports: +/- 30 days of [...] the Encounter. The data comes from all [place] treatment facilities. Date/Time Pathology Report Provider Source Oct 04, 2024 12:48 PM LR MICROBIOLOGY RE PORT: Accession [UID]: [id number] [[id number]] Received: Oct 04, 2024@17:34 Collection sample: URINE,CLEAN CATCH Collection date: Oct 04, 2024 12:48 Site/Specimen: URINE Provider: SUKHJINDER GLEZ Test(s) ordered: C&S URINE..................... completed: Oct 06, 2024 13:33 * BACTERIOLOGY FINAL REPORT => Oct 06, 2024 14:23 TECH CODE: [id number] Bacteriology Remark(s): 10/06/24 CULTURE SHOWS NO GROWTH IN 1 DAY. =--=--=--=--=--=--=--=--=--=--=-- =--=--=--=--=--=--=--=--=--=--=-- =--=--=--=-- Performing Laboratory: Bacteriology Report Performed By: [facility] [address] [facility] CLIA# [id number] [address] [facility] [address] [place] [address] PAMELA HICKS [facility] Encounter Notes: All associated encounter notes This section contains the clinical notes associated to the Encounter. Date/Time Encounter Note(s) Provider Source Nov 26, 2024 03:10 PM ADDENDUM: LOCAL TITLE: Addendum STANDARD TITLE: ADDENDUM DATE OF NOTE: NOV 26, 2024@15:10:07 ENTRY DATE: NOV 26, 2024@15:10:08 AUTHOR: KWESI GONZALES EXP COSIGNER: URGENCY: STATUS: COMPLETED I reviewed CVt from 11/22/2024. the finding of left renal vein dialation and ? of nutcrcjer syndrome is not evident on this most recent cT/ pressure gradient is border line with mean of 3 mmgh.therefore I do not recommend intervention. further management as per Urology recommendations. cc: dr Glez cc: dr Narayanan /astrid/ KWESI GONZALES Staff Physician, Vascular Surgery Signed: 11/26/2024 15:13 Receipt Acknowledged By: 11/27/2024 15:09 /astrid/ SUKHJINDER GLEZ MD STAFF PHYSICIAN 11/30/2024 10:34 /astrid/ CAIO NARAYANAN MD Staff Physician, Urology --- Original Document --- 10/31/24 VASCULAR SURGERY II NOTE STL: HPI: Lashell Kerr is a 29 year old female with PMHx chronic back pain and left UPJ s/p pyleoplasty (2019) presenting with recurrent left flank pain. Patient was incidentally found to have left hydronephrosis during workup of back injury with MRI in 2018. She was initialy treated with nephrostomy tube complicated by multiple infections and ultimately underwent pyeloplasty with urology in 2019 for left uretropelvic junction obstruction. She has continued to have left flank pain. Lasix renal scan was negative for obstruction and had 50/[address] scan done in 2022 reavealed dilated left renal vein distal to SMA and aorta and she was subsequently referred to vascular surgery for futher workup of pain. She reports intermittent, sharp, stabbling left flank pain unrelated to any particular activity. Symptoms occur several times a day for several years. When the pain is severe, light touch and pressure exacerbate the pain. She denies change in BM, dysuria, hematuria, or abdominal pain. 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 left flank pain with prior nephrostomy tube scar well healed with no signs of infection however tenderness to palpation Pulses: 2+ radial bilaterlaly MSK: extremities x4 WWP, non-edematous Psych: appropriate mood and affect LABS: CHEM 7: SODIUM 137 mEq/L 10/04/2024 12:48 POTASSIUM 4.1 mEq/L 10/04/2024 12:48 CHLORIDE 105 mEq/L 10/04/2024 12:48 UREA NITROGEN 7.5 L mg/dL 10/04/2024 12:48 CREATININE 0.59 L mg/dL 10/04/2024 12:48 CALCIUM 9.0 mg/dL 10/04/2024 12:48 CARBON DIOXIDE 23 mEq/L 10/04/2024 12:48 GLUCOSE 94 mg/dL 10/04/2024 12:48 EGFR (CKD-EPI 2020) 124.3 10/04/2024 12:48 WBC: 8.4 10*3/uL (10/04/24 12:48) HGB: HGB 12.8 g/dL 10/04/2024 12:48 HCT: 38.7 % (10/04/24 12:48) PLATELETS: PLT 291 10*3/uL 10/04/2024 12:48 IMAGING: Impression for CT ABDOMEN AND PELVIS W/CONTRAST, 07/30/23, case 83 1. Moderate unilateral left hydronephrosis. There appears be mild asymmetric left renal atrophy with multifocal areas of apparent left renal cortical scarring. The proximal left and mid left ureter are not dilated, distal left ureter clearly visualized secondary to patient body habitus.. No definite stone identified along the expected course of the left ureter. Findings suggest indeterminate left-sided obstruction region of the ureteropelvic junction, etiology unclear, recommend urology consultation and CT nonemergent CT urogram to further evaluate included for indeterminate ureteral stricturing and to help exclude any indeterminate urothelial lesion. 2. Additionally somewhat prominent appearance of the left renal vein with prominent focal narrowing as it courses between the abdominal aorta and SMA, as it can be seen in setting of nutcracker syndrome. 3. Tiny punctate nonobstructing left renal stone. 4. Incompletely evaluated on gynecological pelvic findings as above could be further assessed with a nonemergent ultrasound as clinically warranted. Finding. Trace nonspecific free fluid in the pelvis. Other findings as above, please see the body of the report. READING PHYSICIAN: Gideon Lopez M.D. -[id number] 07/30/2023 16:27 [facility] [employer] [phone] (For Medical Practitioner Use Only) Attention Patients / Veterans: If you have questions or concerns about these test results, please contact your ordering provider or primary care team. Impression for US ABDOMEN COMPLETE REDUCE SERVICE, 01/30/23, case 667 Mildly increased liver echogenicity may represent mild degree of hepatic steatosis. No evidence of gallbladder disease or biliary ductal dilation. Normal sonographic evaluation of the kidneys. 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 Most recent CT images from 2022 reviewed with some dilation of left renal vein which could be physiologic. Labs done 09/2024 without evidence of proteinuria. Discussed etiology and symptoms of nutcracker syndrome and potential intervention. First step would be to prove that there is a pressure difference between left renal vein and IVC before any definitive procedure. Also discussed that there is no guarantee that these findings are causing symptoms. At this time, will start with diagnostic venogram and repeat CT prior to discussing invasive intervention. Discussed risks/benefits/alternatives to venogram and patient is agreeable to proceed. - Obtain repeat CT Abdomen/Pelvis with contrast (CT venogram) - Will schedule patient for left renal venogram under MAC. Will attempt to schedule patient as 1st start on a Monday due to her work schedule /astrid/ POLLY TAMAYO RESIDENT PHYSICIAN Signed: 10/31/2024 15:53 /astrid/ KWESI GONZALES Staff Physician, Vascular Surgery Cosigned: 10/31/2024 23:03 10/31/2024 ADDENDUM STATUS: COMPLETED I agree with resident evaluation and plan Obtain repeat CT Abdomen/Pelvis with contrast (CT venogram) - Will schedule patient for left renal venogram with intravscular pressure measurements under MAC. Will attempt to schedule patient as 1st start on a Monday due to her work schedule The patient is aware of the treatment plan The patient is aware of alternatives. All questions were answered. The patient is aware of the follow up plan The patient is agreeable with the treatement and follow up plans The patient is aware to call or go to the ER if any change in clincial condition Risk factor modification as per medical team. I examined the patient. Neurologically intact cc: /astrid/ KWESI GONZALES Staff Physician, Vascular Surgery Signed: 10/31/2024 23:05 Receipt Acknowledged By: 11/06/2024 20:36 /es/ SUKHJINDER GLEZ MD STAFF PHYSICIAN KWESI GONZALESFatou VEGA [facility] Nov 15, 2024 09:21 AM OPERATIVE NOTE: LOCAL TITLE: BRIEF OP NOTE STL STANDARD TITLE: OPERATIVE NOTE DATE OF NOTE: NOV 15, 2024@09:21 ENTRY DATE: NOV 15, 2024@09:21:18 AUTHOR: KWESI GONZALES EXP COSIGNER: URGENCY: STATUS: COMPLETED BRIEF OP NOTE STL Has ADDENDA Date of Surgery:Oct Surgery Case #:[id number] Pre-Operative Diagnosis:Nutcracker syndrome left renal vein Post-Operative Diagnosis:Nutcracker syndrome left renal vein Surgery Performed:Left renal venogram and cavogram Attending:kwesi gonzales Surgeon:Milton Mace [employer] Specialist:Julianna Salazar Type of Anesthesia:MAC Specimens:No If yes, Type and number of specimens: Findings: pressure gradient of 3-4 mmgh Complications:arcenio Estimated Blood Loss:minimal Blood Given? No If yes, how much? Fluid Replacement:as per anesthesia records Status En-Route to PACU? Critical: No Satisfactory: Yes Operative Note Dictation Job#:text /astrid/ KWESI GONZALES Staff Physician, Vascular Surgery Signed: 11/15/2024 09:24 Receipt Acknowledged By: 11/19/2024 14:54 /astrid/ SUKHJINDER GLEZ MD STAFF PHYSICIAN 11/15/2024 ADDENDUM STATUS: COMPLETED Date of Surgery:Oct Surgery Case #:[id number] Pre-Operative Diagnosis:Nutcracker syndrome left renal vein Post-Operative Diagnosis:Nutcracker syndrome left renal vein Surgery Performed:Left renal venogram and cavogram Attending surgeon:Kwesi gonzales MD Rsident Surgeon:Milton Mace MD 1[employer] Finance Specialist:Julianna MCNEIL student Type of Anesthesia:MAC Specimens:No Findings: Mean pressure gradient across left renal vein of 3-4 mmgh Complications:arcenio Estimated Blood Loss:minimal SURGERY/PROCEDURE PERFORMED: Access: Ultrasound guided access of the right jugular vein Introduction of 6 Fr sheath x 90 c, into the IVC. Abdominal cavogram Selective catheterization of the left renal vein using angled glide wire and Bernestein catheter. Cavogram an dleft renal venogram obtained Presure measurements obtained accross the left renal vein Pressure held for 10 minutes. ANESTHESIA: IV sedation. INDICATIONS FOR SURGERY/PROCEDURE: as above. risks , benefits and alternatives were discussed with the patient who understands and agrees to proceed. DESCRIPTION OF SURGERY/PROCEDURE: The patient was brought into the OR suite , The skin was prepped and draped in the usual sterile fashion. Time out was held and the patient identified. Access: Access: Ultrasound guided access of the right jugular vein Introduction of 6 Fr sheath x 90 c, into the IVC. Abdominal cavogram Selective catheterization of the left renal vein using angled glide wire and Bernestein catheter. Cavogram and left renal venogram obtained Presure measurements obtained accross the left renal vein Pressure held for 10 minutes. Completion Cavoogram was obtained . There was no IVC damage or extravastion . The patient tolerated the procedure well. supervision and interpretation: Before intervention: PAtent IVC . Diameter of IVC is 20 mm Dilated left renal vein Mean pressure gradient across left renal vein of 3-4 mmgh SPECIMENS:none SPONGE/INSTRUMENT COUNT: correct PACKS/DRAINS/CATHETERS: None. ESTIMATED BLOOD LOSS: Minimal. INTRAVENOUS FLUIDS: Minimal. COMPLICATIONS: None. 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 /astrid/ KWESI GONZALES Staff Physician, Vascular Surgery Signed: 11/15/2024 09:[address] [facility] Nov 14, 2024 10:04 PM SURGERY ATTENDING NOTE: LOCAL TITLE: ATTENDING SURGEON PREOPERATIVE STL STANDARD TITLE: SURGERY ATTENDING NOTE DATE OF NOTE: NOV 14, 2024@22:04 ENTRY DATE: NOV 14, 2024@22:05:02 AUTHOR: KWESI GONZALES EXP COSIGNER: URGENCY: STATUS: COMPLETED Surgical H&P Date of Planned Procedure: Oct Surgical H&P Dated Oct reviewed on Oct Surgical H&P completed within 30 days of planned procedure:Yes Attending Surgeon Preoperative STL completed within 24 hours of procedure? Yes Changes noted to the H&P:NO I have seen and examined the patient and agree with the H&P, assessment and plan. YES Preoperative Findings/Diagnosis: nutcracker syndrome left renal vein Plan/Procedure: left renal venogram /andre GONZALES Staff Physician, Vascular Surgery Signed: 11/14/2024 22:[address] [facility] Oct 31, 2024 11:04 PM ADDENDUM: LOCAL TITLE: Addendum STANDARD TITLE: ADDENDUM DATE OF NOTE: OCT 31, 2024@23:04:20 ENTRY DATE: OCT 31, 2024@23:04:21 AUTHOR: KWESI GONZALES EXP COSIGNER: URGENCY: STATUS: COMPLETED I agree with resident evaluation and plan Obtain repeat CT Abdomen/Pelvis with contrast (CT venogram) - Will schedule patient for left renal venogram with intravscular pressure measurements under MAC. Will attempt to schedule patient as 1st start on a Monday due to her work schedule The patient is aware of the treatment plan The patient is aware of alternatives. All questions were answered. The patient is aware of the follow up plan The patient is agreeable with the treatement and follow up plans The patient is aware to call or go to the ER if any change in clincial condition Risk factor modification as per medical team. I examined the patient. Neurologically intact cc: /andre GONZALES Staff Physician, Vascular Surgery Signed: 10/31/2024 23:05 Receipt Acknowledged By: 11/06/2024 20:36 /andre GLEZ MD STAFF PHYSICIAN --- Original Document --- 10/31/24 VASCULAR SURGERY II NOTE STL: HPI: Lashell Kerr is a 29 year old female with PMHx chronic back pain and left UPJ s/p pyleoplasty (2019) presenting with recurrent left flank pain. Patient was incidentally found to have left hydronephrosis during workup of back injury with MRI in 2018. She was initialy treated with nephrostomy tube complicated by multiple infections and ultimately underwent pyeloplasty with urology in 2019 for left uretropelvic junction obstruction. She has continued to have left flank pain. Lasix renal scan was negative for obstruction and had 50/[address] scan done in 2022 reavealed dilated left renal vein distal to SMA and aorta and she was subsequently referred to vascular surgery for futher workup of pain. She reports intermittent, sharp, stabbling left flank pain unrelated to any particular activity. Symptoms occur several times a day for several years. When the pain is severe, light touch and pressure exacerbate the pain. She denies change in BM, dysuria, hematuria, or abdominal pain. 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 left flank pain with prior nephrostomy tube scar well healed with no signs of infection however tenderness to palpation Pulses: 2+ radial bilaterlaly MSK: extremities x4 WWP, non-edematous Psych: appropriate mood and affect LABS: CHEM 7: SODIUM 137 mEq/L 10/04/2024 12:48 POTASSIUM 4.1 mEq/L 10/04/2024 12:48 CHLORIDE 105 mEq/L 10/04/2024 12:48 UREA NITROGEN 7.5 L mg/dL 10/04/2024 12:48 CREATININE 0.59 L mg/dL 10/04/2024 12:48 CALCIUM 9.0 mg/dL 10/04/2024 12:48 CARBON DIOXIDE 23 mEq/L 10/04/2024 12:48 GLUCOSE 94 mg/dL 10/04/2024 12:48 EGFR (CKD-EPI 2020) 124.3 10/04/2024 12:48 WBC: 8.4 10*3/uL (10/04/24 12:48) HGB: HGB 12.8 g/dL 10/04/2024 12:48 HCT: 38.7 % (10/04/24 12:48) PLATELETS: PLT 291 10*3/uL 10/04/2024 12:48 IMAGING: Impression for CT ABDOMEN AND PELVIS W/CONTRAST, 07/30/23, case 83 1. Moderate unilateral left hydronephrosis. There appears be mild asymmetric left renal atrophy with multifocal areas of apparent left renal cortical scarring. The proximal left and mid left ureter are not dilated, distal left ureter clearly visualized secondary to patient body habitus.. No definite stone identified along the expected course of the left ureter. Findings suggest indeterminate left-sided obstruction region of the ureteropelvic junction, etiology unclear, recommend urology consultation and CT nonemergent CT urogram to further evaluate included for indeterminate ureteral stricturing and to help exclude any indeterminate urothelial lesion. 2. Additionally somewhat prominent appearance of the left renal vein with prominent focal narrowing as it courses between the abdominal aorta and SMA, as it can be seen in setting of nutcracker syndrome. 3. Tiny punctate nonobstructing left renal stone. 4. Incompletely evaluated on gynecological pelvic findings as above could be further assessed with a nonemergent ultrasound as clinically warranted. Finding. Trace nonspecific free fluid in the pelvis. Other findings as above, please see the body of the report. READING PHYSICIAN: Gideon Lopez M.D. -[id number] 07/30/2023 16:27 [facility] [employer] [phone] (For Medical Practitioner Use Only) Attention Patients / Veterans: If you have questions or concerns about these test results, please contact your ordering provider or primary care team. Impression for US ABDOMEN COMPLETE REDUCE SERVICE, 01/30/23, case 667 Mildly increased liver echogenicity may represent mild degree of hepatic steatosis. No evidence of gallbladder disease or biliary ductal dilation. Normal sonographic evaluation of the kidneys. 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 Most recent CT images from 2022 reviewed with some dilation of left renal vein which could be physiologic. Labs done 09/2024 without evidence of proteinuria. Discussed etiology and symptoms of nutcracker syndrome and potential intervention. First step would be to prove that there is a pressure difference between left renal vein and IVC before any definitive procedure. Also discussed that there is no guarantee that these findings are causing symptoms. At this time, will start with diagnostic venogram and repeat CT prior to discussing invasive intervention. Discussed risks/benefits/alternatives to venogram and patient is agreeable to proceed. - Obtain repeat CT Abdomen/Pelvis with contrast (CT venogram) - Will schedule patient for left renal venogram under MAC. Will attempt to schedule patient as 1st start on a Monday due to her work schedule /astrid/ POLLY TAAMYO RESIDENT PHYSICIAN Signed: 10/31/2024 15:53 /astrid/ KWESI GONZALES Staff Physician, Vascular Surgery Cosigned: 10/31/2024 23:[address] [facility] Oct 31, 2024 03:43 PM SURGERY NOTE: LOCAL TITLE: VASCULAR SURGERY II NOTE STL STANDARD TITLE: SURGERY NOTE DATE OF NOTE: OCT 31, 2024@15:43 ENTRY DATE: OCT 31, 2024@15:44:03 AUTHOR: POLLY TAMAYO EXP COSIGNER: KWESI GONZALES URGENCY: STATUS: COMPLETED VASCULAR SURGERY II NOTE STL Has ADDENDA HPI: Lashell Kerr is a 29 year old female with PMHx chronic back pain and left UPJ s/p pyleoplasty (2019) presenting with recurrent left flank pain. Patient was incidentally found to have left hydronephrosis during workup of back injury with MRI in 2018. She was initialy treated with nephrostomy tube complicated by multiple infections and ultimately underwent pyeloplasty with urology in 2019 for left uretropelvic junction obstruction. She has continued to have left flank pain. Lasix renal scan was negative for obstruction and had 50/[address] scan done in 2022 reavealed dilated left renal vein distal to SMA and aorta and she was subsequently referred to vascular surgery for futher workup of pain. She reports intermittent, sharp, stabbling left flank pain unrelated to any particular activity. Symptoms occur several times a day for several years. When the pain is severe, light touch and pressure exacerbate the pain. She denies change in BM, dysuria, hematuria, or abdominal pain. 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 left flank pain with prior nephrostomy tube scar well healed with no signs of infection however tenderness to palpation Pulses: 2+ radial bilaterlaly MSK: extremities x4 WWP, non-edematous Psych: appropriate mood and affect LABS: CHEM 7: SODIUM 137 mEq/L 10/04/2024 12:48 POTASSIUM 4.1 mEq/L 10/04/2024 12:48 CHLORIDE 105 mEq/L 10/04/2024 12:48 UREA NITROGEN 7.5 L mg/dL 10/04/2024 12:48 CREATININE 0.59 L mg/dL 10/04/2024 12:48 CALCIUM 9.0 mg/dL 10/04/2024 12:48 CARBON DIOXIDE 23 mEq/L 10/04/2024 12:48 GLUCOSE 94 mg/dL 10/04/2024 12:48 EGFR (CKD-EPI 2020) 124.3 10/04/2024 12:48 WBC: 8.4 10*3/uL (10/04/24 12:48) HGB: HGB 12.8 g/dL 10/04/2024 12:48 HCT: 38.7 % (10/04/24 12:48) PLATELETS: PLT 291 10*3/uL 10/04/2024 12:48 IMAGING: Impression for CT ABDOMEN AND PELVIS W/CONTRAST, 07/30/23, case 83 1. Moderate unilateral left hydronephrosis. There appears be mild asymmetric left renal atrophy with multifocal areas of apparent left renal cortical scarring. The proximal left and mid left ureter are not dilated, distal left ureter clearly visualized secondary to patient body habitus.. No definite stone identified along the expected course of the left ureter. Findings suggest indeterminate left-sided obstruction region of the ureteropelvic junction, etiology unclear, recommend urology consultation and CT nonemergent CT urogram to further evaluate included for indeterminate ureteral stricturing and to help exclude any indeterminate urothelial lesion. 2. Additionally somewhat prominent appearance of the left renal vein with prominent focal narrowing as it courses between the abdominal aorta and SMA, as it can be seen in setting of nutcracker syndrome. 3. Tiny punctate nonobstructing left renal stone. 4. Incompletely evaluated on gynecological pelvic findings as above could be further assessed with a nonemergent ultrasound as clinically warranted. Finding. Trace nonspecific free fluid in the pelvis. Other findings as above, please see the body of the report. READING PHYSICIAN: Gideon Lopez M.D. -[id number] 07/30/2023 16:27 [facility] National [employer] Program [phone] (For Medical Practitioner Use Only) Attention Patients / Veterans: If you have questions or concerns about these test results, please contact your ordering provider or primary care team. Impression for US ABDOMEN COMPLETE REDUCE SERVICE, 01/30/23, case 667 Mildly increased liver echogenicity may represent mild degree of hepatic steatosis. No evidence of gallbladder disease or biliary ductal dilation. Normal sonographic evaluation of the kidneys. 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 Most recent CT images from 2022 reviewed with some dilation of left renal vein which could be physiologic. Labs done 09/2024 without evidence of proteinuria. Discussed etiology and symptoms of nutcracker syndrome and potential intervention. First step would be to prove that there is a pressure difference between left renal vein and IVC before any definitive procedure. Also discussed that there is no guarantee that these findings are causing symptoms. At this time, will start with diagnostic venogram and repeat CT prior to discussing invasive intervention. Discussed risks/benefits/alternatives to venogram and patient is agreeable to proceed. - Obtain repeat CT Abdomen/Pelvis with contrast (CT venogram) - Will schedule patient for left renal venogram under MAC. Will attempt to schedule patient as 1st start on a Monday due to her work schedule /astrid/ POLLY TAMAYO RESIDENT PHYSICIAN Signed: 10/31/2024 15:53 /astrid/ KWESI GONZALES Staff Physician, Vascular Surgery Cosigned: 10/31/2024 23:03 10/31/2024 ADDENDUM STATUS: COMPLETED I agree with resident evaluation and plan Obtain repeat CT Abdomen/Pelvis with contrast (CT venogram) - Will schedule patient for left renal venogram with intravscular pressure measurements under MAC. Will attempt to schedule patient as 1st start on a Monday due to her work schedule The patient is aware of the treatment plan The patient is aware of alternatives. All questions were answered. The patient is aware of the follow up plan The patient is agreeable with the treatement and follow up plans The patient is aware to call or go to the ER if any change in clincial condition Risk factor modification as per medical team. I examined the patient. Neurologically intact cc: /andre GONZALES Staff Physician, Vascular Surgery Signed: 10/31/2024 23:05 Receipt Acknowledged By: 11/06/2024 20:36 /andre GLEZ MD STAFF PHYSICIAN 11/26/2024 ADDENDUM STATUS: COMPLETED I reviewed CVt from 11/22/2024. the finding of left renal vein dialation and ? of nutcrcjer syndrome is not evident on this most recent cT/ pressure gradient is border line with mean of 3 mmgh.therefore I do not recommend intervention. further management as per Urology recommendations. cc: dr Glez cc: dr Narayanan /astrid/ KWESI GONZALES Staff Physician, Vascular Surgery Signed: 11/26/2024 15:13 Receipt Acknowledged By: * AWAITING SIGNATURE * SUKHJINDER GLEZ * AWAITING SIGNATURE * CAIO NARAYANAN SHRUT[facility] Oct 31, 2024 03:40 PM SURGERY NOTE: LOCAL TITLE: PABLO FRAILTY TOOL STANDARD TITLE: SURGERY NOTE DATE OF NOTE: OCT 31, 2024@15:40 ENTRY DATE: OCT 31, 2024@15:40:13 AUTHOR: ANTONIO DAVALOS EXP COSIGNER: URGENCY: STATUS: COMPLETED FRAILTY CALCULATION: Risk Analysis Index (PABLO) score is: Score: 14 CALCULATED SCORE Variable Score Sex: 0 Cancer Status: No Weight Loss: 0 Poor Appetite: 0 Renal Insufficiency: 8 Chronic/Congestive Heart Failure: 0 Shortness of Breath: 0 Dependent Livin Cognitive Decline: No ADL*Cognitive Decline: 0 Mobility: Can get around without any help Eating: Can plan and prepare his/her own meals Toileting: Can use the toilet without help Personal Hygiene: Can shower or bathe without prompting or help PABLO Score: 14 /es/ ANTONIO JENKINS RN REGISTERED NURSE Signed: 11/01/2024 07:[address] [facility]
--- OUTSIDE RECORDS SUMMARY | 2024-12-29 19:21 | XMS_ITS | Referral Summary ---
Author Organization [facility] Address [address] [place] [address] Care Team Providers Care Clinical Account Specialist Name Role Phone No, Physician Primary Care Provider [phone] Allergies Active Allergy Reactions Criticality Noted Date [...] on file Sexual Orientation Not on file Last Filed Vital Signs Vital Sign Reading Time Taken Comments Blood Pressure 100/52 10/19/2023 3:07 PM [facility] Pulse 86 10/19/2023 3:07 PM [facility] Temperature 36.4 C (97.5 F) 10/19/2023 3:07 PM [facility] Respiratory Rate 16 10/19/2023 3:07 PM [facility] Oxygen Saturation 98% 10/19/2023 3:07 PM [facility] Inhaled Oxygen Concentration - - Weight 71.7 kg (158 lb) 10/19/2023 3:07 PM [facility] Height 167.6 cm (5' 6 ) 10/19/2023 3:07 PM [facility] Body Mass Index 25.5 10/19/2023 3:07 PM [facility] Plan of Treatment Not on file Insurance [facility] CLAIMS Care Teams Clinical Account Specialist Relationship Specialty Start Date End Date No, Physician PCP - General 09/06/23
--- OUTSIDE RECORDS SUMMARY | 2024-12-29 19:21 | XMS_ITS | Continuity of Care Document ---
Author Name [facility] Organization [facility] Care Team Providers Care Banana Expert Name Role Phone [facility] Unavailable Unavailable Problems Combined list of problems from Department of Defense and Veterans Affairs facilities. It does not include entries that were removed or entered in error. 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 [facility] [place] Continuous dependence on cigarette smoking Active Condition [facility] [facility] Hydronephrosis Active Condition [facility] [place] [facility] Hypermetropia Active Condition [facility] [place] Impaired fasting glucose Active Condition [facility] [place] [facility] Long-term current use of hormonal contraceptive Active Condition [facility] [place] [facility] Mixed hyperlipidemia Active Condition [facility] [place] [facility] Neck pain Active Condition [facility] [place] [facility] Nicotine dependence Active Condition [facility] [place] [facility] Patient overweight Active Condition [facility] [place] [facility] Simple goiter Active Condition [facility] [place] [facility] Dry eye syndrome of unspecified lacrimal gland Active Condition [facility] [place] [facility] Vitamin D deficiency Active Condition [facility] [facility] Anxiety (SCT 25150702) Active Condition [facility] Cervical pain Active Condition [facility] Hydronephrosis Active Condition Jul 192022 Entered By: SUKHJINDER GLEZ Comment: left ureter w pyelonephritis. 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 - Low back pain Active Condition [facility] Liver enzymes level above reference range Active Condition [facility] Low back pain Active Condition [facility] Low Back Pain (SCT 373552518) Active Condition [facility] Overweight Active Condition [facility] Patient Overweight (SCT 922408819) Active Condition 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, 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 Entered By: ADELAIDE CERDA Comment: Deployments: [facility] 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 Active Diagnosis [facility] Diagnosis: ICD-10-CM Z01.818 Encounter for other preprocedural examination Active Diagnosis [facility] Diagnosis: ICD-10-CM M54.50 Low back pain, unspecified Active Diagnosis [facility] Diagnosis: ICD-10-CM F41.9 Anxiety disorder, unspecified Active Diagnosis [facility] Diagnosis: ICD-10-CM J01.10 Acute frontal sinusitis, unspecified Active Diagnosis [facility] Diagnosis: ICD-10-CM N13.30 Unspecified hydronephrosis Active Diagnosis [facility] Diagnosis: ICD-10-CM Z72.0 Tobacco use Active Diagnosis [facility] Diagnosis: ICD-10-CM N39.498 Other specified urinary incontinence Active Diagnosis [facility] Diagnosis: ICD-10-CM F41.1 Generalized anxiety disorder Active Diagnosis [facility] Diagnosis: ICD-10-CM J20.9 Acute bronchitis, unspecified Active Diagnosis [facility] Diagnosis: ICD-10-CM N76.0 Acute vaginitis Active Diagnosis [facility] Diagnosis: ICD-10-CM Z12.4 Encounter for screening for malignant neoplasm of cervix Active Diagnosis [facility] Diagnosis: ICD-10-CM J10.1 Flu due to oth ident influenza virus w oth resp manifest Active Diagnosis [facility] Admit Reason: HYDRONEPHROSIS Active Diagnosis [facility] Diagnosis: ICD-10-CM R10.9 Unspecified abdominal pain Active Diagnosis [facility] Medications Combined list of outpatient medications from Department of Defense and [facility] Affairs facilities.Medications provided include 1) outpatient medications from the last 15 months, and 2) patient-reported medications. Medication Details Route Status Patient Instructions Prescription Expires Prescription Number Last Dispense Date Ordering Provider Order Date Order Qty Source acetaminoph en 325 mg oral tablet 2 tab(s), Oral, every 4 hr, PRN pain or fever, # 24 tab(s), 0 total refill(s ), [facility], Pharmacy : [facility] Oral (given by mouth) Ordered 3 2022 24.0 [facility]89A[facility] acetaminoph en 325 mg oral tablet 2 tab(s), Oral, every 6 hr, PRN pain or fever, # 50 tab(s), 0 total refill(s ), [facility] Oral (given by mouth) Ordered 2 2021 50.0 0089A-[facility] ALPRAZOLAM 0.25MG TAB TAKE ONE TABLET BY MOUTH THREE TIMES A DAY NEEDED ORAL 10/06/2024 [id number] SUKHJINDER GLEZ 2023 30 [facility] BENZONATATE 100MG CAP TAKE 1 CAPSULE BY MOUTH THREE TIMES A DAY NEEDED ORAL ACTIVE ABEL RITTER 2023 [facility] BENZONATATE 100MG CAP TAKE 1 CAPSULE BY MOUTH THREE TIMES A DAY NEEDED ORAL ACTIVE DOMINICK SMALLWOOD 2024 [facility] Chantix 1 mg oral tablet See Instruct ions, Oral, take one-half tablet by mouth every day for 3 days, then take one-half tablet twice a day for 4 days, then take one tablet twice a day to help quit smoking. , # 46 tab(s), 0 total refill(s ), Julia briseno, 28 days, Pharmacy : [facility] Oral (given by mouth) Ordered 2021 46.0 [facility]89C-[facility] Ciprodex 0.3%-0.1% otic suspension 4 drop(s), Ear-Left , BID, X 3 days, # 7.5 mL, 0 total refill(s ), Acute, Pharmacy : [facility] Left ear Complet ed 05/19/2022 2 2021 7.5 0089C-A [facility] DICLOFENAC NA 75MG TAB,EC TAKE ONE TABLET BY MOUTH EVERY MORNING AND EVENING FOR PAIN - TAKE WITH FOOD ORAL ACTIVE 01/22/2025 [id number] SUKHJINDER GLEZ 2023 60 [facility] DOXYCYCLINE HYCLATE 100MG TAB TAKE ONE TABLET BY MOUTH TWICE A DAY ORAL ACTIVE ABEL RITTER 2023 [facility] DOXYCYCLINE HYCLATE 100MG TAB TAKE ONE TABLET BY MOUTH TWICE A DAY ORAL ACTIVE DODOMINICK C 2024 [facility] ETHINYL ESTRADIOL 0.035MG/NOR GESTIMATE TRIPHASIC TAB,28 TAKE 1 TABLET BY MOUTH ONCE A DAY FOR CONTROL ORAL ACTIVE 08/24/2025 [id number] SUKHJINDER GLEZ 2023 1 [facility] ETHINYL ESTRADIOL 0.035MG/NOR GESTIMATE TRIPHASIC TAB,28 TAKE 1 TABLET BY MOUTH ONCE A DAY FOR CONTROL ORAL DISCONT INUED 02/28/2025 [id number] SUKHJINDER GLEZ 2023 1 [facility] ETHINYL ESTRADIOL 0.035MG/NOR GESTIMATE TRIPHASIC TAB,28 TAKE 1 TABLET BY MOUTH ONCE A DAY ORAL DISCONT INUED 11/10/2024 [id number] GREG RUDD 2023 1 [facility] ETHINYL ESTRADIOL 0.035MG/NOR GESTIMATE TRIPHASIC TAB,28 TAKE 1 TABLET BY MOUTH ONCE A DAY FOR CONTROL ORAL DISCONT INUED (EDIT) 08/17/2024 [id number] SUKHJINDER GLEZ 2022 1 [facility] FLUCONAZOLE 150MG TAB TAKE ONE TABLET BY MOUTH EVERY 72 HOURS FOR FUNGAL INFECTIO N ORAL 01/10/2024 [id number] TIFFANI WHITESIDE 2023 2 [facility] FLUCONAZOLE 150MG TAB TAKE ONE TABLET BY MOUTH EVERY 72 HOURS NEEDED ORAL ACTIVE DOMINICK SMALLWOOD 2024 [facility] fluorometho lone 0.1% ophthalmic suspension fluorome tholone 0.1% ophthalm ic suspensi on Start Date: 01/28/21 Stop Date: 05/16/22 Status: Complete d Repeat number: 1 Complet ed 05/16/20222021 No Facilit y Access ibuprofen 800 mg oral tablet ibuprofe n 800 mg oral tablet Start Date: 11/10/20 Stop Date: 05/30/22 Status: Complete d Repeat number: 1 Complet ed 05/30/20222021 No Facilit y Access LIDOCAINE 5% PATCH APPLY 1 PATCH TO SKIN SITE ONCE A DAY APPLY PATCH AND PRESS FIRMLY FOR 10-15 SECONDS. KEEP ON FOR 12 HOURS THEN REMOVE PATCH FOR 12 HOURS. TRANSD ERMAL ACTIVE 01/22/2025 [id number] SUKHJINDER GLEZ 2023 30 [facility] Macrobid 100 mg oral capsule 1 cap(s), Oral, BID, X 5 days, # 10 cap(s), 0 total refill(s ), Acute, 06/04/22 10:43:00 AM CDT, Pharmacy : [facility] Oral (given by mouth) Complet ed 06/04/2022 2 2021 10.0 0089A-A [place] METHOCARBAM OL 500MG TAB TAKE 1 TABLET BY MOUTH FOUR TIMES A DAY NEEDED FOR MUSCLE SPASM ORAL ACTIVE 01/22/2025 [id number] 5 SUKHJINDER GLEZ 2023 120 [facility] METRONIDAZO LE 500MG TAB TAKE ONE TABLET BY MOUTH TWICE A DAY TAKE UNTIL GONE UNLESS OTHERWIS E DIRECTED . AVOID ALCOHOL DURING USE AND FOR AT LEAST 3 DAYS AFTER DISCONTI NUATION. ORAL 01/10/2024 [id number] TIFFANI WHITESIDE 2023 14 [facility] MOMETASONE FUROATE 220MCG/INHL INHL,ORAL,6 0 INHALE 1 PUFF BY ORAL INHALATI ON EVERY EVENING RESPIR ATORY (INHAL ATION) ACTIVE RIYA,ABEL WN L 2023 [facility] Pyridium 100 mg oral tablet 1 tab(s), Oral, TID(PC), X 2 days, # 6 tab(s), 0 total refill(s ), Acute, Pharmacy : [facility] Oral (given by mouth) Complet ed 10/07/2022 3 2022 6.0 0089A-[facility] [place] Pyridium 200 mg oral tablet 1 tab(s), Oral, TID(PC), # 6 tab(s), 0 total refill(s ), Maintena are, Pharmacy : [facility] Oral (given by mouth) Discont inued 07/07/2022 2 2021 6.0 0089A-A [employer] [place] [facility] ophthalmic solution 1 drop(s), Eye-Both , BID, PRN dry eyes, # 30 mL, 1 total refill(s ), Maintena are, Pharmacy : [facility] Both eyes Ordered 11/12/2022 2 2021 30.0 0089C-A [employer] [place] [facility] Dry Eye Therapy ophthalmic solution 1 drop(s), Eye-Both , BID, PRN dry eyes, # 30 mL, 2 total refill(s ), Hard Stop, Pharmacy : [facility] Both eyes Complet ed 05/16/20222021 30.0 0089C-[facility] SERTRALINE HCL 50MG TAB TAKE ONE TABLET BY MOUTH EVERY MORNING FOR 30 DAYS, THEN TAKE ONE AND ONE-HALF TABLETS EVERY MORNING FOR 60 DAYS ORAL 12/05/2024 [id number] SUKHJINDER GLEZ 2023 120 [facility] tranexamic acid 650 mg oral tablet 2 tab(s), Oral, BID, # 12 tab(s), 0 total refill(s ), Maintena nce, Pharmacy : [facility] Oral (given by mouth) Complet ed 05/16/2022 2 2021 12.0 0089A-A [facility] [facility] oral tablet 1 tab(s), Oral, Daily, # 84 tab(s), 4 total refill(s ), Julia [facility], Pharmacy : [facility] Oral (given by mouth) Complet ed 05/16/2022 2 2021 84.0 0089C-[facility] Allergies, Adverse Reactions, Alerts Combined list of allergies from Department of Defense and Veterans Affairs facilities. It does not include entries that were removed or entered in error. Substance Category Reaction Severity Reaction type Status Date Reported Comments Source CEPHALOSPORI N 1ST GENERATION Propensity to adverse reactions to drug (finding) Anaphylaxis active 1 DURGA FERMIN [facility] CEPHALOSPORI N 1ST GENERATION Propensity to adverse reactions to drug (finding) Angioedema of tongue active 3 [facility] cephalospori ns Drug allergy Dyspnea Moderate Active Ambulato ry Pharmacy Immunizations Combined list of available immunizations from the Department of Defense and Veterans Affairs facilities. Immunization Series Date Given Administered By Site Reaction Lot Number CVX Code Drug Senior Technical Analyst Status Comments Source INFLUENZA, UNSPECIFIED FORMULATION 2022 88 complet ed HISTORICA L INFORMATI ON - SOURCE UNSPECIFI [facility] COVID Vaccine Pfizer 2020 zJenniferef t Arm [id number] PFIZER complet ed COVID Vaccine Pfizer 05/06/21 Given Ambulat ory Pharmac y COVID-19 (PFIZER), MRNA, LNP-S, PF, 30 MCG/0.3 ML DOSE 2 2020 208 [facility] ed [facility] COVID Vaccine Pfizer 2020 zzLef t Arm [id number] PFIZER complet ed COVID Vaccine Pfizer 04/15/21 Given Ambulat ory Pharmac y COVID-19 (PFIZER), MRNA, LNP-S, PF, 30 MCG/0.3 ML DOSE 1 2020 208 complet ed [facility] Hep A, ped/adol, 2 dose 2020 zzLef t Arm [id number] GlaxoSmithKli ne complet ed Hep A, ped/adol, 2 dose 11/13/20 Given Ambulat ory Pharmac y tetanus, diphtheria, acellular pertu is 2018 zzLef t Arm [id number] GlaxoSmithKli ne complet ed tetanus, diphtheri a, acellular pertussis 09/02/19 Given Ambulat ory Pharmac y TDAP 2018 115 complet ed YAYA TEIXEIRA [facility] anthrax vaccine 2018 [id number] [employer] complet ed anthrax vaccine 01/28/19 Given Ambulat ory Pharmac y TDAP 2018 115 complet ed [facility] influenza, injectable, quadrivalent 2017 [id number] Seqirus complet ed influenza , injectabl e, quadrival ent 07/16/18 Given Ambulat ory Pharmac y anthrax vaccine 2017 zPuma marrero Arm [id number] Unknown complet ed anthrax vaccine 01/25/18 Given Ambulat ory Pharmac y typhoid Vi capsular polysaccharid e vac 2017 zzLef t Arm [id number] sanofi pasteur complet ed typhoid Vi capsular polysacch aride vac 01/25/18 Given Ambulat ory Pharmac y influenza, injectable, quadrivalent 2016 [id number] Seqirus complet ed influenza , injectabl e, quadrival ent 08/25/17 Given Ambulat ory Pharmac y Influenza, inj, MDCK, quadrivalent- pf 2016 [id number] Seqirus complet ed Influenza , inj, MDCK, quadrival ent-pf 06/28/17 Given Ambulat ory Pharmac y hepatitis B adult vaccine 2016 [id number] GlaxoSmithKli ne complet ed hepatitis B adult vaccine 06/28/17 Given Ambulat ory Pharmac y hepatitis B adult vaccine 2016 [id number] GlaxoSmithKli ne complet ed hepatitis B adult vaccine 01/16/17 Given Ambulat ory Pharmac y tetanus, diphtheria, acellular pertu is 2016 [id number] 115 GlaxoSmithKli ne complet ed tetanus, diphtheri a, acellular pertussis 12/15/16 Given Ambulat ory Pharmac y meningococcal A,C,Y,W-135 (MCV4P) 2016 [id number] 114 sanofi pasteur complet ed meningoco ccal A,C,Y,W-1 35 (MCV4P) 12/15/16 Given Ambulat ory Pharmac y influenza, seasonal, injectable-pf 2016 [id number] CSL Behring complet ed influenza , seasonal, injectabl e-pf 12/15/16 Given Ambulat ory Pharmac y adenovirus vaccine, live 2016 [id number] 143 Teva Pharmaceutica ls complet ed adenoviru s vaccine, live 12/15/16 Given Ambulat ory Pharmac y hepatitis B adult vaccine 2016 [id number] TuTanda ne complet ed hepatitis B adult vaccine 12/15/16 Given Ambulat ory Pharmac y poliovirus vaccine, inactivated 2016 [id number] 10 sanofi pasteur complet ed polioviru s vaccine, inactivat ed 12/15/16 Given Ambulat ory Pharmac y Results Combined list of recent chemistry, hematology and other laboratory results from Department of Defense and Veterans Affairs, ranging from 15 months to all on record, depending upon the facility. Order Name Results Value Reference Range Date Interpretation Specimen Comments Source I-STAT, CREAT (STL-HI) CREATININE [MASS/VOLU ME] IN BLOOD 0.8 mg/dL 0.7 - 1.3 11/22 Specimen Type: BLOOD Comment: Test Performed by: [id number] Meter #: [id number] Ordering Provider: Florin GLEZ Report Released Date/Time: Nov 22, 2024 03:22 PM Reporting Lab: [facility] [address] [facility] [address] Performing Lab: [facility] [address] [address] [facility] POC CLINITES T HCG CHORIOGONA DOTROPIN ( TEST) [PRESENCE] IN URINE BY RAPID IMMUNOASSA Y Negative 11/15 Specimen Type: URINE Comment: Test Performed by: [id number] Meter #: [id number] Ordering Provider: JANN ARDON Report Released Date/Time: Nov 15, 2024 06:26 AM Reporting Lab: [facility] [address] [facility] [address] Performing Lab: [place] [address] [address] [facility] LIPID PANEL (STL) CHOLESTERO L [MASS/VOLU ME] IN SERUM OR PLASMA 181 mg/dL 0 - 200 10/04 Specimen Type: PLASMA Comment: No hemolysis noted. Ordering Provider: Florin GLEZ Report Released Date/Time: Oct 04, 2024 10:09 AM Reporting Lab: [place] [address] [address] Performing Lab: [place] [address] [address] [facility] LIPID PANEL (STL) TRIGLYCERI DE [MASS/VOLU ME] IN SERUM OR PLASMA 85 mg/dL 0 - 150 10/04 Specimen Type: PLASMA Comment: No hemolysis noted. Ordering Provider: Florin GLEZ Report Released Date/Time: Oct 04, 2024 10:09 AM Reporting Lab: [place] [address] [address] Performing Lab: [place] [address] [address] [facility] LIPID PANEL (STL) CHOLESTERO L IN LDL [MASS/VOLU ME] IN SERUM OR PLASMA BY CALCULATIO N 114 mg/dL 10/04 Specimen Type: PLASMA Comment: No hemolysis noted. Ordering Provider: Florin GLEZ Report Released Date/Time: Oct 04, 2024 10:09 AM Reporting Lab: [place] [address] [address] Performing Lab: [address] [address] [facility] LIPID PANEL (STL) CHOLESTERO L IN HDL [MASS/VOLU ME] IN SERUM OR PLASMA 50 mg/dL 40 10/04 Specimen Type: PLASMA Comment: No hemolysis noted. Ordering Provider: Florin GLEZ Report Released Date/Time: Oct 04, 2024 10:09 AM Reporting Lab: [address] [address] Performing Lab: [address] [address] [facility] URINALYS IS (STL-PB) COLOR OF URINE Light-Ye llow 10/04 Specimen Type: URINE No comment entered. Ordering Provider: Florin GLEZ Report Released Date/Time: Oct 04, 2024 10:09 AM Reporting Lab: [place] [address] [address] Performing Lab: [address] [address] [facility] URINALYS IS (STL-PB) BILIRUBIN. TOTAL [PRESENCE] IN URINE BY TEST STRIP Negative mg/dL 10/04 Specimen Type: URINE No comment entered. Ordering Provider: Florin GLEZ Report Released Date/Time: Oct 04, 2024 10:09 AM Reporting Lab: [place] [address] [address] Performing Lab: [address] [address] [facility] URINALYS IS (STL-PB) PH OF URINE BY TEST STRIP 6.5 5.0 - 8.0 10/04 Specimen Type: URINE No comment entered. Ordering Provider: Florin GLEZ Report Released Date/Time: Oct 04, 2024 10:09 AM Reporting Lab: [place] [address] [address] Performing Lab: [address] [address] [facility] URINALYS IS (STL-PB) APPEARANCE OF URINE Clear 10/04 Specimen Type: URINE No comment entered. Ordering Provider: Florin GLEZ Report Released Date/Time: Oct 04, 2024 10:09 AM Reporting Lab: [address] [place] [address] Performing Lab: [address] [address] [facility] URINALYS IS (STL-PB) NITRITE [PRESENCE] IN URINE BY TEST STRIP Negative mg/dL 10/04 Specimen Type: URINE No comment entered. Ordering Provider: Florin GLEZ Report Released Date/Time: Oct 04, 2024 10:09 AM Reporting Lab: [place] [address] [address] Performing Lab: [address] [address] [facility] URINALYS IS (STL-PB) GLUCOSE [MASS/VOLU ME] IN URINE BY TEST STRIP Normalmg /dL 10/04 Specimen Type: URINE No comment entered. Ordering Provider: Florin GLEZ Report Released Date/Time: Oct 04, 2024 10:09 AM Reporting Lab: [address] [address] Performing Lab: [address] [address] [facility] URINALYS IS (STL-PB) PROTEIN [MASS/VOLU ME] IN URINE BY TEST STRIP Negative mg/dL 10/04 Specimen Type: URINE No comment entered. Ordering Provider: Florin GLEZ Report Released Date/Time: Oct 04, 2024 10:09 AM Reporting Lab: [address] [address] Performing Lab: [address] [address] [facility] URINALYS IS (STL-PB) URN.UROBIL INOGEN Normalmg /dL 10/04 Specimen Type: URINE No comment entered. Ordering Provider: Florin GLEZ Report Released Date/Time: Oct 04, 2024 10:09 AM Reporting Lab: [place] [address] [place] [phone] Performing Lab: [address] [address] [facility] URINALYS IS (STL-PB) HEMOGLOBIN [MASS/VOLU ME] IN URINE BY TEST STRIP Negative mg/dL 10/04 Specimen Type: URINE No comment entered. Ordering Provider: Florin GLEZ Report Released Date/Time: Oct 04, 2024 10:09 AM Reporting Lab: [address] [address] Performing Lab: [address] [address] [facility] URINALYS IS (STL-PB) KETONES [MASS/VOLU ME] IN URINE BY TEST STRIP Negative mg/dL 10/04 Specimen Type: URINE No comment entered. Ordering Provider: Florin GLEZ Report Released Date/Time: Oct 04, 2024 10:09 AM Reporting Lab: [address] [address] Performing Lab: [address] [address] [facility] URINALYS IS (STL-PB) URN.LEUK.E ST. Negative mg/dL 10/04 Specimen Type: URINE No comment entered. Ordering Provider: Florin GLEZ Report Released Date/Time: Oct 04, 2024 10:09 AM Reporting Lab: [address] [address] Performing Lab: [address] [address] [facility] URINALYS IS (STL-PB) SPECIFIC GRAVITY OF URINE 1.014 10/04 Specimen Type: URINE No comment entered. Ordering Provider: Florin GLEZ Report Released Date/Time: Oct 04, 2024 10:09 AM Reporting Lab: [address] [address] Performing Lab: [facility] [address] [facility] [address] [facility] CBC LEUKOCYTES [#/VOLUME] IN BLOOD BY AUTOMATED COUNT 8.4 10*3/uL 3.6 - 11.2 10/04 Specimen Type: BLOOD No comment entered. Ordering Provider: Florin GLEZ Report Released Date/Time: Oct 04, 2024 10:09 AM Reporting Lab: [address] [address] Performing Lab: [address] [address] [facility] CBC ERYTHROCYT ES [#/VOLUME] IN BLOOD BY AUTOMATED COUNT 4.41 10*6/uL 3.60 - 5.00 10/04 Specimen Type: BLOOD No comment entered. Ordering Provider: Florin GLEZ Report Released Date/Time: Oct 04, 2024 10:09 AM Reporting Lab: [address] [address] Performing Lab: [address] [address] [facility] CBC HEMOGLOBIN [MASS/VOLU ME] IN BLOOD 12.8 g/dL 11.0 - 14.9 10/04 Specimen Type: BLOOD No comment entered. Ordering Provider: Florin GLEZ Report Released Date/Time: Oct 04, 2024 10:09 AM Reporting Lab: [address] [address] Performing Lab: [address] [address] [facility] CBC HEMATOCRIT [VOLUME FRACTION] OF BLOOD 38.7 32.6 - 43.4 10/04 Specimen Type: BLOOD No comment entered. Ordering Provider: Florin GLEZ Report Released Date/Time: Oct 04, 2024 10:09 AM Reporting Lab: [address] [address] Performing Lab: [address] [address] [facility] CBC MCV [ENTITIC VOLUME] BY AUTOMATED COUNT 87.8 fL 80.0 - 100.0 10/04 Specimen Type: BLOOD No comment entered. Ordering Provider: Florin GLEZ Report Released Date/Time: Oct 04, 2024 10:09 AM Reporting Lab: [address] [address] Performing Lab: [address] [address] [facility] CBC MCH [ENTITIC MASS] BY AUTOMATED COUNT 29.0 pg 27.0 - 34.0 10/04 Specimen Type: BLOOD No comment entered. Ordering Provider: Florin GLEZ Report Released Date/Time: Oct 04, 2024 10:09 AM Reporting Lab: [address] [address] Performing Lab: [address] [address] [facility] CBC MCHC [MASS/VOLU ME] BY AUTOMATED COUNT 33.1 g/dL 33.0 - 36.0 10/04 Specimen Type: BLOOD No comment entered. Ordering Provider: Florin GLEZ Report Released Date/Time: Oct 04, 2024 10:09 AM Reporting Lab: [address] [address] Performing Lab: [address] [address] [facility] CBC PLATELETS [#/VOLUME] IN BLOOD BY AUTOMATED COUNT 291 10*3/uL 150 - 400 10/04 Specimen Type: BLOOD No comment entered. Ordering Provider: Florin GLEZ Report Released Date/Time: Oct 04, 2024 10:09 AM Reporting Lab: [address] [address] Performing Lab: [address] [address] [facility] CBC PLATELET MEAN VOLUME [ENTITIC VOLUME] IN BLOOD BY AUTOMATED COUNT 10.2 fL 7.5 - 11.2 10/04 Specimen Type: BLOOD No comment entered. Ordering Provider: Florin GLEZ Report Released Date/Time: Oct 04, 2024 10:09 AM Reporting Lab: [address] [address] Performing Lab: [address] [address] [facility] CBC ERYTHROCYT E DISTRIBUTI ON WIDTH [RATIO] BY AUTOMATED COUNT 13.0 11.8 - 15.1 10/04 Specimen Type: BLOOD No comment entered. Ordering Provider: Florin GLEZ Report Released Date/Time: Oct 04, 2024 10:09 AM Reporting Lab: [address] [address] Performing Lab: [address] [address] [facility] CBC LYMPHOCYTE S/100 LEUKOCYTES IN BLOOD BY AUTOMATED COUNT 31 10/04 Specimen Type: BLOOD No comment entered. Ordering Provider: Florin GLEZ Report Released Date/Time: Oct 04, 2024 10:09 AM Reporting Lab: [place] [address] [facility] [address] Performing Lab: [address] [address] [facility] CBC MONOCYTES/ 100 LEUKOCYTES IN BLOOD BY AUTOMATED COUNT 5 10/04 Specimen Type: BLOOD No comment entered. Ordering Provider: Florin GLEZ Report Released Date/Time: Oct 04, 2024 10:09 AM Reporting Lab: [facility] [address] [place] [phone] Performing Lab: [place] [address] [facility] [address] [facility] CBC NEUTROPHIL S/100 LEUKOCYTES IN BLOOD BY AUTOMATED COUNT 62 10/04 Specimen Type: BLOOD No comment entered. Ordering Provider: Florin GLEZ Report Released Date/Time: Oct 04, 2024 10:09 AM Reporting Lab: [facility] [address] [place] [phone] Performing Lab: [facility] [address] [place] [phone] [facility] CBC EOSINOPHIL S/100 LEUKOCYTES IN BLOOD BY AUTOMATED COUNT 2 10/04 Specimen Type: BLOOD No comment entered. Ordering Provider: Florin GLEZ Report Released Date/Time: Oct 04, 2024 10:09 AM Reporting Lab: [facility] [address] [place] [phone] Performing Lab: [facility] [address] [place] [phone] [facility] CBC BASOPHILS/ 100 LEUKOCYTES IN BLOOD BY AUTOMATED COUNT 1 10/04 Specimen Type: BLOOD No comment entered. Ordering Provider: Florin GLEZ Report Released Date/Time: Oct 04, 2024 10:09 AM Reporting Lab: [facility] [address] Performing Lab: [address] [address] [facility] CBC LYMPHOCYTE S [#/VOLUME] IN BLOOD BY AUTOMATED COUNT 2.57 10*3/uL 0.77 - 4.50 10/04 Specimen Type: BLOOD No comment entered. Ordering Provider: Florin GLEZ Report Released Date/Time: Oct 04, 2024 10:09 AM Reporting Lab: [facility] [address] [facility] [address] Performing Lab: [facility] [address] [place] [phone] [facility] CBC MONOCYTES [#/VOLUME] IN BLOOD BY AUTOMATED COUNT 0.44 10*3/uL 0.19 - 0.80 10/04 Specimen Type: BLOOD No comment entered. Ordering Provider: Florin GLEZ Report Released Date/Time: Oct 04, 2024 10:09 AM Reporting Lab: [facility] [address] [place] [phone] Performing Lab: [place] [id number] [place] [address] [facility] CBC NEUTROPHIL S [#/VOLUME] IN BLOOD BY AUTOMATED COUNT 5.16 10*3/uL 2.10 - 8.00 10/04 Specimen Type: BLOOD No comment entered. Ordering Provider: Florin GLEZ Report Released Date/Time: Oct 04, 2024 10:09 AM Reporting Lab: [place] [id number] Performing Lab: [place] [id number] [facility] CBC EOSINOPHIL S [#/VOLUME] IN BLOOD BY AUTOMATED COUNT 0.14 10*3/uL 0.00 - 0.60 10/04 Specimen Type: BLOOD No comment entered. Ordering Provider: Florin GLEZ Report Released Date/Time: Oct 04, 2024 10:09 AM Reporting Lab: [place] [id number] Performing Lab: [place] [id number] [facility] CBC BASOPHILS [#/VOLUME] IN BLOOD BY AUTOMATED COUNT 0.05 10*3/uL 0.00 - 0.20 10/04 Specimen Type: BLOOD No comment entered. Ordering Provider: Florin GLEZ Report Released Date/Time: Oct 04, 2024 10:09 AM Reporting Lab: [place] [id number] Performing Lab: [place] [id number] [facility] HGA1C HEMOGLOBIN A1C/HEMOGL OBIN.TOTAL IN BLOOD 5.4 4.0 - 6.0 10/04 Specimen Type: BLOOD No comment entered. Ordering Provider: Florin GLEZ Report Released Date/Time: Oct 04, 2024 10:09 AM Reporting Lab: [place] [id number] Performing Lab: [address] [facility] TSH W/ REFLEX FT4 (STL) THYROTROPI N [UNITS/VOL UME] IN SERUM OR PLASMA 0.351 u[IU]/mL 0.47 - 5 10/04 L Specimen Type: PLASMA No comment entered. Ordering Provider: Florin GLEZ Report Released Date/Time: Oct 04, 2024 10:09 AM Reporting Lab: [place] [address] Performing Lab: [address] [facility] FREE T4 (STL) THYROXINE (T4) FREE [MASS/VOLU ME] IN SERUM OR PLASMA 1.02 ng/mL 0.7 - 1.48 10/04 Specimen Type: PLASMA No comment entered. Ordering Provider: Florin GLEZ Report Released Date/Time: Oct 04, 2024 10:09 AM Reporting Lab: [place] [address] Performing Lab: [address] [facility] TOTAL T3 (STL) TRIIODOTHY RONINE (T3) [MASS/VOLU ME] IN SERUM OR PLASMA 118.11 ng/dL 58 - 159 10/04 Specimen Type: PLASMA No comment entered. Ordering Provider: Florin GLEZ Report Released Date/Time: Oct 04, 2024 10:09 AM Reporting Lab: [place] [address] Performing Lab: [place] [id number] [place] [address] [facility] VITAMIN D, 25-HYDRO XY 25-HYDROXY VITAMIN D3 [MASS/VOLU ME] IN SERUM OR PLASMA 40.1 ng/mL 30 - 96 10/04 Specimen Type: SERUM Comment: The listed sex of this patient may not be a typical indication for this test. Therefore, reference ranges or interpretiv e criteria listed may not be valid. Clinical correlation suggested. Ordering Provider: Florin GLEZ Report Released Date/Time: Oct 04, 2024 10:09 AM Reporting Lab: [facility] [address] [facility] [address] Performing Lab: [facility] [address] [facility] [address] [facility] Molecula r Infectio us Disease CT DNA PCR Not Detected *NA* (10/05/22 12:06 PM) 10/05 [facility] [facility] Molecula r Infectio us Disease GC DNA PCR Not Detected *NA* (10/05/22 12:06 PM) 10/05 [facility] Urinalys is WBC, Wet Prep Moderate (10/05/22 12:06 PM) 10/05 N [facility] Urinalys is Clue Cells, Wet Prep Not Present (10/05/22 12:06 PM) 10/05 N [facility] [place] Urinalys is Yeast, Wet Prep Not Present (10/05/22 12:06 PM) 10/05 N [facility] [place] Urinalys is Trichomona s, Wet Prep Not Present (10/05/22 12:06 PM) 10/05 N [facility] Chemistr y Lab Orders to Add: urine culture 10/05 [facility] [place] Urinalys is UA Color Yellow *NA* (10/05/22 9:58 AM) 10/05 [facility] [place] Urinalys is UA Appear Clear *NA* (10/05/22 9:58 AM) 10/05 [facility] [place] Urinalys is UA Spec [place] 1.015 1.003 - 1.035 10/05 N [facility] [place] Urinalys is UA Urobilinog en Normal mg/dL 10/05 [facility] [place] Urinalys is UA pH 6.5 4.6 - 8.0 10/05 N [facility] [place] Urinalys is UA Bili Negative *NA* (10/05/22 9:58 AM) 10/05 [facility] [place] Urinalys is UA Leuk Esterase Negative *NA* (10/05/22 9:58 AM) 10/05 [facility] [place] Urinalys is UA Nitrite Negative (10/05/22 9:58 AM) 10/05 N [facility] [place] Urinalys is UA Protein Negative mg/dL 10/05 N [facility] [place] Urinalys is UA Micro Ind? Not Indicate d *NA* (10/05/22 9:58 AM) 10/05 [facility] Urinalys is UA Glucose Negative *NA* (10/05/22 9:58 AM) 10/05 [facility] [place] Urinalys is UA Ketones Negative mg/dL 10/05 [facility] [place] Urinalys is UA Blood Negative *NA* (10/05/22 9:58 AM) 10/05 [facility] [place] Chemistr y Beta hCG, Urine Qual Negative 2 (10/05/22 9:58 AM) 10/05 N Interpretiv e Data: If a urine sample is too dilute, it may give a false negative result. If a negative result is obtained and is still suspected, a first morning sample should be obtained and tested. If waiting is not medically advisable, a blood specimen should be submitted for a serum qualitative HCG test.If an equivocal serum result is obtained, another sample should be obtained in 48 hours and retested. In this case, if waiting is not medically. [facility] [place] Chemistr y Lab Order(s) Added? Yes (05/30/22 12:15 PM) 05/30 N [facility] [place] Chemistr y Lab Orders to Add: urine cult 05/30 [facility] [place] Urinalys is UA Appear Clear *NA* (05/30/22 11:07 AM) 05/30 [facility] [place] Urinalys is UA Color Colorles s *NA* (05/30/22 11:07 AM) 05/30 [facility] [place] Urinalys is UA Micro Ind? Not Indicate d *NA* (05/30/22 11:07 AM) 05/30 [facility] [place] Urinalys is UA Bili Negative *NA* (05/30/22 11:07 AM) 05/30 [facility] [place] Urinalys is UA Spec [place] 1.004 1.003 - 1.035 05/30 N [facility] [place] Urinalys is UA Leuk Esterase Negative *NA* (05/30/22 11:07 AM) 05/30 [facility] [place] Urinalys is UA Protein Negative mg/dL 05/30 N [facility] [place] Urinalys is UA Nitrite Negative (05/30/22 11:07 AM) 05/30 N [facility] [place] Urinalys is UA pH 6.0 4.6 - 8.0 05/30 N [facility] [place] Urinalys is UA Ketones Negative mg/dL 05/30 [facility] [place] Urinalys is UA Urobilinog en Normal mg/dL 05/30 [facility] [place] Urinalys is UA Blood Negative *NA* (05/30/22 11:07 AM) 05/30 [facility] [place] [facility] Urinalys is UA Glucose Negative *NA* (05/30/22 11:07 AM) 05/30 Rosy-[facility] Esau young Chemistr y Lab Order(s) Added? Yes (02/08/22 9:26 PM) 02/09 N [facility]y-[facility] young Chemistr y Lab Orders to Add: Beta hCG serum 02/09 0089[facility] Esau young Chemistr y Beta hCG, Serum Qual Negative 1 (02/08/22 9:23 PM) 02/09 N Interpretiv e Data: If an equivocal serum result is obtained, another sample should be obtained in 48 hours and retested. In this case, if waiting is not medically advisable, the test results should be confirmed with a quantitativ e hCG test. Jose F-[facility] Esau young Hematolo gy Hemoglobin 14.4 g/dL 10.6 - 15.4 02/08 N Jose F9A-[facility] Esau young Hematolo gy MCV 88.9 fL 79.7 - 97.6 02/08 N Jose F-[facility] AnaLi hannah Hematolo gy Hematocrit 42.3 % 30.1 - 45.0 02/08 N Jose F9A-[facility] AnaLi hannah Hematolo gy WBC 6.9 10^3/uL 3.2 - 10.8103 02/08 N Jose F-[facility] Esau young Hematolo gy RBC 4.76 10^6/uL 3.26 - 5.28652 02/08 N 0089A-[facility] [facility] Hematolo gy RDW 13.7 % 12.3 - 17.0 02/08 N 0089A-[facility] [place] Hematolo gy MPV 8.7 fL 7.4 - 10.6 02/08 N 0089A-[facility] [place] [facility] Hematolo gy Platelets 201 10^3/uL 125 - [id number] 02/08 N Jose F9A-[facility] Hematolo gy MCHC 34.1 g/dL 32.9 - 35.5 02/08 N 0089A-[facility] [place] Hematolo gy MCH 30.4 pg 26.5 - 34.2 02/08 N 0089A-[facility] [facility] Hematolo gy Monocyte % Auto 8.9 % 3.7 - 11.4 02/08 N 0089A-[facility] [facility] Hematolo gy Eosinophil % Auto 3.5 % 0.2 - 5.9 02/08 N 0089A-[facility] [place] [facility] Hematolo gy Sunflower Absolute 0.6 10^3/uL 0.2 - 0.9103 02/08 N 008-[facility]-[place] [facility] Hematolo gy Lymph Absolute 2.1 10^3/uL 0.8 - 3.0103 02/08 N 008-[facility]-[place] [facility] Hematolo gy Neutro Absolute 3.9 10^3/uL 1.5 - 8.1103 02/08 N [facility] Johnna-Li [facility] Hematolo gy Basophil % Auto 0.6 % 0.1 - 1.2 02/08 N 008-[facility]-[place] [facility] Hematolo gy Lymphocyte % Auto 30.7 % 13.7 - 43.7 02/08 N 008-[facility] [facility] Hematolo gy Neutrophil % Auto 56.3 % 44.5 - 78.5 02/08 N [facility]-[place] [facility] Hematolo gy Eos Absolute 0.2 10^3/uL 0.0 - 0.4103 02/08 N 008-[facility] [facility] Hematolo gy Baso Absolute 0.0 10^3/uL 0.0 - 0.1103 02/08 N [facility] [facility] Vital Signs Combined list of inpatient and outpatient Vital Signs from [employer] and [employer] Affairs, ranging from 12 months to all on record, depending upon the facility. Vital Sign Value Date Comments Source Temperature Oral 36.9 Jess 05/30/2022 15:02:[address] [place], [place] [address] Systolic Blood Pressure 104 mm[Hg] 05/30/20 15:02:00 [facility] Diastolic Blood Pressure 72 mm[Hg] 022 15:02:00 [facility] Peripheral Pulse Rate 82 bpm 05/30/2022 15:02:00 [facility] Respiratory Rate 18 br/min 05/30/2022 15:02:00 [facility] Blood Pressure Manual Automatic 07/07/2022 13:47:00 [facility] Mean Arterial Pressure, Calc 84 mm[Hg] 07/07/2022 13:47:00 [facility] [place] Systolic Blood Pressure 111 mm[Hg] 07/07/20 13:47:00 [facility] Diastolic Blood Pressure 71 mm[Hg] 022 13:47:00 [facility] BP Site Right arm 07/07/2022 13:47:00 [facility] Temperature Oral 36.7 Jess 07/07/2022 13:47:00 [facility] [place] Respiratory Rate 18 br/min 07/07/2022 13:47:00 [facility] [place] Peripheral Pulse Rate 84 bpm 07/07/2022 13:47:00 [facility] [place] Respiratory Rate 17 br/min 10/05/2022 14:38:00 [facility] [place] Peripheral Pulse Rate 72 bpm 10/05/2022 14:38:00 [facility] [place] Systolic Blood Pressure 107 mm[Hg] 10/05/19 23 14:38:00 [facility] [place] Diastolic Blood Pressure 71 mm[Hg] 023 14:38:00 [facility] Temperature Tympanic 35.7 Jess 10/05/2022 14:38:00 [facility] [place] Respiratory Rate 20 br/min 02/04/2022 15:20:00 [facility] [place] Peripheral Pulse Rate 71 bpm 02/04/2022 15:20:00 [facility] [place] Mean Arterial Pressure, Calc 87 mm[Hg] 02/04/2022 15:20:00 [facility] [place] Blood Pressure Manual Automatic 02/04/2022 15:20:00 [facility] [place] BP Site Right arm 02/04/2022 15:20:00 [facility] [place] Temperature Oral 36.8 Jess 02/04/2022 15:20:00 [facility] [place] Systolic Blood Pressure 109 mm[Hg] 02/05/20 15:20:00 [facility] [place] Diastolic Blood Pressure 76 mm[Hg] 022 15:20:00 [facility] [place] Peripheral Pulse Rate 75 bpm 05/16/2022 14:33:00 [facility] [place] Mean Arterial Pressure, Calc 89 mm[Hg] 05/16/2022 14:33:00 [facility] [place] Systolic Blood Pressure 114 mm[Hg] 05/16/20 14:33:00 [facility] [place] Diastolic Blood Pressure 76 mm[Hg] 022 14:33:00 [facility] [place] Blood Pressure Manual Automatic 05/16/2022 14:33:00 [facility] [place] BP Site Right arm 05/16/2022 14:33:00 [facility] [place] Temperature Oral 36.8 Jess 05/16/2022 14:33:00 [facility] [place] Respiratory Rate 17 br/min 05/16/2022 14:33:00 [facility] [place] Peripheral Pulse Rate 79 bpm 02/01/2022 12:40:00 [facility] [place] Temperature Oral 36.9 Jess 02/01/2022 12:40:00 [facility] [place] Mean Arterial Pressure, Calc 85 mm[Hg] 02/01/2022 12:40:00 [facility] [place] Peripheral Pulse Rate 65 bpm 10/05/2022 18:22:00 [facility] [place] Respiratory Rate 18 br/min 10/05/2022 18:22:00 [facility] [place] Systolic Blood Pressure 109 mm[Hg] 10/05/19 23 18:22:00 [facility] [place] Diastolic Blood Pressure 74 mm[Hg] 023 18:22:00 [facility] [place] Temperature Tympanic 37.0 Jess 10/05/2022 18:22:00 [facility] [place] Systolic Blood Pressure 121 mm[Hg] 02/10/20 01:17:00 [facility] [place] Diastolic Blood Pressure 70 mm[Hg] 022 01:17:00 [facility] [place] Peripheral Pulse Rate 63 bpm 02/09/2022 01:17:00 [facility] [place] Temperature Oral 36.9 Jess 02/09/2022 01:17:00 [facility] [place] Mean Arterial Pressure, Calc 87 mm[Hg] 02/09/2022 01:17:00 [facility] [place] Cuff Size Medium 02/09/2022 01:17:00 [facility] [place] Blood Pressure Location Right arm 02/10/20 01:17:00 [facility] [place] Blood Pressure Method Automatic 02/09/2022 01:17:00 [facility] [place] Respiratory Rate 16 br/min 02/09/2022 01:17:00 [facility] [place] Peripheral Pulse Rate 69 bpm 02/09/2022 03:20:00 [facility] [place] Respiratory Rate 16 br/min 02/09/2022 03:20:00 [facility] [place] Systolic Blood Pressure 116 mm[Hg] 02/10/20 03:20:00 [facility] [place] Diastolic Blood Pressure 83 mm[Hg] 022 03:20:00 [facility] [place] Mean Arterial Pressure, Calc 94 mm[Hg] 02/09/2022 03:20:00 [facility] [place] Blood Pressure Method Automatic 02/09/2022 03:20:00 [facility] [place] Blood Pressure Location Right arm 02/10/20 03:20:00 [facility] [place] Cuff Size Medium 02/09/2022 03:20:00 [facility] [place] Systolic Blood Pressure 125 mm[Hg] 08/23/20 19:37:00 [facility] [place] Diastolic Blood Pressure 80 mm[Hg] 19:37:00 [facility] [place] Mean Arterial Pressure, Calc 95 mm[Hg] 08/23/2022 19:37:00 [facility] [place] Temperature Oral 37.0 Jess 08/23/2022 19:37:00 [facility] [place] Peripheral Pulse Rate 75 bpm 02/08/2022 20:35:00 [facility] [place] Respiratory Rate 18 br/min 02/08/2022 20:35:00 [facility] [place] Systolic Blood Pressure 122 mm[Hg] 02/09/20 20:35:00 [facility] [place] Diastolic Blood Pressure 83 mm[Hg] 022 20:35:00 [facility] [place] Temperature Oral 36.8 Jess 02/08/2022 20:35:00 [facility] [place] SYSTOLIC BLOOD PRESSURE 121 11/29/19 14:01:04 [facility] DIASTOLIC BLOOD PRESSURE 76 025 14:01:04 [facility] PULSE OXIMETRY 98 11/28/2024 14:01:04 [facility] WEIGHT 162.9 11/28/2024 14:01:04 [facility] BMI 26 kg/m2 11/28/2024 14:01:04 [facility] PAIN 5 11/28/2024 14:01:04 [facility] HEIGHT 66 11/28/2024 14:01:04 [facility] TEMPERATURE 98.3 11/28/2024 14:01:04 [facility] PULSE 105 11/28/2024 14:01:04 [facility] RESPIRATION 20 11/28/2024 14:01:04 [facility] SYSTOLIC BLOOD PRESSURE 111 11/15/19 25 07:00:00 [facility] DIASTOLIC BLOOD PRESSURE 74 025 07:00:00 [facility] PULSE OXIMETRY 100 11/15/2024 07:00:00 [facility] WEIGHT 157.2 11/15/2024 07:00:00 [facility] BMI 25 kg/m2 11/15/2024 07:00:00 [facility] PAIN 6 11/15/2024 07:00:00 [facility] HEIGHT 66 11/15/2024 07:00:00 [facility] TEMPERATURE 98.1 11/15/2024 07:00:00 [facility] PULSE 60 11/15/2024 07:00:00 [facility] RESPIRATION 16 11/15/2024 07:00:00 [facility] SYSTOLIC BLOOD PRESSURE 121 10/31/19 25 15:16:16 [facility] DIASTOLIC BLOOD PRESSURE 82 025 15:16:16 [facility] PULSE OXIMETRY 99 10/31/2024 15:16:16 [facility] WEIGHT 162.1 10/31/2024 15:16:16 [facility] BMI 26 kg/m2 10/31/2024 15:16:16 [facility] PAIN 6 10/31/2024 15:16:16 [facility] HEIGHT 66 10/31/2024 15:16:16 [facility] TEMPERATURE 98.2 10/31/2024 15:16:16 [facility] PULSE 78 10/31/2024 15:16:16 [facility] RESPIRATION 16 10/31/2024 15:16:16 [facility] SYSTOLIC BLOOD PRESSURE 121 10/18/19 25 09:03:03 [facility] DIASTOLIC BLOOD PRESSURE 85 025 09:03:03 [facility] PULSE OXIMETRY 98 10/18/2024 09:03:03 [facility] WEIGHT 158.8 10/18/2024 09:03:03 [facility] BMI 26 kg/m2 10/18/2024 09:03:03 [facility] PAIN 0 10/18/2024 09:03:03 [facility] HEIGHT 66 10/18/2024 09:03:03 [facility] TEMPERATURE 97.5 10/18/2024 09:03:03 [facility] PULSE 83 10/18/2024 09:03:03 [facility] RESPIRATION 18 10/18/2024 09:03:03 [facility] SYSTOLIC BLOOD PRESSURE 137 10/04/19 25 09:43:57 [facility] DIASTOLIC BLOOD PRESSURE 65 025 09:43:57 [facility] PULSE OXIMETRY 99 10/04/2024 09:43:57 [facility] WEIGHT 158 10/04/2024 09:43:57 [facility] BMI 26 kg/m2 10/04/2024 09:43:57 [facility] PAIN 4 10/04/2024 09:43:57 [facility] TEMPERATURE 98.3 10/04/2024 09:43:57 [facility] PULSE 74 10/04/2024 09:43:57 [facility] RESPIRATION 20 10/04/2024 09:43:57 [facility] Encounters Combined list of: 1) Encounters from [facility] facilities going backup to the last 18 months, not all [facility] encounters are included; 2) Encounters from the Department of [facility] facilities going backup to 280 months. Location Location Details Encounter Type Encounter Number Reason For Visit Attending Provider ADM Date DC Date Status Disposition Source [facility] Outpatient Encounter [id number] Deepthi NAVARRO 07/07 [facility] OFFICE O/P EST MOD 30-39 MIN [id number] Diagnos is: ICD-10- CM Z72.0 Tobacco use SUKHJINDER GLEZ 07/11 [facility] Outpatient Encounter [id number] 07/26 [facility] Inpatient Encounter [id number] [id number] Dolores GIPSON JR 07/30 [facility] Inpatient Encounter [id number] [id number] Diagnos is: ICD-10- CM R10.9 Unspeci fied abdomin al pain RAMON HARPER 07/30 [facility] EMERGENCY DEPT VISIT LOW MDM [id number] Diagnos is: ICD-10- CM N13.30 Unspeci fied hydrone phrosis SHAZIA FANG 07/30 [facility] Outpatient Encounter [id number] 07/30 [facility] Inpatient Encounter [id number] [id number] Admit Reason: HYDRONE PHROSIS ASHANTI VEGAS 07/30 [facility] Inpatient Encounter [id number] [id number] KAYLA SLAUGHTER ISS 07/30 [facility] Inpatient Encounter [id number] [id number] KAYLA SLAUGHTER ISS 07/30 [facility] Inpatient Encounter [id number] [id number] KAYLA SLAUGHTER ISS 07/31 [facility] Inpatient Encounter [id number] [id number] FARHANA LUCAS 07/31 [facility] Inpatient Encounter [id number] [id number] RONY,MIK BUCK 07/31 [facility] Inpatient Encounter [id number] [id number] RONYJEREMY JANE 07/31 [facility] Inpatient Encounter [id number] [id number] ARRON HITCHCOCK ED 07/31 [facility] Inpatient Encounter [id number] [id number] SHAH 07/31 [facility] Inpatient Encounter [id number] [id number] JEREMY URIBE 07/31 [facility] Inpatient Encounter [id number] [id number] JEREMY URIBE 07/31 [facility] HC PRO PHONE CALL 11-20 MIN [id number] [id number] Diagnos is: ICD-10- CM N13.30 Unspeci fied hydrone phrosis [place] 08/01 [facility] Outpatient Encounter [id number] 08/17 [facility] OFFICE O/P EST MOD 30-39 MIN [id number] Diagnos is: ICD-10- CM Z72.0 Tobacco use SUKHJINDER GLEZ 08/17 [facility] Outpatient Encounter [id number] Chel HAYES 08/22 [facility] Outpatient Encounter [id number] SUKHJINDER GLEZ 08/28 [facility] Outpatient Encounter [id number] [id number] LEONORA TAPIA 09/07 [facility] Outpatient Encounter [id number] [id number] Diagnos is: ICD-10- CM J10.1 Flu due to oth ident influen za virus w oth resp manifes t CHINO RITTER 09/07 [facility] Outpatient Encounter [id number] [id number] 09/25 [facility] Outpatient Encounter [id number] [id number] 2 10/17 [facility] Outpatient Encounter [id number] [id number] 10/25 [facility] Outpatient Encounter [id number] [id number] 11/08 [facility] OFFICE O/P EST LOW 20 MIN [id number] Diagnos is: ICD-10- CM Z12.4 Encount er for screeni ng for maligna nt neoplas m of cervix Elyssa RUDD 11/10 [facility] Outpatient Encounter [id number] [id number] ASHLEY ALY NA 11/14 [facility] Outpatient Encounter [id number] SHEEBA,AM NA 11/19 [facility] Outpatient Encounter [id number] [id number] 11/19 [facility] Outpatient Encounter [id number] [id number] CHRISTINA GARCIA 12/09 [facility] EMERGENCY DEPT VISIT MOD MDM [id number] [id number] Diagnos is: ICD-10- CM N76.0 Acute vaginit is Briana WHITESIDE M 12/10 [facility] Outpatient Encounter [id number] [id number] Briana WHITESIDE M 12/10 [facility] Outpatient Encounter [id number] [id number] Deepthi NAVARRO 01/09 [facility] Outpatient Encounter [id number] [id number] 01/10 [facility] Outpatient Encounter [id number] [id number] [place] 01/18 [facility] Outpatient Encounter [id number] [id number] ADRIANA KENNEDY 01/27 [facility] Outpatient Encounter [id number] [id number] 02/26 [facility] Outpatient Encounter [id number] [id number] Deepthi NAVARRO 03/22 [facility] Outpatient Encounter [id number] [id number] 05/23 [facility] Outpatient Encounter [id number] [id number] Diagnos is: ICD-10- CM F41.9 Anxiety disorde r, unspeci fied CHINO RITTER L 05/23 [facility] Outpatient Encounter [id number] [id number] 3 05/27 [facility] Outpatient Encounter [id number] [id number] 07/11 [facility] Outpatient Encounter [id number] Merritt CARRILLO 07/12 [facility] Encounter [id number] [id number] 07/12 [facility] Outpatient Encounter [id number] [id number] Diagnos is: ICD-10- CM J20.9 Acute bronchi tis, unspeci fied CHINO RITTER N L 07/12 [facility] PSYTX W PT 45 MINUTES [id number] Diagnos is: ICD-10- CM F41.1 General ized anxiety disordMerritt Martinez 08/16 [facility] Outpatient Encounter [id number] [id number] [place] E 08/22 [facility] PSYTX W PT 30 MINUTES [id number] [id number] Diagnos is: ICD-10- CM F41.1 General ized anxiety disorde Merritt Giles 09/06 [facility] Outpatient Encounter [id number] 09/06 [facility] Outpatient Encounter [id number] [id number] 09/24 [facility] SYNCH AUDIO-VIDE O EST SF 10 [id number] [id number] Diagnos is: ICD-10- CM N39.498 Other specifi ed urinary inconti neashlyCHINO Boyd N L 09/25 [facility] OFFICE O/P EST HI 40 MIN [id number] Diagnos is: ICD-10- CM Z72.0 Tobacco use SUKHJINDER GLEZ 10/04 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 Florinda BRINK A 10/18 [facility] Outpatient Encounter [id number] [id number] 10/23 [facility] Outpatient Encounter [id number] [id number] 10/23 [facility] Outpatient Encounter [id number] [id number] 10/24 [facility] SYNCH AUDIO-VIDE O EST SF 10 [id number] [id number] Diagnos is: ICD-10- CM J01.10 Acute frontal sinusit is, unspeci fied DOMINICK SMALLWOOD C 10/24 [facility] Outpatient Encounter [id number] 10/25 [facility] Outpatient Encounter [id number] [id number] [place] 10/25 [facility] Outpatient Encounter [id number] [id number] 10/25 [facility] Outpatient Encounter [id number] [id number] 10/25 [facility] Outpatient Encounter [id number] [id number] [place] E 10/25 [facility] OFFICE O/P EST HI 40 MIN [id number] [id number] Diagnos is: ICD-10- 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 FARHANA ARDON AD M A 10/31 [facility] Outpatient Encounter [id number] [id number] 10/31 [facility] PSYTX W PT 30 MINUTES [id number] [id number] Diagnos is: ICD-10- CM F41.9 Anxiety disorde r, unspeci fiMerritt Dozier 11/01 [facility] Outpatient Encounter [id number] [id number] JACKSON FREDERICK I 11/01 [facility] Outpatient Encounter [id number] 11/05 [facility] Outpatient Encounter [id number] Diagnos is: ICD-10- CM Z01.818 Encount er for other preproc edural examSINDI Omer 11/06 [facility] PH1 ASSMT&MGMT NQHP 5-10 [id number] [id number] Diagnos is: ICD-10- CM M54.50 Low back pain, unspeci fiLOUISE Angulo 11/14 [facility] MEASURE BLOOD OXYGEN LEVEL [id number] [id number] Diagnos is: ICD-10- 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 ANDERS SOMMER M 11/15 [facility] Outpatient Encounter [id number] 11/15 [facility] OFFICE O/P EST MOD 30 MIN [id number] [id number] Diagnos is: ICD-10- CM Z01.818 Encount er for other preproc edural examina tiSAUMYA Sharma ICA A 11/15 [facility] Outpatient Encounter [id number] Diagnos is: ICD-10- CM 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 FARHANA ARDON AD M A 11/15 [facility] VEIN X-RAY KIDNEY [id number] [id number] FARHANA ARDON AD M A 11/15 [facility] Outpatient Encounter [id number] SHAZIA SANTOYO 11/15 [facility] Outpatient Encounter [id number] [id number] SAUMYA STEVE ICA A 11/15 [facility] POSTOP FOLLOW-UP VISIT [id number] [id number] Diagnos is: ICD-10- 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 Florinda BRINK A 11/15 [facility] Outpatient Encounter [id number] [id number] GOLDENBruce MARYE 11/15 [facility] Outpatient Encounter [id number] [id number] [place] E 11/18 [facility] Outpatient Encounter [id number] [id number] ALETACONNOR CA E 11/18 [facility] Outpatient Encounter [id number] 11/18 [facility] OFFICE O/P EST MOD 30 MIN [id number] [id number] Diagnos is: ICD-10- 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 FARHANA ARDON A 11/28 [facility] Outpatient Encounter [id number] 12/29 [facility] Procedures Combined list of: 1) Procedures from Department of Veterans Affairs facilities going back up to thelast 18 months, not all VA non-surgical procedures are included; 2) All procedures from the Department of Defense facilities. Procedure Procedure Type Code Date Perfomer Comments Sourc e ureter reconstruction 0089C[facility] Johnna-Libert y left renal venogram VEIN X-RAY KIDNEY [id number] 5 CHARITY ARDON A [facility] Social History Combined list of available smoking, tobacco, and other social history from Department of Defense and Veterans Affairs facilities. Social History Type Response Date Comment Sourc e Tobacco smoking status NHIS VA-TOBACCO NEVER USED OTHER TYPE 10/04/2024 [facility] History of tobacco use [place]-TOBACCO NEVER USED CIGARETTES 10/04/2024 [facility] History of tobacco use ORYX ADMIT TOBACC O SCREEN YES 07/31/2023 [facility] History of tobacco use VA-TOBACCO USE ADVICE 12/22/2022 [facility] History of tobacco use VA-TOBACCO USER EVERY DAY 10/15/2021 [facility] Sex Representation Female (finding) 09/22/2021 Unknown Organization History of tobacco use VA-TOBACCO USER EVERY DAY 10/20/2020 [facility] History of tobacco use VA-TOBACCO NEVER USED 04/15/2020 [facility] Tobacco Exposure to Secondhand Smoke: No. Yes-current everyday cigarette user Cigarette use:. 0.25 Average PACKS per day: (10 cigarettes = 0.5 packs). Yes-current everyday other tobacco user (not cigarettes) Other Tobacco use:. Ambulatory Pharmacy Sexual Orientation Ambula tory Pharmacy Gender identity Ambulator y Pharmacy Assessment and Plan Combined list of future care activities from Department of Defense and Veterans Affairs facilities (e.g., assessment and plan notes, appointments, orders, and referrals). Additional future care activities may be listed in the Plan of Care section. Result Assessment and Plan Date Source Assessment and Plan Extracted from:Title : Gynecology Clinic - Tubal Ligation Counseling Author: SUKHJINDER FRANCISCO MD Date: 08/23/22 1. Chel kennyeling for elective sterilization done Patient counseled on tubal ligation and understands the procedure is invasive, entails salpingectomy, and is irreversible. She also understands it is far more invasive than a vasectomy or other forms of contraception. Her only potential complications include cigarette smoking as below and a history of abdominal laparoscopic surgery for her hydronephrosis. 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 C ontinuous dependence on cigarette smoking Actively smokes ~6 cigarettes/daily. She is interested in quitting. Explained that it will improve her surgical outcome and wound healing. Will trial Chantix as below. -Chantix for smoking cessation Ordered: varenicline(Chantix 1 mg oral tablet), See Instructions, Oral, take one-half tablet by mouth every day for 3 days, then take one-half tablet twice a day for 4 days, then take one tablet twice a day to help quit smoking., # 46 tab(s), 0 total refill(s), Maintenance, 28 days, take one-half t... Sukhjinder Francisco M.D. [facility], , [facility] PGY-3 Family Medicine [facility] Patient was staffed with attending physician, Dr. Chel matson Addendum by SHEELA OSCAR MD on August 24, 2022 16:09:08 EST I discussed this patient with the house staff, reviewed the documentation and data herein, confirmed its accuracy, and concur. Dr. Sheela Oscar MD [facility], [facility], Staff [employer], [facility], [place], [place] MTOE Assigned Personnel: [address] M ed [employer], [address] M ed [facility] ([id number]) Extracted from:Title: breast lump Author: BAN DEUTSCH PA Date: 07/07/22 1. B reast lump 27 y/o female with multiple lumps in bilateral breasts, most notable lump on left breast at 1230 without tenderness. Also with clear nipple discharge for a month and slight dimpling on right lateral breast. No pregnancies or lactating in past year. No first degree relatives with breast cancer. --Mammogram ordered for further evaluation --Continue monthly self-breast exams Ordered: MG Mammo Truong Diagnostic Bilateral Ban Deutsch PA-C [facility] Extracted from:Title: Ambulatory Patient Education Author: BAN DEUTSCH PA Date: 07/07/22 Patient Education Materials Follows:and Gynecology Fibrocystic Breast Changes Fibrocystic breast changes are changes in breast tissue that can cause breasts to become swollen, lumpy, or painful. This can happen due to buildup of scar-like tissue (fibrous tissue) or the forming of fluid-filled lumps (cysts) in the breast. Fibrocystic breast changes can affect one or both breasts. The condition is common, and it is not cancer. What are the causes? The exact cause of fibrocystic breast changes is not known. However, this condition may be: Related to the female hormones estrogen and progesterone. Influenced by family traits that get passed from parent to child (inherited). What are the signs or symptoms? Symptoms of this condition include: Tenderness, swelling, mild discomfort, or pain. Rope-like tissue that can be felt when touching the breast. Lumps in one or both breasts. Changes in breast size. Breasts may get larger before a menstrual period and smaller after a menstrual period. Discharge from the nipple. Symptoms of this condition may affect one or both breasts and are usually worse before menstrual periods start. Symptoms usually get better toward the end of menstrual periods. How is this diagnosed? This condition is diagnosed based on your medical history and a physical exam of your breasts. You may also have tests, such as: A breast X-ray (mammogram). Ultrasound. MRI. Removing a small sample of tissue from the breast for tests (breast biopsy). This may be done if your health care provider thinks that something else may be causing changes in your breasts. How is this treated? Often, treatment is not needed for this condition. In some cases, however, treatment may be needed, including: Taking qxpu-kns-xipviai pain medicines to help relieve pain or discomfort. Limiting or avoiding caffeine. Foods and beverages that contain caffeine include chocolate, soda, coffee, and tea. Reducing sugar and fat in your diet. Treatment may also include: A procedure to remove fluid from a cyst that is causing pain (fine needle aspiration). Surgery to remove a cyst that is large or tender or does not go away. Medicines that may lower the amount of female hormones. Follow these instructions at home: Self care Check your breasts after every menstrual period. If you do not have menstrual periods, check your breasts on the first day of every month. Feel for changes in your breasts, such as: More tenderness. A new growth. A change in size. A change in an existing lump. General instructions Take zblf-qsp-bheulby and prescription medicines only as told by your health care provider. Wear a well-fitting support or sports bra, especially when exercising. If told by your health care provider, decrease or avoid caffeine, fat, and sugar in your diet. Keep all follow-up visits as told by your health care provider. This is important. Contact a health care provider if: You have fluid leaking from your nipple, especially if it is bloody. You have new lumps or bumps in your breast. Your breast becomes enlarged, red, and painful. You have areas of your breast that pucker inward. Your nipple appears flat or indented. Get help right away if: You have redness of your breast and the redness is spreading. Summary Fibrocystic breast changes are changes in breast tissue that can cause breasts to become swollen, lumpy, or painful. This condition may be related to the female hormones estrogen and progesterone. With this condition, it is important to examine your breasts after every menstrual period. If you do not have menstrual periods, check your breasts on the first day of every month. This information is not intended to replace advice given to you by your health care provider. Make sure you discuss any questions you have with your health care provider. Document Revised: 08/17/2020 Document Reviewed: 08/17/2020 [employer] Patient Education 2021 [employer]. Breast Self-Awareness Breast self-awareness means being familiar with how your breasts look and feel. It involves checking your breasts regularly and reporting any changes to your health care provider. Practicing breast self-awareness is important. Sometimes changes may not be harmful (are benign), but sometimes a change in your breasts can be a sign of a serious medical problem. It is important to learn how to do this procedure correctly so that you can catch problems early, when treatment is more likely to be successful. All women should practice breast self-awareness, including women who have had breast implants. What you need: A mirror. A well-lit room. How to do a breast self-exam A breast self-exam is one way to learn what is normal for your breasts and whether your breasts are changing. To do a breast self-exam: Look for changes 1. Remove all the clothing above your waist. 2. wheel grinder front of a mirror in a room with good lighting. 3. Put your hands on your hips. 4. Push your hands firmly downward. 5. Compare your breasts in the mirror. Look for differences between them (asymmetry), such as: Differences in shape. Differences in size. Puckers, dips, and bumps in one breast and not the other. 6. Look at each breast for changes in the skin, such as: Redness. Scaly areas. 7. Look for changes in your nipples, such as: Discharge. Bleeding. Dimpling. Redness. A change in position. Feel for changes Carefully feel your breasts for lumps and changes. It is best to do this while lying on your back on the floor, and again while sitting or standing in the tub or shower with soapy water on your skin. Feel each breast in the following way: 1. Place the arm on the side of the breast you are examining above your head. 2. Feel your breast with the other hand. 3. Start in the nipple area and make - inch (2 cm) overlapping circles to feel your breast. Use the pads of your three middle fingers to do this. Apply light pressure, then medium pressure, then firm pressure. The light pressure will allow you to feel the tissue closest to the skin. The medium pressure will allow you to feel the tissue that is a little deeper. The firm pressure will allow you to feel the tissue close to the ribs. 4. Continue the overlapping circles, moving downward over the breast until you feel your ribs below your breast. 5. Move one finger-width toward the center of the body. Continue to use the - inch (2 cm) overlapping circles to feel your breast as you move slowly up toward your collarbone. 6. Continue the up-and-down exam using all three pressures until you reach your armpit. Write down what you find Writing down what you find can help you remember what to discuss with your health care provider. Write down: What is normal for each breast. Any changes that you find in each breast, including: The kind of changes you find. Any pain or tenderness. Size and location of any lumps. Where you are in your menstrual cycle, if you are still menstruating. General tips and recommendations Examine your breasts every month. If you are , the best time to examine your breasts is after a feeding or after using a breast pump. If you menstruate, the best time to examine your breasts is 5 7 days after your period. Breasts are generally lumpier during menstrual periods, and it may be more difficult to notice changes. With time and practice, you will become more familiar with the variations in your breasts and more comfortable with the exam. Contact a health care provider if you: See a change in the shape or size of your breasts or nipples. See a change in the skin of your breast or nipples, such as a reddened or scaly area. Have unusual discharge from your nipples. Find a lump or thick area that was not there before. Have pain in your breasts. Have any concerns related to your breast health. Summary Breast self-awareness includes looking for physical changes in your breasts, as well as feeling for any changes within your breasts. Breast self-awareness should be performed in front of a mirror in a well-lit room. You should examine your breasts every month. If you menstruate, the best time to examine your breasts is 5 7 days after your menstrual period. Let your health care provider know of any changes you notice in your breasts, including changes in size, changes on the skin, pain or tenderness, or unusual fluid from your nipples. This information is not intended to replace advice given to you by your health care provider. Make sure you discuss any questions you have with your health care provider. Document Revised: 04/23/2019 Document Reviewed: 04/23/2019 [employer] Patient Education 2021 [employer]. Extracted from:Title: Left Ear Canal Itching, Med Refills and Reinlistment Needs Author: RENEE GAMING PA Date: 05/16/22 1. A cute eczematoid otitis externa, left ear Orders: c iprofloxacin-dexamethasone otic(Ciprodex 0.3%-0.1% otic suspension), 4 drop(s), Ear-Left, BID, X 3 days, # 7.5 mL, 0 total refill(s), Acute, 4 drop(s) Ear-Left BID,x3 days, Pharmacy: [facility] [Last filled 05/16/22] 2. 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 L ow back pain Patient was counseled to go through MEPS program to determine any waiver that may be needed as patient . She will need to have new [facility] PCM initiate speciality referral for evaluation and documentation to provide as appropriate. 30 minutes [id number] was spent with patient today. Review of prior external notes from [facility] performed. Review of preventative care, chronic disease management and any outstanding orders performed. Review of [facility] scheduling needs, communication and patient portal reviewed. Medication reconciliation performed today. Refills provided appropriately for continuity of care. Patient was agreeable to today's plan of care with understanding and no additional questions. Follow-up to clinic as appropriate or as needed. Extracted from:Title: Neurology Office Visit Note Author: CURRY SMITH MD Date: 02/04/22 Orders: ocular lubricant(Refresh Dry Eye Therapy ophthalmic solution), 1 drop(s), Eye-Both, BID, PRN dry eyes, # 30 mL, 2 total refill(s), Maintenance, 1 drop(s) Eye-Both BID,PRN:as needed for dry eyes, Pharmacy: [facility] [Not filled] #dry eye 26 yo with episodic left eye blurring that resolved with blinking, consistent with dry eyes. Patient has no evidence of APD on exam, and visual gross are intact on bedside exam, no evidence of papilledema. Recommend follow up with ophthalmology for further ocular evaluation. I recommend trial of eye drops given that patient has resolution of symptoms with blinking. -refresh BID as needed -follow up in 6-8 weeks Extracted from:Title: SLAB INSTALLER Office Clinic Note Author: Alyssa Jama MD Date: 02/01/22 1. C ontraceptive counseling done Orders: norgestimate-ethinyl estradiol(Tri-Sprintec oral tablet), 1 tab(s), Oral, Daily, # 84 tab(s), 4 total refill(s), Maintenance, 1 tab(s) Oral Daily, Pharmacy: [facility] [Not filled] 26yo using a Mirena IUD for contraception who presents to the OBGYN clinic for IUD removal and to discuss resuming OCPs. --IUD removed without difficulty --No clue cells noted on wet prep, but patient currently without symptoms. Discussed and given handout on hydrogen peroxide vaginal douches if she continues to have reoccurrence --OCP prescriptions given, patient would like to start after her next period --Patient aware that if she has sex before OCP use she can get --f/u for yearly well women exams --f/u is she desires BTL in future Alyssa Jama MD [facility], [facility] Staff: Praneeth Church On the date of this encounter, I was immediately available to assist the resident in the care of the patient, and have reviewed the resident s findings and agree with the plan of care except where noted. Kirill Church MD Staff, [facility] 12/30/[address] [place] [address] Plan of Care List of future care activities from [facility] facilities. Additional future care activities may be listed in the Assessment and Plan section. Date/Time Care Activity Care Activity Detail Facili ty 01/10/2025 AMBULATORY - SURGERY AMBULATORY - SURGERY [facility] Functional Status Combined list of recent functional and cognitive assessments recorded at Department of Defense and Veterans Affairs (VA).VA Functional Parmer Measurement (FIM) Scale: 1 = Total Assistance (Subject = 0% +), 2 = Maximal Assistance (Subject = 25% +), 3 = Moderate Assistance (Subject = 50% +), 4 = Minimal Assistance (Subject = 75% +), 5 = Supervision, 6 = Modified Parmer (Device), 7 = Complete Parmer (Timely, Safely). Assessment Date/Time Source Assessment Type Assessment Skill Assessment Score Assessment Details No data available for this section
--- OUTSIDE RECORDS SUMMARY | 2024-12-29 19:21 | XMS_ITS | Encounter Summary ---
Author Name [facility] ([place] Address [address] [place] [address] Care Team Providers Care Datacap Developer Name Role Phone PRASHANT ADELAIDE Primary Care [...] Sorenson's Name Patient's Relationship to Policy Sorenson [address] Oct 20, 2020 ACTIVE DUTY [phone] DIONNA KERR SPOUSE Selected Encounter This section includes the information on record at [place] for the Encounter. 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 Date/Time Primary/Secondary Diagnosis Diagnosis Name Provider Source Nov 15, 2024 08:17 AM PRIMARY Embolism and thrombosis of renal vein RINKU SOMMER [facility] Plan of Treatment: Future Appointments (+ 6 months) and Future Tests (+/- 45 days) The Plan of Treatment section includes future care activities for the patient from all [facility] This section includes future appointments and future orders which are active, pending or scheduled. Future Appointments This section includes appointments that were scheduled to occur 6 months from the date of the Encounter, up to a maximum of 20 appointments. The data comes from all [facility]. Appointment Date/Time Appointment Type Appointme nt Facility Name Nov 22, 2024 01:30 PM AMBULATORY - NONE [facility] Nov 28, 2024 02:00 PM AMBULATORY - SURGERY [facility] Jan 10, 2025 09:20 AM AMBULATORY - SURGERY [facility] January 31, 2025 11:00 AM AMBULATORY - MEDICINE [facility] Active, Pending, and Scheduled Orders This section includes a listing of several types of active, pending, and scheduled orders, including clinic medications orders, diagnostic test orders, procedure orders and consult orders; where the start date of the order is 45 days before the date of the Encounter or 45 days after the date of theEncounter. The data comes from all [facility]. Test Date/Time Test Type Test Details Facility Name Nov 15, 2024 06:00 AM Laboratory - Chemi stry Order TEST URINE (MA-STL) URINE YELLOW STAT [facility] Nov 18, 2024 12:00 AM Laboratory - Chemi stry Order URINALYSIS (STL-PB) URINE [facility] Nov 18, 2024 12:00 AM Laboratory - Microbiology Order C&S URINE URINE,CLEAN CATCH [facility] Nov 18, 2024 12:00 AM Laboratory - Chemi stry Order TEST URINE (MA-STL) URINE YELLOW [facility] Lab Results: +/- 30 days of the encounter This section includes the Chemistry and Hematology Lab Results on record with [place] for the patient. Radiology Reports and Pathology Reports are provided separately, in subsequent sections. Lab Results This section contains the Chemistry/Hematology Results that were resulted 30 days before or 30 daysafter the date of the Encounter. Date/Time Source Result Type Result - Unit Interpretation Reference Range Specimen Type Comment Nov 22, 2024 01:16 PM [facility] I-STAT, CREAT (STL-MA) BLOOD Specimen Type: BLOOD Comment: Test Performed by: [id number] Meter #: [id number] Ordering Provider: SUKHJINDER GLEZ Report Released Date/Time: Nov 22, 2024 03:22 PM Reporting Lab: [facility] [address] [facility] [id number] Performing Lab: [facility] [address] [facility] [id number] I-STAT, CREAT (STL-MA) 0.8 mg/dL 0.7-1.3 Nov 15, 2024 06:20 AM [facility] POC CLINITEST HCG URINE Specimen Type: URINE Comment: Test Performed by: [id number] Meter #: [id number] Ordering Provider: KWESI GONZALES Report Released Date/Time: Nov 15, 2024 06:26 AM Reporting Lab: [facility] [address] [facility] [id number] Performing Lab: [place] [address] [facility] [id number] POC CLINITEST HCG Negative Negative Vital Signs: All taken on the encounter date This section contains inpatient and outpatient Vital Signs collected on the date of the Encounter. Date/Time Temperature Pulse Blood Pressure Respiratory Rate SP02 Pain Height Weight Body Mass Index Source Nov 15, 2024 10:00 AM 98 82 114/81 19 100 0 [facility] Nov 15, 2024 07:00 AM 98.1 60 111/74 16 100 6 66 157.2 25 [facility] Social History: Smoking Status (Most current) and Tobacco Use (All prior to encounter date) This section includes the most current, and the historical, smoking and tobacco- related health factors from the [place] facility where the Encounter took place. Current Smoking Status This section includes the most current smoking, or tobacco-related health factor, from the [place] facility where the Encounter took place. Date/Time Current Smoking Status Comment Facil ity Jul 31, 2023 02:36 AM ORYX ADMIT TOBACCO SCREEN YES [facility] Tobacco Use History This section includes a history of the smoking, or tobacco-related health factors, that were collected on or before the date of the Encounter. The data comes from the [place] facility where the Encounter took place. Date/Time Smoking Status/Tobacco Use Comment F acility Jul 31, 2023 02:36 AM ORYX ADMIT TOBACCO USE CIGS GR 5D [facility] Jul 31, 2023 02:36 AM ORYX DAILY TOBACCO PRICING ASSOCIATE REFUSED [facility] Jul 31, 2023 02:36 AM ORYX DAILY TOBACCO MEDS REFUSED [facility] Radiology Reports: +/- 30 [...] the Encounter. The data comes from all [place] treatment facilities. Date/Time Radiology Report Provider Source Nov 22, 2024 01:[address] ABD PEL W/CONT & 3D: SYLVESTERLASHELL [id number] -[id number] F Exm Date: NOV 22, 2024@13:04 Req Phys: POLLY TAMAYO Loc: [place]-VASCULAR SURG II (Req'g Loc Img Loc: [place]AG[facility] [place] Service: Unknown Screen: Patient answered no [facility], [facility] [address] [place] [address] (Case [id number] COMPLETE) CT ABDOMEN AND PELVIS W/CONTRAST (CT Detailed) CPT:67028 Contrast Media : Non-ionic Iodinated Reason for [...] 25, 2024 Date Verified: NOV 25, 2024 Flavoring Maker E-Sig:/ES/SHEELA NOBLE MD Report: Spiral axial imaging [...] Primary Interpreting Staff: SHEELA NOBLE MD, Radiologist (Flavoring Maker) /[facility] SHEELA NOBLE [facility] Nov 15, 2024 06:38 AM FLUOROS(SEPARATE PROCEDURE),UP TO 1 HOUR: LASHELL KERR [id number] -1995 F Exm Date: NOV 15, 2024@06:38 Req Phys: KWESI GONZALES Pat Loc: OP Unknown/11-18-2024@12:32 Img Loc: -MAIN RADIOLOGY SUITE Service: Unknown Screen: Patient answered no [facility], [address] [place] [address] (Case [id number] COMPLETE) FLUOROS(SEPARATE PROCEDURE),UP TO(RAD Detailed) CPT:71194 CPT Modifiers : TC TECHNICAL COMPONENT Reason for Study: venogram Clinical History: Report Status: Verified Date Reported: NOV 18, 2024 Date Verified: NOV 18, 2024 Flavoring Maker E-Sig: Report: Fluoroscopy was provided to another [...] Interpreting Staff: SHERLYN TAYLOR, RADIOLOGIST Verified by banbury mixer operator for SHERLYN TAYLOR /ANDREW TAYLOR,SHERLYN [facility] Encounter Notes: All associated encounter notes This section contains the clinical notes associated to the Encounter. Date/Time Encounter Note(s) Provider Source Nov 15, 2024 08:18 AM NURSING NOTE: LOCAL TITLE: [facility] NSG IV INSERTION AND MAINTENANCE STANDARD TITLE: NURSING NOTE DATE OF NOTE: NOV 15, 2024@08:18 ENTRY DATE: NOV 15, 2024@08:19:03 AUTHOR: RINKU SOMMER COSIGNER: URGENCY: STATUS: COMPLETED Version 2.2 Charting in accordance with [place] APPROVED [place] STANDARD (SDAES) ACUTE INPATIENT/REHABILITATION NURSING ADMISSION SCREENING, ASSESSMENT, AND STANDARDS OF CARE IV Line Insertion and Maintenance Peripheral IV Line #1: Insertion: Date/Time: Oct Inserted by (name): FLAQUITO Mendez Location: Right, Forearm Gauge: 20 /es/ RINKU YUN RN REGISTERED NURSE Signed: 11/15/2024 08:19 RINKU SOMMER [facility] Nov 15, 2024 07:56 AM SURGERY NURSING [place] OCEDURE NOTE: LOCAL TITLE: YURI AETC PREOPERATIVE-PREPROCEDURAL STL STANDARD TITLE: SURGERY NURSING PROCEDURE NOTE DATE OF NOTE: NOV 15, 2024@07:56 ENTRY DATE: NOV 15, 2024@07:56:15 AUTHOR: RINKU SOMMER EXP COSIGNER: URGENCY: STATUS: COMPLETED Y[facility] AETC PREOPERATIVE-PREPROCEDURAL STL Has ADDENDA AETC PRE-OPERATIVE/PRE-PROCEDURA L ASSESSMENT TEST Procedure:Left renal venogram Service:Vascular/Neshakhary ARRIVAL TIME: Oct@06:00 VITAL SIGNS: Temperature:98.1 F [36.7 C] (11/15/2024 07:00) Blood Pressure:111/74 (11/15/2024 07:00) Pulse:60 (11/15/2024 07:00) Respirations:16 (11/15/2024 07:00) 100% (11/15/2024 07:00) Weight:157.2 lb [71.30 kg] (11/15/2024 07:00) Responsible Constitution Party(City Engineer) Name:Balbir Blevins Contact number: [phone] Current residence Home NPO since Midnight Yes Allergies: CEPHALOSPORIN 1ST GENERATION Are you taking any blood thinners:No Medications taken since Midnight:No History of illicit drug use? No History of cancer diagnosis? No History of radiation therapy to planned surgical field(s)?No History of sleep apnes?No Dentures:No Hearing Aides:No Ambulatory Aides:No Personal Belongings Comment:Belongings taken to patients post op room on 4N Labs completed:Yes Female patient Child bearing:Yes If yes, was urine HCG sent lab.Oct@06:30 Comment:Negative Diabetes:No Do you currently have any open or draining wounds? No Pain Yes If yes Acute Chronic Comment:Left flank pain 5/10, back 6/10 Do you have a history of tobacco use?Yes No tobacco use in the last 12 months If yes how often: Comment:Quit 2 years ago Do you have an Advance Directive?Yes Nursing care plan STANDARD OF CARE / PRACTICE INITIAL NURSING DIAGNOSIS: AETC Alteration in Comfort and Knowledge Related to: Invasive procedure: see above EXPECTED OUTCOMES: Patient Will: X Verbalize an understanding of procedure. Target Date:Oct X Verbalize effective use of pain medication. Target Date:Oct X Be free of complications post-procedure. Target Date:Oct X Verbalize knowledge of discharge instructions and follow-up care. Target Date:Oct NURSING INTERVENTIONS: PHYSIOLOGICAL 1. Assess and monitor vital signs and respiratory status pre and post-procedure. INITIATED 2. Assess need for PT/OT instruction prior to procedure (i.e.,crutch training). INITIATED 3. Assess incision site/dressing for drainage, bleeding, hematoma, and site pain post-procedure. INITIATED 4. Initiate appropriate wound care post-procedure. INITIATED 5. Maintain IV access and parenteral infusions pre and post- procedure. INITIATED 6. Assess post-procedure for adequate oral intake, urinary elimination, and return of prior motor function. INITIATED COMFORT 7. Monitor for pain (location, intensity, frequency and precipitating factors). INITIATED 8. Administer, evaluate and document the effectiveness of pain medication. INITIATED SAFETY 9. Keep call light within reach and reinforce calling for assistance as needed. INITIATED 10. Explain and reinforce smoking policy. INITIATED 11. Other: INITIATED INFECTION CONTROL 12. Maintain Standard Precautions and explain need to patient/significant others. INITIATED EQUIPMENT NEEDS 13. Assess and provide equipment/supplies required to provide safe patient care. INITIATED KNOWLEDGE (PATIENT EDUCATION) 14. Provide teaching specific to patient's needs: X NPO status X IV therapy X Pain management Early mobility Turning, coughing and deep breathing Incentive spirometer MELYSSA hose Other: INITIATED 15. Instruct patient/significant other on homecare requirements. INITIATED 16. Signs and symptoms to report to health care team. INITIATED PSYCHOSOCIAL / FUNCTIONAL 17. Encourage feedback related to patient's expectations/concerns related to procedure. INITIATED 18. Assess patient/significant other's ability to manage and comply with discharge instructions. INITIATED DISCHARGE PLANNING 19. Assure appropriate transportation available upon discharge. INITIATED 20. Encourage patient to keep all follow-up clinic appointments. INITIATED 21. Continue discharge planning/aftercare with patient/significant other using interdisciplinary approach: X Physician/Service: Vascular/Theresa PT OT Community Support Groups: Other: INITIATED 22. Other interventions specific to patient: INITIATED THE ABOVE EXPECTED OUTCOMES (GOALS) HAVE BEEN MUTUALLY SET WITH: Patient Pt completed CHG wipes per protocol. HCG collected and sent. Result negative. Ordered antibiotics at bedside. Aquacel applied to coccyx. Bed low and locked. Call light in reach. @0728 Passport to care completed. Pt stable at this time. Pt off floor to procedure via strecher with OR nurses. Belongings in post op room on 4N. /es/ RINKU YUN RN REGISTERED NURSE Signed: 11/15/2024 08:18 11/15/2024 ADDENDUM STATUS: COMPLETED 1000 Patient arrived to floor via stretcher, accompanied by escort, transferred to bed safely. A&O x 3, denies pain, nausea & sob, vitals wnls, right sided neck drsg remains c/d/i. Tolerating PO intake well. @ bedside, awaiting discharge. Bed low, locked, call light within reach. Will continue to monitor. 1100 Reviewed discharge instructions with patient. PAL removed intact. Patient left floor ambulatory, with all personal belongings. /astrid/ RAGHAV JENKINS RN REGISTERED NURSE Signed: 11/15/2024 11:13 11/15/2024 ADDENDUM STATUS: COMPLETED AETC DISCHARGE NURSING DIAGNOSIS: AETC Alteration in Comfort and Knowledge Related to: Invasive procedure: Right renal venogram EXPECTED OUTCOMES MET BY PATIENT: Verbalizes an understanding of procedure. , Verbalizes effective use of pain medication. , Is free of complications post-procedure., Verbalizes knowledge of discharge instructions and follow-up care., Patient/significant other demonstrates procedures / skills for effective home care., Decreased level of anxiety related to discharge/home care achieved. Comment: ASSESSMENT: Patient is awake and oriented: Yes Vital signs stable: Yes Temperature < 101 F: Yes Wound site stable: Yes Tolerates fluids: Yes Minimal nausea: Yes Able to urinate: Yes Able to ambulate: Yes Patient is free of dyspnea: Yes Patient is free of pain: Yes Pain Score:0 Comment: DISCHARGE: Discharge Summary Date/Time:Oct@11:14 Discharge instruction sheet given to patient: Yes Patient instructed on:Follow up, meds, activity, wound care, worsening of symptoms. Mode of discharge: ambulatory Accompanied by: Significant Other Follow-up appointment: Clinic: Vascular Date/Time: /astrid/ RAGHAV JENKINS RN REGISTERED NURSE Signed: 11/15/2024 11:17 RINKU SOMMER [facility] Nov 15, 2024 06:01 AM SURGERY NOTE: LOCAL TITLE: VASCULAR SURGERY II NOTE STL STANDARD TITLE: SURGERY NOTE DATE OF NOTE: NOV 15, 2024@06:01 ENTRY DATE: NOV 15, 2024@06:01:44 AUTHOR: POLLY TAMAYO COSIGNER: KWESI GONZALES URGENCY: STATUS: COMPLETED HPI: Lashell Kerr is a 29 year old female with PMHx chronic back pain and left UPJ s/p pyleoplasty (2019) presenting with recurrent left flank pain presenting for left venogram. Patient was incidentally found to have left [...] in BM, dysuria, hematuria, or abdominal pain. Patient was last seen in clinic on 10/31/2024 He denies recent fevers, chills, weight/appetite changes, chest pain, dyspnea, nausea, vomiting, abdominal pain, changes in bowel habits, blood per rectum, hematuria and dysuria. Patient states they have been NPO since midnight. 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 pior laparoscopic incisions well healed, no signs of infection left flank pain with prior nephrostomy tube scar well healed with no signs of infection however tenderness to palpation Pulses: palpable femoral/radial bilaterally MSK: extremities x4 WWP, non-edematous Psych: appropriate [...] the report. READING PHYSICIAN: Gideon Lopez M.D. 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 Risks, benefits and alternatives discussed, with risks including but not limited to pain, infection, bleeding, damage to surrounding structures and need for additional procedures. They voice understanding and wish to proceed with the operation. - NPO since midnight - Site marking left groin - Preoperative abx: Clindamycin - Informed consent obtained - Proceed to OR with Dr. Gonzales for left venogram with intravascular pressure measurements /es/ POLLY MOTHKUR RESIDENT PHYSICIAN Signed: 11/15/2024 06:22 /astrid/ KWESI GONZALES Staff Physician, Vascular Surgery Cosigned: 11/15/2024 09:20 POLLY TAMAYO [facility]
--- OUTSIDE RECORDS SUMMARY | 2024-12-29 19:21 | XMS_ITS | Patient Health Record ---
Author Organization [facility] [place] Address [address] [facility] [place] [address] Care Team Providers Care Ocean Clam Boat Captain Name Role Phone Christophe Sánchez Medical Primary Care Provider Farida Forde M.D. [phone] Allergies Allergen (clinical drug ingredient) Drug/Non Drug Allergy documented on EMR Reaction Allergy Type Onset Date Status cefepime Cefepime HCl Dyspnea Drug Allergy Acti ve Reason For Referral No Information Medications Medication SIG (Take, Route, Frequency, Duration) Notes Start Date End Date Status Pantoprazole Sodium 20 MG 1 tablet Orall y Once a day for 30 day(s) Active Social History Tobacco Use: Social History Observation Description Date Details (start date - stop date) Never Smoker NA - NA Yazidi: Question Answer Notes Yazidi No moravian bel iefs that would impact health care. Education: Question Answer Notes Level of Education: Finished High School Language: Question Answer Notes Languages spoken: Turkmen Tobacco Use: Question Answer Notes Are you a: nonsmoker Sexual Hx: Question Answer Notes Had sex in the last 12 months (vaginal, oral, or anal)? Yes with Men only Use protection? No Have you ever had an STD? No Alcohol Screening: Question Answer Notes Did you have a drink containing alcohol in the p ast year? 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 Problem 67957620 Pyelonephritis (N12) Active confirmed Problem 322805580 Enterococcus faecalis infection (B95.2) Active confirmed Problem 46040281 Hydronephrosis, left (N13.30) Active confirmed Problem 23701208 Pseudomonas infection (A49.8) Active confirmed Problem 430014348 Acute UTI (urina ry tract infection) (N39.0) Active confirmed Plan Of Treatment No Information Insurance Providers Payer Name Payer Address Payer Phone Subscriber Number Group Number Insured Name Patient Relationship to Insured Coverage Start Date Coverage End Date [facility] [address] [place] [address] [id number] DAVID PHAN [id number] SELF / SAME PATIENT Medical (General) History Medical History History ICD Code UTI KIDNEY STONES HYDRONEPHROSIS Surgical History Surgery Date(Month/Year) NEPROSTOMY TUBE PLACEMENT CYSTOSCOPY LEFT STENT REMOVAL nephrostomy tube change Hospitalization History Reason Date(Month/Year) of child garrett urine pseudomaonas sepsis from bladder infection
--- OUTSIDE RECORDS SUMMARY | 2024-12-29 19:21 | XMS_ITS | Encounter Summary ---
Author Name [facility] [place] [facility] [place] Address [address] [place] [address] Care Team Providers Care Supervisor Engraving Name Role Phone PRASHANT ADELAIDE Primary Care [...] Sorenson's Name Patient's Relationship to Policy Sorenson [address] Oct 20, 2020 ACTIVE DUTY [id number] [phone] DIONNA PHAN SPOUSE Selected Encounter This section includes the information on record at [place] for the Encounter. Date/Time Encounter Type Encounter Description Reason Provider Source Sep 06, 2024 03:00 PM PSYTX W PT 30 MINUTES PCMHI INDIV ICD-10-CM F41.1 Generalized anxiety disorder LIDIA CARRILLO [facility] Encounter Template Text not used by [facility] Assessments - Encounter Diagnoses This section includes the primary and secondary diagnoses documented for the Encounter. Date/Time Primary/Secondary Diagnosis Diagnosis Name Provider Source Sep 06, 2024 04:17 PM PRIMARY Generalized anxiety disorder LIDIA CARRILLO [facility] Plan of Treatment: Future Appointments (+ 6 months) and Future Tests (+/- 45 days) The Plan of Treatment section includes future care activities for the patient from [facility] [place] [facility] This section includes future appointments and future orders which are active, pending or scheduled. Future Appointments This section includes appointments that were scheduled to occur 6 months from the date of the Encounter, up to a maximum of 20 appointments. The data comes from all [place] treatment [facility]. Appointment Date/Time Appointment Type Appointme nt Facility Name Sep 25, 2024 05:00 PM AMBULATORY - NONE [facility] Oct 04, 2024 10:30 AM AMBULATORY - MEDICINE [facility] Oct 18, 2024 09:20 AM AMBULATORY - SURGERY [facility] Oct 24, 2024 09:00 AM AMBULATORY - NONE [facility] Oct 31, 2024 03:00 PM AMBULATORY - SURGERY . [facility] Nov 01, 2024 11:00 AM AMBULATORY - MEDICINE [facility] Nov 15, 2024 06:00 AM AMBULATORY - NONE [facility] Nov 22, 2024 01:30 PM AMBULATORY - NONE [facility] Nov 28, 2024 02:00 PM AMBULATORY - SURGERY . [facility] Jan 10, 2025 09:20 AM AMBULATORY - SURGERY [facility] January 31, 2025 11:00 AM AMBULATORY - MEDICINE [facility] Active, Pending, and Scheduled Orders This section includes a listing of several types of active, pending, and scheduled orders, including clinic medications orders, diagnostic test orders, procedure orders and consult orders; where the start date of the order is 45 days before the date of the Encounter or 45 days after the date of theEncounter. The data comes from all [facility]. Test Date/Time Test Type Test Details Facility Name Aug 19, 2024 12:00 AM Laboratory - Chemi stry Order HCG QUANT GOLD/RED SST SERUM SP [facility] Aug 19, 2024 12:00 AM Laboratory - Chemi stry Order TEST URINE (MA-STL) URINE YELLOW SP [facility] Lab Results: +/- 30 days of the encounter This section includes the Chemistry and Hematology Lab Results on record with [place] for the patient. Radiology Reports and Pathology Reports are provided separately, in subsequent sections. Lab Results This section contains the Chemistry/Hematology Results that were resulted 30 days before or 30 daysafter the date of the Encounter. Date/Time Source Result Type Result - Unit Interpretation Reference Range Specimen Type Comment Oct 04, 2024 12:48 PM [facility] LIPID PANEL (STL) PLASMA Specimen Type: PLASMA Comment: No hemolysis noted. Ordering Provider: SUKHJINDER GLEZ Report Released Date/Time: Oct 04, 2024 10:09 AM Reporting Lab: [address] [address] Performing Lab: [address] [address] CHOLESTEROL 181 mg/dL 0-200 TRIGLYCERIDE 85 mg/dL 0-150 CALCULATED LDL 114 mg/dL HDL(New) 50 mg/dL >40 Oct 04, 2024 12:48 PM [facility] URINALYSIS (STL-PB) URINE Specimen Type: URIN E No comment entered. Ordering Provider: SUKHJINDER GLEZ Report Released Date/Time: Oct 04, 2024 10:09 AM Reporting Lab: [address] [address] Performing Lab: [address] [address] URINE COLOR Light-Yellow Yellow U.BILIRUBIN Negative mg/dL Negative U.PH 6.5 5.0-8.0 APPEARANCE Clear Clear U.NITRITE Negative mg/dL Negative URN.GLUCOSE Normal mg/dL Negative URN.PROTEIN Negative mg/dL URN.UROBILINOGEN Normal mg/dL Normal URN.BLOOD Negative mg/dL Negative-Trace URN.KETONES Negative mg/dL Negative-Trac e URN.LEUK.EST. Negative mg/dL Negative-Tr bernie URN.SPECIFIC GRAVITY 1.014 Oct 04, 2024 12:48 PM [facility] CBC BLOOD Specimen Type: BLOOD No comment entered. Ordering Provider: SUKHJINDER GLEZ Report Released Date/Time: Oct 04, 2024 10:09 AM Reporting Lab: [address] [address] Performing Lab: [address] [address] WBC 8.4 10*3/uL 3.6-11.2 RBC 4.41 10*6/uL [...] 0.00-0. 20 Oct 04, 2024 12:48 PM [facility] HGA1C BLOOD Specimen Type: BLOOD No comment entered. Ordering Provider: SUKHJINDER GLEZ Report Released Date/Time: Oct 04, 2024 10:09 AM Reporting Lab: [address] [address] Performing Lab: [address] [address] HGA1C 5.4 4.0-6.0 Oct 04, 2024 12:48 PM [facility] TSH W/ REFLEX FT4 (STL) PLASMA Speci men Type: PLASMA No comment entered. Ordering Provider: SUKHJINDER GLEZ Report Released Date/Time: Oct 04, 2024 10:09 AM Reporting Lab: [address] [address] Performing Lab: [address] [address] TSH 0.351 u[IU]/mL L 0.47-5 Oct 04, 2024 12:48 PM [facility] FREE T4 (STL) PLASMA Specimen Type: PLASMA No comment entered. Ordering Provider: SUKHJINDER GLEZ Report Released Date/Time: Oct 04, 2024 10:09 AM Reporting Lab: [address] [address] Performing Lab: [address] [address] FREE T4 (STL) 1.02 ng/mL 0.7-1.48 Oct 04, 2024 12:48 PM [facility] TOTAL T3 (STL) PLASMA Specimen Type: PLASMA No comment entered. Ordering Provider: SUKHJINDER GLEZ Report Released Date/Time: Oct 04, 2024 10:09 AM Reporting Lab: [address] [address] Performing Lab: [address] [address] TOTAL T3 (STL) 118.11 ng/dL 58-159 Oct 04, 2024 12:48 PM [facility] VITAMIN D, 25-HYDROXY SERUM Specimen Type: SE RUM Comment: The listed sex of this patient may not be a typical indication for this test. Therefore, reference ranges or interpretive criteria listed may not be valid. Clinical correlation suggested. Ordering Provider: SUKHJINDER GLEZ Report Released Date/Time: Oct 04, 2024 10:09 AM Reporting Lab: [facility] [address] [place] [phone] Performing Lab: [address] [address] VITAMIN D, 25-HYDROXY 40.1 ng/mL 30-96 Oct 04, 2024 12:48 PM [facility] TEST URINE (MA-STL) URINE Specimen Type: URINE No comment entered. Ordering Provider: SUKHJINDER GLEZ Report Released Date/Time: Oct 04, 2024 10:11 AM Reporting Lab: [address] [address] Performing Lab: [address] [address] Qualitative Test NEG NEGAT BRIANNE Oct 04, 2024 12:48 PM [facility] HCG QUANT SERUM Specimen Type: SERUM Comment: The listed sex of this patient may not be a typical indication for this test. Therefore, reference ranges or interpretive criteria listed may not be valid. Clinical correlation suggested. Ordering Provider: SUKHJINDER GLEZ Report Released Date/Time: Oct 04, 2024 10:11 AM Reporting Lab: [address] [address] Performing Lab: [address] [address] HCG QUANT <1.20 m[IU]/mL 0-5 Oct 04, 2024 12:48 PM [facility] COMPREHENSIVE METABOLIC PANEL PLASMA Specimen Type: PLASMA Comment: No hemolysis noted. Ordering Provider: SUKHJINDER GLEZ Report Released Date/Time: Oct 04, 2024 10:09 AM Reporting Lab: [address] [address] Performing Lab: [address] [address] CREATININE 0.59 mg/dL L 0.6-1.1 UREA NITROGEN [...] and tobacco- related health factors from the [place] facility where the Encounter took place. Current Smoking Status This section includes the most current smoking, or tobacco-related health factor, from the [facility] facility where the Encounter took place. Date/Time Current Smoking Status Comment Facil ity Dec 22, 2022 01:00 PM VA-TOBACCO USE ADVICE [facility] Tobacco Use History This section includes a history of the smoking, or tobacco-related health factors, that were collected on or before the date of the Encounter. The data comes from the [place] facility where the Encounter took place. Date/Time Smoking Status/Tobacco Use Comment F acility Dec 22, 2022 01:00 PM VA-TOBACCO USE 5 TO 15 YEARS [facility] Dec 22, 2022 01:00 PM VA-TOBACCO USE ADVICE [facility] Dec 22, 2022 01:00 PM VA-TOBACCO USE DIRECTOR OF PERSONNEL NO [facility] Dec 22, 2022 01:00 PM VA-TOBACCO USE MED NO [facility] Dec 22, 2022 01:00 PM VA-TOBACCO USER EVERY DAY [facility] Pathology Reports: +/- 30 days of [...] the Encounter. The data comes from all [place] treatment facilities. Date/Time Pathology Report Provider Source Oct 04, 2024 12:48 PM LR MICROBIOLOGY RE PORT: Accession [UID]: [id number] [[id number]] Received: Oct 04, 2024@17:34 Collection sample: URINE,CLEAN CATCH Collection date: Oct 04, 2024 12:48 Site/Specimen: URINE Provider: SUKHJINDER GLEZ Test(s) ordered: C&S URINE..................... completed: Oct 06, 2024 13:33 * BACTERIOLOGY FINAL REPORT => Oct 06, 2024 14:23 TECH CODE: [id number] Bacteriology Remark(s): PW 10/06/24 CULTURE SHOWS NO GROWTH IN 1 DAY. =--=--=--=--=--=--=--=--=--=--=-- =--=--=--=--=--=--=--=--=--=--=-- =--=--=--=-- Performing Laboratory: Bacteriology Report [facility]formed By: [facility] [address] [place] [address] CLIA# [id number] 5 [facility] [address] [place] [address] PAMELA HICKS [facility] Encounter Notes: All associated encounter notes This section contains the clinical notes associated to the Encounter. Date/Time Encounter Note(s) Provider Source Sep 06, 2024 03:18 PM PSYCHOLOGY OUTPATI ENT NOTE: LOCAL TITLE: PRIMARY CARE PSYCHOLOGY NOTE [facility] STANDARD TITLE: PSYCHOLOGY OUTPATIENT NOTE DATE OF NOTE: SEP 06, 2024@15:18 ENTRY DATE: SEP 06, 2024@15:18:25 AUTHOR: LIDIA CARRILLO EXP COSIGNER: URGENCY: STATUS: COMPLETED Follow-up Template NAME: DAVID PHAN DATE OF : Mar TIME SPENT WITH PATIENT: 30 minutes DIAGNOSIS BEING TREATED: AGAPITO CPT Code: 18280 NATURE OF ENCOUNTER: follow up visit SESSION FORMAT: [X] Ycpy-yn-Cydo [ ] Video Telehealth [ ]Phone Confirmed [place]'s location and phone number for virtual appointment. [ ]Yes [X]N/A NOTE: Use separate CVT template, if appropriate SESSION NUMBER: 2 INTERVENTION/TREATMENT PROVIDED [X] [place] [X] Shared [...] NOTE: Describe relevant historical developments below reported ongoing practice of diaphragmatic breathing. Today's session focused on teaching progressive muscle relaxation utilizing the hands and the feet muscles. [place]'s PCP joined session to discuss prescribing antianxiety medication. [place] will start with duloxetine and alprazolam. RTC submitted for follow-up appointment. [place] indicated understanding how to practice strategies in between sessions. [place] was also receptive to cognitive strategies covered such as rescheduling the worry, and identifying if an item is within her control, her influence, or concerns. ASSESSMENT MEASURES USED: [ ] Measure in Mental Health Ear Machine Operator. See accompanying Mental Health Diagnostic Study for details. [ x] Measure(s) sent via [facility], electronically following visit. agrees to asynchronous electronic administration; when returned, [...] use of coping skills. PROGRESS TOWARDS GOAL: Slight progress noted today. 2. GOAL/OBJECTIVES: PROGRESS TOWARDS GOAL: 3. GOAL/OBJECTIVES: PROGRESS TOWARDS GOAL: RESPONSE TO INTERVENTIONS: Veterans participation/engagement: [ x ]The participated actively in the current interventions. [ ]Other: The [place] continues to consent to the current plan of care: Yes Comments: RISK ASSESSMENT: [x ] NO CHANGE IN RISK FACTORS Related to Suicide or Homicide. [place] did not report any current suicidal/homicidal ideation, plan, or intent. [place] did not appear to be at imminent [...] of relevant risk and protective factors, the [place] did NOT appear to be at imminent risk for suicide or homicide at this time and IS sustainable at the current level of care. [ ] IS considered to be at INCREASED RISK for suicide or homicide based upon: -Actions/interventions taken to address risk and prevent harm include: -Emergency protocols initiated were: ASSIGNED WORK: RTC submitted for follow-up appointment. [place] to practice progressive muscle relaxation in between sessions. COLLABORATIVE RECOMMENDATIONS/PLAN: Collaboratively discussed outcomes related to assessment and treatment progress. Based on this discussion: [ x] No changes to plan of care. expressed agreement with therapy tasks and [id number] plan. [ ] Using shared decision making, and provider agreed to the following change in plan: Educated [place] on the risks, benefits, and possible complications related to changes to treatment plan. agreed to proceed with the change. [ ]YES [ ]NO It should be noted, this note was typed using a dictation software and there may be misspellings by mistake, as a result. /astrid/ Lidia Carrillo Psy.D. Staff Psychologist Signed: 09/06/2024 16:[address] [facility] Aug 27, 2024 01:50 PM MENTAL HEALTH DIAG NOSTIC STUDY NOTE: LOCAL TITLE: MENTAL HEALTH DIAGNOSTIC STUDY STANDARD TITLE: MENTAL HEALTH DIAGNOSTIC STUDY NOTE DATE OF NOTE: AUG 27, 2024@13:50:53 ENTRY DATE: AUG 27, 2024@13:50:53 AUTHOR: LIDIA CARRILLO EXP COSIGNER: URGENCY: STATUS: COMPLETED Assessments were sent to the via text/email. These assessments were completed by DAVID PAHN on their own device on 08/27/2024 9:11:57 AM. PATIENT HEALTH QUESTIONNAIRE-9 (PHQ-9) The patient reported some symptoms of depression; symptoms are not consistent with a major depressive episode. Patient reported being bothered by the following over the last 2 weeks: 1. Little interest or pleasure: Several Days 2. Feeling down, depressed or hopeless: Several Days 3. Trouble sleeping: Not at all 4. Tired, low energy: Several Days 5. Poor appetite, over-eating: Several Days 6. Feelings of failure, guilt: Several Days 7. Trouble concentrating: Several Days 8. Motor retardation, agitation: Several Days 9. Thoughts better off /hurting self: Not at all PHQ-9 total score = 7 1-4 = minimal symptoms 5-9= mild symptoms 10-14= moderate symptoms 15-19= moderately severe symptoms 20-27= severe depressive symptoms The patient stated that the depressive symptoms made it somewhat difficult to work, take care of things at home, or get along with others. GENERAL ANXIETY DISORDER-7 (AGAPITO-7) Patient reported being bothered by the following over the last two weeks: 1. Feeling nervous, anxious or on edge: Nearly every day 2. Not being able to stop or control worrying: Nearly every day 3. Worrying too much about different things: Nearly every day 4. Trouble relaxing: Nearly every day 5. Feeling restless (hard to sit still): Several days 6. Becoming easily annoyed or irritable: Nearly every day 7. Afraid as if something awful might happen: Nearly every day AGAPITO-7 total score = 19 0-4=minimal symptoms 5-9=mild symptoms 10-14=moderate symptoms 15-21=severe symptoms The patient stated that the anxiety symptoms made it somewhat difficult to work, take care of things at home, or get along with others. PTSD CRITERION A Briefly identify the worst event: Experiencing a of a family member How long ago did it happen: 9 months ago Did it involve actual or threatened , serious injury, or sexual violence: No How did you experience it: I witnessed it If the event involved the of a close family member or close friend, was it due to some kind of accident or violence, or was it due to natural causes: Natural causes PTSD CHECKLIST (PCL-5) - MONTHLY Patient reported being bothered by the following over the past month: 1. Disturbing memories: A little bit 2. Disturbing dreams: A little bit 3. Re-experiencing events: Not at all 4. Cued distress: Not at all 5. Cued physical symptoms: Not at all 6. Avoiding internal reminders: Not at all 7. Avoiding external reminders: A little bit 8. Trouble with recall: Not at all 9. Negative beliefs: Not at all 10. Blaming self/others: Not at all 11. Negative feelings: Not at all 12. Loss of interest: Not at all 13. Feeling distant from others: Not at all 14. Feeling numb: Not at all 15. Feeling irritable: Not at all 16. Reckless behavior: Not at all 17. Being super-alert : Not at all 18. Feeling easily startled: A little bit 19. Difficulty concentrating: Not at all 20. Trouble sleeping: Not at all PCL-5 total score = 4 This measure assesses an individual's perception of the distress associated with possible PTSD symptoms. It is not used to diagnose PTSD. Symptoms are rated from 0-4 in terms of distress they cause the individual. Scores that are greater than or equal to 31-33 suggest that the may meet the criteria for a PTSD diagnosis. However, it is important to use caution when using this cutoff since it is possible for some Veterans with scores lower than 31-33 to meet criteria for PTSD. Additional testing using a structured diagnostic interview, such as the Clinician Administered PTSD Scale for DSM-5, is recommended to confirm diagnostic status. INSOMNIA SEVERITY INDEX (BERYL) Patient reported the severity of insomnia problems in the last two weeks as follows: 1. Difficulty falling asleep: None 2. Difficulty staying asleep: None 3. Problems waking up too early: Mild 4. Satisfaction with sleep: Satisfied 5. Impaired quality of life noticeable to others: Not at all Noticeable 6. Distressed by sleep problems: Not at all Worried 7. Interference with daily functioning: Not at all Interfering BERYL total score = 2 0-7 = No clinically significant insomnia 8-14 = Subthreshold insomnia 15-21 = Clinical insomnia (moderate severity) 22-28 = Clinical insomnia (severe) SNORING, TIRED, OBSERVED, BLOOD PRESSURE (STOP) The patient answered each question as follows: 1. Do you snore loudly: Yes 2. Do you often feel tired, fatigued, or sleepy during daytime: Yes 3. Has anyone observed you stop breathing during your sleep: No 4. Do you have or are you being treated for high blood pressure: No Total Score: 2 Scores range from 0 to 4, with scores of 2 or more indicating high risk of obstructive sleep apnea. ADULT ADHD SELF-REPORT SCALE V1.1-18 ITEM (ASRS-18) The patient reported the following over the last 6 months. 1. How often do you have trouble wrapping up the final details of a project, once the challenging parts have been done: Never 2. How often do you have difficulty getting things in order when you have to do a task that requires organization: Never 3. How often do you have problems remembering appointments or obligations: Never 4. When you have a task that requires a lot of thought, how often do you avoid or delay getting started: Never 5. How often do you fidget or squirm with your hands or feet when you have to sit down for a long time: Never 6. How often do you feel overly active and compelled to do things, like you were driven by a motor: Never 7. How often do you make careless mistakes when you have to work on a boring or difficult project: Never 8. How often do you have difficulty keeping your attention when you are doing boring or repetitive work: Never 9. How often do you have difficulty concentrating on what people say to you, even when they are speaking to you directly: Never 10. How often do you misplace or have difficulty finding things at home or at work: Never 11. How often are you distracted by activity or noise around you: Never 12. How often do you leave your seat in meetings or other situations in which you are expected to remain seated: Never 13. How often do you feel restless or fidgety: Never 14. How often do you have difficulty unwinding and relaxing when you have time to yourself: Sometimes 15. How often do you find yourself talking too much when you are in social situations: Never 16. When you're in a conversation, how often do you find yourself finishing the sentences of the people you are talking to, before they can finish them themselves: Sometimes 17. How often do you have difficulty waiting your turn in situations when turn taking is required: Rarely 18. How often do you interrupt others when they are busy: Never ADHD Screen: NEGATIVE (Part A Score >= 14 is positive) Total Score (range: 0-72): 5 (7%) Part A Score (0-24): 0 Part B Score (0-48): 5 Total Symptoms (0-18): 1 (6%) Inattentive Symptoms (0-9): 0 (0%) Hyperactive Impulsive Symptoms - Motor (0-5): 0 (0%) Hyperactive Impulsive Symptoms - Verbal (0-4): 1 (25%) /astrid/ Lidia Carrillo Psy.D. Staff Psychologist Signed: 09/06/2024 16:17 LIDIA CARRILLO [facility]
--- OUTSIDE RECORDS SUMMARY | 2024-12-29 19:21 | XMS_ITS | Encounter Summary ---
Author Name [place] Address [address] [place] [address] Care Team Providers Care Commercial Escrow Officer Name Role Phone ADELAIDE CERDA Primary Care [...] Sorenson's Name Patient's Relationship to Policy Sorenson [address] Oct 20, 2020 ACTIVE DUTY [id number] [phone] DIONNA PHAN SPOUSE Selected Encounter This section includes the information on record at [place] for the Encounter. Date/Time Encounter Type Encounter Description Reason Pro vider Source Dec 29, 2024 04:45 PM Outpatient Encounter TELEPHONE TRIAGE IHE Encounter Template Text not used by [facility] Plan of Treatment: Future Appointments (+ 6 months) and Future Tests (+/- 45 days) The Plan of Treatment section includes future care activities for the patient from all [place] [facility] This section includes future appointments and future orders which are active, pending or scheduled. Future Appointments This section includes appointments that were scheduled to occur 6 months from the date of the Encounter, up to a maximum of 20 appointments. The data comes from all [facility]. Appointment Date/Time Appointment Type Appointme nt Facility Name Jan 10, 2025 09:20 AM AMBULATORY - SURGERY [facility] January 31, 2025 11:00 AM AMBULATORY - MEDICINE [facility] Active, Pending, and Scheduled Orders This section includes a listing of several types of active, pending, and scheduled orders, including clinic medications orders, diagnostic test orders, procedure orders and consult orders; where the start date of the order is 45 days before the date of the Encounter or 45 days after the date of theEncounter. The data comes from all [facility]. Test Date/Time Test Type Test Details Facility Name Nov 15, 2024 06:00 AM Laboratory - Chemi stry Order TEST URINE (MA-STL) URINE YELLOW STAT [facility] Nov 18, 2024 12:00 AM Laboratory - Microbiology Order C&S URINE URINE,CLEAN CATCH [facility] Nov 18, 2024 12:00 AM Laboratory - Chemi stry Order URINALYSIS (STL-PB) URINE [facility] Nov 18, 2024 12:00 AM Laboratory - Chemi stry Order TEST URINE (MA-STL) URINE YELLOW [facility] Social History: Smoking Status (Most current) and Tobacco Use (All prior to encounter date) This section includes the most current, and the historical, smoking and tobacco- related health factors from the [place] facility where the Encounter took place. Current Smoking Status This section includes the most current smoking, or tobacco-related health factor, from the [place] facility where the Encounter took place. Date/Time Current Smoking Status Comment Facil ity Jul 31, 2023 02:36 AM ORYX ADMIT TOBACCO SCREEN YES [facility] Tobacco Use History This section includes a history of the smoking, or tobacco-related health factors, that were collected on or before the date of the Encounter. The data comes from the [place] facility where the Encounter took place. Date/Time Smoking Status/Tobacco Use Comment F acility Jul 31, 2023 02:36 AM ORYX ADMIT TOBACCO USE CIGS GR 5D [facility] Jul 31, 2023 02:36 AM ORYX DAILY TOBACCO ROOFING SALES REPRESENTATIVE REFUSED [facility] Jul 31, 2023 02:36 AM ORYX DAILY TOBACCO MEDS REFUSED [facility] Encounter Notes: All associated encounter notes This section contains the clinical notes associated to the Encounter. Date/Time Encounter Note(s) Provider Source Dec 29, 2024 04:45 PM RN PROGRESS NOTE: LOCAL TITLE: CCC: CLINICAL TRIAGE STANDARD TITLE: RN PROGRESS NOTE DATE OF NOTE: DEC 29, 2024@16:45:54 ENTRY DATE: DEC 29, 2024@16:45:55 AUTHOR: CHANDLER KELLER COSIGNER: URGENCY: STATUS: COMPLETED Caller Verification Caller/Recipient Relation to Patient: Self Caller Name: DAVID PHAN Emergency Contact: DIONNA PHAN Triage Summary Conducted triage/discussed symptoms Utilized the Triage Tool: Yes Chief Complaint: Sore Throat System WHEN: Within 8 Hours Nurse's Recommendation / WHEN: Within 8 Hours System WHERE: Urgent care center Nurse's Recommendation / WHERE: Urgent [place] Nursing Plan and Disposition Referred patient to higher level of care Instructed to go to Urgent Care (UC) Provided location of Urgent Care Center Advised of [place] Act [facility] Benefits Other course(s) of action Generated msg to PACT/Provider Provided guidance for worsening symptoms: *Caller/Patient* advised to call facilities [place] Clinical Contact Center or seek immediate medical attention for new or worsening symptoms Nurse Summary Nurse Summary: [place] called and reports she has a sore throat. He symptoms started 2 days ago. [place] was triaged and advised to be seen in the next 8 hours. She agreed and is going to a non [facility] urgent care under the [place] Act. [facility] [address] [phone] Will add Team for information only. Clinical Contact Center Codes Clinic/Location: V15 STL PHONE CCC RN Decision Support System Output: Triage Complete Triage Date: 12/29/2024, 04:35 PM Triage Note: Decision Support Tool Used: [facility] Phone Triage Fiorella, 29 Dec 2024 21:34:35 +0000 [facility] Demographics 29 y/o Female Results CC: Sore Throat Software suggested: Within 8 Hours Software suggested follow-up location: Urgent care center, consider virtual care Values and Measures Duration of CC: 2 Days Positive Responses HPI: pharyngeal swelling, asymmetric HPI: sore throat, severe VS: temperature not taken Negative Responses Denies: HPI: dysphagia, unable to swallow Denies: HPI: dyspnea, new or worsening Denies: HPI: trismus, due to pain or swelling Denies: HPI: vomiting Education Verbal Education Provided for: Sore Throat Home Care IMPORTANT: This note was created by [facility] Clinical Contact Center staff. Please do not alert the staff member by adding them as a signer for future communications. Alerts are not monitored by this user. /astrid/ CHANDLER KELLER Signed: 12/29/2024 16:45 Receipt Acknowledged By: * AWAITING SIGNATURE * MAIK RIVER * AWAITING SIGNATURE * SUKHJINDER GLEZ JASON L [facility]
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
--- OUTSIDE RECORDS SUMMARY | 2024-12-29 19:21 | XMS_ITS | Encounter Summary ---
Author Name [place] Address [address] [place] [address] Care Team Providers Care Sand Miller Name Role Phone ADELAIDE CREDA Primary Care Provider Unavailabl NAIMA Schaefer Primary [...] Sorenson's Name Patient's Relationship to Policy Sorenson [address] Oct [birth year], 2020 ACTIVE DUTY [id number] [phone] DIONNA PHAN SPOUSE Selected Encounter This section includes the information on record at [place] for the Encounter. Date/Time Encounter Type Encounter Description Reason Pro vider Source Nov 05, 2024 02:29 PM Outpatient Encounter VASCULAR SURGERY IHE Encounter Template Text not used by [facility] Plan of Treatment: Future Appointments (+ 6 months) and Future Tests (+/- 45 days) The Plan of Treatment section includes future care activities for the patient from all [facility]. This section includes future appointments and future orders which are active, pending or scheduled. Future Appointments This section includes appointments that were scheduled to occur 6 months from the date of the Encounter, up to a maximum of 20 appointments. The data comes from all [facility]. Appointment Date/Time Appointment Type Appointme nt Facility Name Nov 15, 2024 06:00 AM [facility] Nov 22, 2024 01:30 PM [facility] Nov 28, 2024 02:00 PM AMBULATORY - SURGERY [facility] Jan 10, 2025 09:20 AM AMBULATORY - SURGERY [facility] January 31, 2025 [...] of theEncounter. The data comes from all [facility]. Test Date/Time Test Type Test Details Facility Name Nov 15, 2024 06:00 AM Laboratory - Chemi stry Order TEST URINE (MA-STL) URINE YELLOW STAT [facility] Nov 18, 2024 12:00 AM Laboratory - Chemi stry Order URINALYSIS (STL-PB) URINE [facility] Nov 18, 2024 12:00 AM Laboratory - Microbiology Order C&S URINE URINE,CLEAN CATCH [facility] Nov 18, 2024 12:00 AM Laboratory - Chemi stry Order TEST URINE (MA-STL) URINE YELLOW [facility] Lab Results: +/- 30 days of [...] Specimen Type: BLOOD Comment: Test Performed by: [id number] Meter #: [id number] Ordering Provider: SUKHJINDER GLEZ Report Released Date/Time: Nov 22, 2024 03:22 PM Reporting Lab: [facility] [address] [place] [address] Performing Lab: [facility] [address] [facility] [place] [address] I-STAT, CREAT (STL-MA) 0.8 mg/dL 0.7-1.3 Nov 15, 2024 06:20 AM [facility] POC CLINITEST HCG URINE Specimen Type: URINE Comment: Test Performed by: [id number] Meter #: [id number] Ordering Provider: KWESI GONZALES Report Released Date/Time: Nov 15, 2024 06:26 AM Reporting Lab: [facility] [address] [address] Performing Lab: [place] [address] [facility] [place] [address] POC CLINITEST HCG Negative Negative Social History: Smoking Status (Most current) and Tobacco Use (All prior to encounter date) This section includes the most current, and the historical, smoking and tobacco- related health factors from the [place] facility where the Encounter took place. Current Smoking Status This section includes the most current smoking, or tobacco-related health factor, from the [place] facility where the Encounter took place. Date/Time Current Smoking Status Comment Facil ity Jul 31, 2023 02:36 AM ORYX ADMIT TOBACCO SCREEN YES [facility] Tobacco Use History This section includes a history of the smoking, or tobacco-related health factors, that were collected on or before the date of the Encounter. The data comes from the [place] facility where the Encounter took place. Date/Time Smoking Status/Tobacco Use Comment F acility Jul 31, 2023 02:36 AM ORYX ADMIT TOBACCO USE CIGS GR 5D [facility] Jul 31, 2023 02:36 AM ORYX DAILY TOBACCO RESIDENTIAL ADVISOR REFUSED [facility] Jul 31, 2023 02:36 AM ORYX DAILY TOBACCO MEDS REFUSED [facility] Radiology Reports: +/- 30 days of [...] the Encounter. The data comes from all CT treatment facilities. Date/Time Radiology Report Provider Source Nov 22, 2024 01:[address] ABD PEL W/CONT & 3D: DAVID PHAN [id number] -1995 F Exm Date: NOV 22, 2024@13:04 Req Phys: POLLY TAMAYO Pat Loc: [place]-VASCULAR SURG II (Req'g Loc Img Loc: [place]CT IMAGING [place] Service: Unknown Screen: Patient answered no [facility] [address] [place] [address] (Case [id number] COMPLETE) CT ABDOMEN AND PELVIS W/CONTRAST (CT Detailed) CPT:05849 Contrast Media : Non-ionic Iodinated Reason for [...] 25, 2024 Date Verified: NOV 25, [address] E-Sig:/ES/SHEELA NOBLE MD Report: Spiral axial imaging [...] Primary Interpreting Staff: SHEELA NOBLE MD, Radiologist (Claims Agent Right Of Way) /SHEELA DOSHI [facility] Nov 15, 2024 06:38 AM FLUOROS(SEPARATE PROCEDURE),UP TO 1 HOUR: SYLVESTERDAVID [id number] -1995 F Exm Date: NOV 15, 2024@06:38 Req Phys: KWESI GONZALES Pat Loc: OP Unknown/11-18-2024@12:32 Img Loc: [place]-MAIN RADIOLOGY SUITE Service: Unknown Screen: Patient answered no [facility] [address] [place] [address] (Case [id number] COMPLETE) FLUOROS(SEPARATE PROCEDURE),UP TO(RAD Detailed) CPT:18130 CPT Modifiers : TC TECHNICAL COMPONENT Reason for Study: venogram Clinical History: Report Status: Verified Date Reported: NOV 18, 2024 Date Verified: NOV 18, [address] E-Sig: Report: Fluoroscopy was provided to another service. For detailed report on procedure, please see note entered in CPRS by performing physician. Impression: 1. Technical service only. 2. For detailed report of procedure, please see note in CPRS entered by the by physician who performed the procedure. 3. This is a non-medical report and was therefore completed administratively. Primary Interpreting Staff: SHERLYN TAYLOR RADIOLOGIST Verified by qual field manager for SHERLYN TAYLOR /SHERLYN MORFIN [facility] Encounter Notes: All associated encounter notes This section contains the clinical notes associated to the Encounter. Date/Time Encounter Note(s) Provider Source Nov 05, 2024 02:30 PM ADMINISTRATIVE NOT E: LOCAL TITLE: ADMINISTRATIVE STL STANDARD TITLE: ADMINISTRATIVE NOTE DATE OF NOTE: NOV 05, 2024@14:30 ENTRY DATE: NOV 05, 2024@14:31:01 AUTHOR: TAYLA BRINK COSIGNER: URGENCY: STATUS: COMPLETED Patient agreeable for this surgical date: 11/15/2024@0730 Procedure: Left renal venogram Report to N [facility]: 11/15/2024@0600 Patient verbalized understanding NPO after midnight before surgery except medications. Take your usual morning medications, except for any diabetic medications, with a small sip of water. If you take the following diabetic medications, please observe the following instructions: Lantus - take 75% of the usual dose in the pm before surgery or am of surgery Empagliflozin - hold x3 days Semaglutide - hold weekly dose prior to surgery [] Stop Metformin day before and hold 2 days after procedure/surgery Stop taking: Aspirin[] Stop taking: Plavix/Clopidogrel[] Stop taking: Coumadin/Warfarin [] Stop taking: Eliquis/Apixaban; [] Stop taking: Pradaxa/Dabigatran; Xarelto/Rivaroxaban [] []DO NOT STOP ANY ANTICOAGULATION Please shower with chlorhexidine night before and morning of surgery. If chlorhexidine does not arrive by mail in time for surgery, shower with antibacterial soap It is not necessary to bring medications. Any medications you need will be provided for you. Do bring inhalers, and CPAP machine if this applies to you. 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 Name of concrete mixing truck driver: [ ] Will likely be admitted for Observation [ ] Will likely be admitted to inpatient status prior to surgery Preop information discussed with patient Patient verbalized all understanding of the above information. Patient encouraged to call surgical dept for further questions or concerns. Surgical dept extension is included within the preop letter. Anesthesia consult [] Cardiology consult [] Pulmonary consult [] EKG [] Chest X-Ray [] Labs [] /astrid/ TAYLA BRINK PA-C Physician Bingo Cashier, Surgery Signed: 11/05/2024 14:41 Receipt Acknowledged By: 11/05/2024 18:12 /es/ KWESI GONZALES Staff Physician, Vascular Surgery TAYLA BRINK [facility]
--- OUTSIDE RECORDS SUMMARY | 2024-12-29 19:21 | XMS_ITS ---
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 Date/Time Primary/Secondary Diagnosis Diagnosis Name Provider Source Nov 28, 2024 04:45 PM PRIMARY Embolism and thrombosis of renal vein CORRINE CERVANTES [facility] Plan of Treatment: Future Appointments (+ 6 months) and Future Tests (+/- 45 days) The Plan of Treatment section includes future care activities for the patient from all [place] [facility]. This section includes future appointments and future orders which are active, pending or scheduled. Future Appointments This section includes appointments that were scheduled to occur 6 months from the date of the Encounter, up to a maximum of 20 appointments. The data comes from all [facility]. Appointment Date/Time Appointment Type Appointme nt Facility Name Jan 10, 2025 09:20 AM AMBULATORY - SURGERY [facility] January 31, 2025 11:00 AM AMBULATORY - MEDICINE [facility] Active, Pending, and Scheduled Orders This section includes a listing of several types of active, pending, and scheduled orders, including clinic medications orders, diagnostic test orders, procedure orders and consult orders; where the start date of the order is 45 days before the date of the Encounter or 45 days after the date of theEncounter. The data comes from all [facility]. Test Date/Time Test Type Test Details Facility Name Nov 15, 2024 06:00 AM Laboratory - Chemi stry Order TEST URINE (MA-STL) URINE YELLOW STAT [facility] Nov 18, 2024 12:00 AM Laboratory - Chemi stry Order URINALYSIS (STL-PB) URINE [facility] Nov 18, 2024 12:00 AM Laboratory - Microbiology Order C&S URINE URINE,CLEAN CATCH [facility] Nov 18, 2024 12:00 AM Laboratory - Chemi stry Order TEST URINE (MA-STL) URINE YELLOW [facility] Lab Results: +/- 30 days of the [...] Comment Nov 22, 2024 01:16 PM [facility] I-STAT, CREAT (STL-MA) BLOOD Specimen Type: BLOOD Comment: Test Performed by: [id number] Meter #: [id number] Ordering Provider: SUKHJINDER GLEZ Report Released Date/Time: Nov 22, 2024 03:22 PM Reporting Lab: [facility] [address] [id number] Performing Lab: [facility] [address] [facility] [id number] I-STAT, CREAT (STL-MA) 0.8 mg/dL 0.7-1.3 Nov 15, 2024 06:20 AM [facility] POC CLINITEST HCG URINE Specimen Type: URINE Comment: Test Performed by: [id number] Meter #: [id number] Ordering Provider: KWESI GONZALES Report Released Date/Time: Nov 15, 2024 06:26 AM Reporting Lab: [facility] [address] [phone] Performing Lab: [place] [address] [facility] [facility] [address] POC CLINITEST HCG Negative Negative Vital Signs: All taken on the encounter date This section contains inpatient and outpatient Vital Signs collected on the date of the Encounter. Date/Time Temperature Pulse Blood Pressure Respiratory Rate SP02 Pain Height Weight Body Mass Index Source Nov 28, 2024 02:01 PM 98.3 105 121/76 [address] [facility] Social History: Smoking Status [...] AM ORYX ADMIT TOBACCO SCREEN YES [facility] Tobacco Use History This section includes a history of the smoking, or tobacco-related health factors, that were collected on or before the date of the Encounter. The data comes from the [place] facility where the Encounter took place. 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 [facility] Jul 31, 2023 02:36 AM ORYX DAILY TOBACCO MEDS REFUSED [facility] Radiology Reports: +/- 30 days of [...] ABD PEL W/CONT & 3D: LASHELL KERR [id number] -[id number] F Exm Date: NOV 22, 2024@13:04 Req Phys: POLLY TAMAYO Pat Loc: [place]-VASCULAR SURG II (Req'g Loc Img Loc: [place]AG[facility] [place] Service: Unknown Screen: Patient answered no [facility] [address] [place] [address] (Case [id number] COMPLETE) CT ABDOMEN AND PELVIS W/CONTRAST (CT Detailed) CPT:01062 Contrast Media : Non-ionic Iodinated Reason for [...] 25, 2024 Date Verified: NOV 25, 2024 Director Sales E-Sig:/ES/SHEELA NOBLE MD Report: Spiral axial imaging [...] Primary Interpreting Staff: SHEELA NOBLE MD, Radiologist (Director Sales) /[facility] SHEELA NOBLE [facility] Nov 15, 2024 06:38 AM FLUOROS(SEPARATE PROCEDURE),UP TO 1 HOUR: LASHELL KERR [id number] -[id number] F Exm Date: NOV 15, 2024@06:38 Req Phys: KWESI GONZALES Pat Loc: OP Unknown/11-18-2024@12:32 Img Loc: -MAIN RADIOLOGY SUITE Service: Unknown Screen: Patient answered no [facility] [address] [place] [address] (Case [id number] COMPLETE) FLUOROS(SEPARATE PROCEDURE),UP TO(RAD Detailed) CPT:28764 CPT Modifiers : TC TECHNICAL COMPONENT Reason for Study: venogram Clinical History: Report Status: Verified Date Reported: NOV 18, 2024 Date Verified: NOV 18, 2024 Director Sales E-Sig: Report: Fluoroscopy was provided to another [...] Interpreting Staff: SHERLYN TAYLOR, RADIOLOGIST Verified by litigation counsel for SHERLYN TAYLOR /SHERLYN MORFIN [facility] Encounter Notes: All associated encounter notes This section contains the clinical notes associated to the Encounter. Date/Time Encounter Note(s) Provider Source Nov 30, 2024 10:45 AM ADDENDUM: LOCAL TITLE: Addendum STANDARD TITLE: ADDENDUM DATE OF NOTE: NOV 30, 2024@10:45:44 ENTRY DATE: NOV 30, 2024@10:45:45 AUTHOR: KWESI GONZALES EXP COSIGNER: URGENCY: STATUS: COMPLETED I agree with resident evaluation and plan No clinical suspicion for nutcracker syndrome as depicted on recent ct alsp preassure gradient accross left renal vein is border line for diagnosis of nutcracker syndrome with no engorgement or reflux in left ovarian vein - No further vascular surgery workup indicated, patient may follow up PRN and continue care with urology The patient is aware of the treatment [...] as per medical team. I examined the patient.Neurologically intact Follow up on Non Vascular CT findings as per primary care. Left hydronephrosis again noted with dilated left renal pelvis, but no dilated ureter, possibly indicating UPJ obstruction . Enlarged myomatous uterus . cc: iraj Rubio /astrid/ KWESI GONZALES Staff Physician, Vascular Surgery Signed: 11/30/2024 10:49 Receipt Acknowledged By: 12/08/2024 22:38 /astrid/ SUKHJINDER GLEZ MD STAFF PHYSICIAN 12/05/2024 12:46 /es/ CAIO NARAYANAN MD Staff Physician, Urology --- Original Document --- 11/28/24 VASCULAR SURGERY II NOTE STL: NOV 28, 2024 Brief HPI Lashell Kerr is a 29 yo female with history of chronic back pain related to a work injury and left hydronephrosis found on MRI in 2018 initialy treated with nephrostomy tube complicated by [...] surgery for futher workup of pain. She is now s/p venogram 11/15 with renocaval pressure of 4 mmHg. S: Presents for follow up after recent venogram. CT venogram performed 11/22 reporting normal left renal vein. She continues to have urinary symptoms of urgency and incontinence, seeing Urology. Her right neck access site has had no issues. O: Temp: 98.3 F [36.8 C] (11/28/2024 14:01) Pulse Ox: Measurement DT POx (L/MIN)(%) 11/28/2024 14:01 98 11/15/2024 10:00 100 11/15/2024 07:00 100 10/31/2024 15:16 99 PULSE: 105 (11/28/2024 14:01) RESPIRATION: 20 (11/28/2024 14:01) BLOOD PRESSURE: 121/76 (11/28/2024 14:01) Life Sustaining Treatment Orders PHYSICAL EXAM: NEURO:A&Ox3 without deficits LUNGS:CTAB HEART:RRR ABDOMEN:soft, ntnd EXT:wwp without edema LABS: CHEM 7: SODIUM 137 mEq/L 10/04/2024 [...] 12:48 BASOPHILS, ABSOLUTE 0.05 10*3/uL 10/04/2024 12:48 DIAGNOSIS: left ureteral obstruction dilated left renal vein, resolved ASSESSMENT/PLAN: 29 yo female with history of left hydronephrosis related to ureteral compression sp pyeloplasty with concern for left renal vein dilation sp venogram with high/normal renocaval gradient pressure of [address] venogram. - No clinical suspicion for nutcracker syndrome as depicted on recent imaging - No further vascular surgery workup indicated, patient may follow up PRN and continue care with urology /astrid/ CORRINE CERVANTES MD Resident Physician, General Surgery II Signed: 11/28/2024 16:45 /astrid/ KWESI GONZALES Staff Physician, Vascular Surgery Cosigned: 11/30/2024 10:45 KWESI GONZALES [facility] Nov 28, 2024 02:12 PM SURGERY NOTE: LOCAL TITLE: VASCULAR SURGERY II NOTE STL STANDARD TITLE: SURGERY NOTE DATE OF NOTE: NOV 28, 2024@14:12 ENTRY DATE: NOV 28, 2024@14:12:29 AUTHOR: CORRINE CERVANTES EXP COSIGNER: KWESI GONZALES URGENCY: STATUS: COMPLETED VASCULAR SURGERY II NOTE STL Has ADDENDA NOV 28, 2024 Brief HPI Lashell Kerr is a 29 yo female with history of chronic back pain related to a work injury and left hydronephrosis found on MRI in 2018 initialy treated with nephrostomy tube complicated by [...] surgery for futher workup of pain. She is now s/p venogram 11/15 with renocaval pressure of 4 mmHg. S: Presents for follow up after recent venogram. CT venogram performed 11/22 reporting normal left renal vein. She continues to have urinary symptoms of urgency and incontinence, seeing Urology. Her right neck access site has had no issues. O: Temp: 98.3 F [36.8 C] (11/28/2024 14:01) Pulse Ox: Measurement DT POx (L/MIN)(%) 11/28/2024 14:01 98 11/15/2024 10:00 100 11/15/2024 07:00 100 10/31/2024 15:16 99 PULSE: 105 (11/28/2024 14:01) RESPIRATION: 20 (11/28/2024 14:01) BLOOD PRESSURE: 121/76 (11/28/2024 14:01) Life Sustaining Treatment Orders PHYSICAL EXAM: NEURO:A&Ox3 without deficits LUNGS:CTAB HEART:RRR ABDOMEN:soft, ntnd EXT:wwp without edema LABS: CHEM 7: SODIUM 137 mEq/L 10/04/2024 [...] 12:48 BASOPHILS, ABSOLUTE 0.05 10*3/uL 10/04/2024 12:48 DIAGNOSIS: left ureteral obstruction dilated left renal vein, resolved ASSESSMENT/PLAN: 29 yo female with history of left hydronephrosis related to ureteral compression sp pyeloplasty with concern for left renal vein dilation sp venogram with high/normal renocaval gradient pressure of [address] venogram. - No clinical suspicion for nutcracker syndrome as depicted on recent imaging - No further vascular surgery workup indicated, patient may follow up PRN and continue care with urology /astrid/ CORRINE CERVANTES MD Resident Physician, General Surgery II Signed: 11/28/2024 16:45 /andre GONZALES Staff Physician, Vascular Surgery Cosigned: 11/30/2024 10:45 11/30/2024 ADDENDUM STATUS: COMPLETED I agree with resident evaluation and plan No clinical suspicion for nutcracker syndrome as depicted on recent ct alsp preassure gradient accross left renal vein is border line for diagnosis of nutcracker syndrome with no engorgement or reflux in left ovarian vein - No further vascular surgery workup indicated, patient may follow up PRN and continue care with urology The patient is aware of the treatment [...] as per medical team. I examined the patient.Neurologically intact Follow up on Non Vascular CT findings as per primary care. Left hydronephrosis again noted with dilated left renal pelvis, but no dilated ureter, possibly indicating UPJ obstruction . Enlarged myomatous uterus . cc: iraj Rubio /astrid/ KWESI GONZALES Staff Physician, Vascular Surgery Signed: 11/30/2024 10:49 Receipt Acknowledged By: * AWAITING SIGNATURE * SUKHJINDER GLEZ * AWAITING SIGNATURE * CAIO NARAYANAN EMILY HELEN [facility] Nov 28, 2024 02:01 PM SUICIDE PREVENTION NOTE: LOCAL TITLE: ADMISSION SUICIDE SCREENING STANDARD TITLE: SUICIDE PREVENTION NOTE DATE OF NOTE: NOV 28, 2024@14:01 ENTRY DATE: NOV 28, 2024@14:02:02 AUTHOR: NINA SHEIKH EXP COSIGNER: URGENCY: STATUS: COMPLETED C-SSRS Screening [place] Suicide Severity Rating Scale (C-SSRS) screener 1. Over the past month, have you wished you were or wished you could go to sleep and not wake up? No 2. Over the past month, have you had any actual thoughts of killing yourself? No 3. Over the past month, have you been thinking about how you might do this? Response not required due to responses to other questions. 4. Over the past month, have you had these thoughts and had some intention of acting on them? Response not required due to responses to other questions. 5. Over the past month, have you started to work out or worked out the details of how to kill yourself? Response not required due to responses to other questions. 6. If yes, at any time in the past month did you intend to carry out this plan? Response not required due to responses to other questions. 7. In your lifetime, have you ever done anything, started to do anything, or prepared to do anything to end your life (for example, collected pills, obtained a gun, gave away valuables, went to the roof but didn't jump)? No 8. If YES, was this within the past 3 months? Response not required due to responses to other questions. /astrid/ Nina Sheikh LPN Licensed Practical Nurse Signed: 11/28/2024 14:03 NINA SHEIKH [facility]
[2024-12-29 19:25] VITALS: BP 118/69; PULSE 109; RESP 18; TEMP 36.4; O2SAT 97
[2024-12-29 19:48] LABS: EDSTREPNEGPOS1 Positive (Negative)
--- NOTE | 2024-12-29 19:55 | ED_ITS ---
HPI - General Adult General Chief complaint: Upper Respiratory Infection Stated complaint: Sore Throat Source: patient Mode of arrival: ambulatory Limitations: no limitations History of Present Illness HPI narrative: Patient presents for evaluation of sore throat since yesterday. Symptoms worsening today. She also has a fever and some generalized body aches. Her and daughter both have tested positive for strep recently. She denies any cough, shortness of breath, nausea, vomiting, diarrhea. She does not smoke. She took Tylenol for symptoms. Related Data Home Medications ?Medication ?Instructions ?Recorded ?Confirmed ?Last Taken ?Type diclofenac sodium 75 mg mg PO 12/29/24 Unknown History tablet,delayed release lidocaine 5 % topical patch patch 12/29/24 Unknown History methocarbamol 500 mg tablet 500 mg PO HS 12/29/24 Unknown History Allergies Allergy/AdvReac Type Severity Reaction Status Date / Time cephalexin Allergy Intermediate Rash Verified 12/29/24 19:40 Review of Systems Review of Systems: CONSTITUTIONAL: Reports fever. Denies chills, or sweats. EYES: Denies visual changes, redness, or discharge. ENT: Reports sore throat. Denies rhinorrhea, congestion, or otalgia. CARDIOVASCULAR: Denies chest pain, palpitations, or edema. RESPIRATORY: Denies cough or dyspnea. GASTROINTESTINAL: Denies abdominal pain, nausea, vomiting, or diarrhea. GENITOURINARY: Denies dysuria or hematuria. SKIN: Denies rash or itching. MUSCULOSKELETAL: Reports generalized body NEUROLOGIC: Denies headache, numbness, dizziness, or weakness. PSYCHIATRIC: Denies anxiety or depression. [facility] Past Medical History Medical History Back pain Surgical History Surgical History History of kidney surgery Family History Family History Mother Family history non-contributory Social History Social History Smoking status: Never smoker Substance use: never Living arrangements: with family Gender identity (if verbalized by the patient): Female Sexual Orientation (if Verbalized by the Patient): Straight or Heterosexual Spiritual care concerns: No Exam Narrative: GENERAL: Well-appearing, well-nourished, and in no acute distress. HEAD: Normocephalic, atraumatic. EYES: PERRLA and EOMI. ENT: Nares clear, no rhinorrhea or epistaxis. Mucous membranes moist. Posterior pharyngeal erythema without exudate. Uvula is midline.. Bilateral TMs pearly mendoza nonbulging NECK: Supple. No adenopathy or masses. No carotid bruits or JVD CHEST: Clear to auscultation. No respiratory distress. No wheezes rales or rhonchi HEART: Regular rate and rhythm. No murmur heard. Normal peripheral pulses. ABDOMEN: Soft, nontender, nondistended, normal active bowel sounds. EXTREMITIES: Normal range of motion. No edema. SKIN: Warm, dry, no rash. NEURO: No focal deficits. Alert and oriented x3. PSYCH: Normal mood and affect. Course Course Emergency Course: This is a 29-year-old female who presented for evaluation of sore throat with strep exposure. She has an allergy to cephalosporins and thinks that she may have had some breathing abnormalities while taking medication so we discussed treatment options. Through shared decision making opted to forego amoxicillin due to potential for cross sensitivity. Will discharge with azithromycin. She was instructed to follow up with primary care in the event that her symptoms are not improving she go to the ER for worsening symptoms. Patient in agreement plan of care. Level of Care: Express Care Visit Vital Signs Vital signs: Vital Signs Temperature 36.4 C L 12/29/24 19:25 Pulse Rate 109 H 12/29/24 19:25 Respiratory Rate 18 12/29/24 19:25 Blood Pressure 118/69 12/29/24 19:25 Pulse Oximetry 97 12/29/24 19:25 Oxygen Delivery Room Air 12/29/24 19:25 Temperature 36.4 C L 12/29/24 19:25 Pulse Rate 109 H 12/29/24 19:25 Respiratory Rate 18 12/29/24 19:25 Blood Pressure 118/69 12/29/24 19:25 Pulse Oximetry 97 12/29/24 19:25 Oxygen Delivery Room Air 12/29/24 19:25 Medical Decision Making Vital Signs Vital Signs: Vital Signs Temperature 36.4 C L 12/29/24 19:25 Pulse Rate 109 H 12/29/24 19:25 Respiratory Rate 18 12/29/24 19:25 Blood Pressure 118/69 12/29/24 19:25 Pulse Oximetry 97 12/29/24 19:25 Oxygen Delivery Room Air 12/29/24 19:25 Temperature 36.4 C L 12/29/24 19:25 Pulse Rate 109 H 12/29/24 19:25 Respiratory Rate 18 12/29/24 19:25 Blood Pressure 118/69 12/29/24 19:25 Pulse Oximetry 97 12/29/24 19:25 Oxygen Delivery Room Air 12/29/24 19:25 Lab Data Labs: Lab Results 12/29/24 Range/Units 19:46 POC Grp A Strep Screen Positive (Negative) Discharge Plan Discharge Clinical Impression: Strep throat Patient Disposition: Home Condition: Stable Instructions: Antibiotic Form, Strep Throat ([place]) Patient Language: Ukrainian Prescriptions: New azithromycin [Zithromax Z-Dank] 250 mg tablet See Rx Instructions .ROUTE .COMPLEX Qty: 6 0RF Rx Instructions: For 250 mg dose pack: take 500 mg today (day 1), then 250 mg for 4 days (days 2-5) No Action lidocaine 5 % adhesive patch,medicated diclofenac sodium 75 mg tablet,delayed release (DR/EC) PO methocarbamol 500 mg tablet 500 mg PO HS Follow-up/Referrals: Archie Urena MD [Physician] - Stand Alone Forms: Work/School Release IP Time of Disposition: 19:54
== END 2024-12-29 19:55 | disposition home or self-care (01) ==
PROVIDERS: Emergency Provider Nurse Practitioner
DX: J02.0 Streptococcal pharyngitis (principal)
CPT/HCPCS: 87880; 99203; G0463